=== PATIENT | female | born 1945 | race Caucasian/White ===

== ENCOUNTER → 2018-09-24 15:00 | Outpatient (CLI) | payer OTHER, SELFPAY ==
--- NOTE | 2018-09-24 | DI.MG.S_ITS ---
BILATERAL DIGITAL SCREENING MAMMOGRAM 3D/2D WITH CAD: 09/24/2018 CLINICAL: Routine screening. Family history of breast cancer. Comparison is made to exams dated: 05/21/2016 mammogram - [facility], 10/17/2014 mammogram, and 10/12/2013 mammogram - [facility]. The tissue of both breasts is heterogeneously dense. This may lower the sensitivity of mammography. Current study was also evaluated with a Computer Aided Detection (CAD) system. There are benign vascular calcifications in both breasts. No significant masses, calcifications, or other findings are seen in either breast. There has been no significant interval change. IMPRESSION: There is no mammographic evidence of malignancy. A 1 year screening mammogram is recommended. This exam was interpreted at Station ID: [id number]. NOTE: For mammograms, a report in lay terms will be sent to the patient. Approximately 15% of breast malignancies will not be visualized mammographically. In the management of a palpable breast mass, a negative mammogram must not discourage biopsy of a clinically suspicious lesion. Electronically Signed By: Roberth avitia/sebastien:09/24/2018 20:54:37 letter sent: Normal Exam ACR BI-RADS Category 2: Benign Finding(s) 3342F
== END ==
PROVIDERS: PCP Family Medicine; Visit Provider Family Medicine
DX: Z12.31 Encounter for screening mammogram for malignant neoplasm of breast (principal); Z80.3 Family history of malignant neoplasm of breast
CPT/HCPCS: 77063; 77067

== ENCOUNTER → 2020-01-06 09:51 | Outpatient (CLI) | payer MEDICARE, OTHER, SELFPAY ==
--- NOTE | 2020-01-06 | DI.MG.S_ITS ---
BILATERAL DIGITAL SCREENING MAMMOGRAM 3D/2D WITH CAD: 01/06/2020 CLINICAL: Routine screening. Family history of breast cancer. Comparison is made to exams dated: 09/24/2018 mammogram - [facility], 06/24/2017 mammogram - [facility], [facility]. The tissue of both breasts is heterogeneously dense. This may lower the sensitivity of mammography. Current study was also evaluated with a Computer Aided Detection (CAD) system. There is a 9 mm irregular mass with a spiculated margin in the left breast at 7 o'clock posterior depth 7.5 cm from the nipple. There is architectural distortion associated with the mass. No other significant masses, calcifications, or other findings are seen in either breast. IMPRESSION: INCOMPLETE: NEEDS ADDITIONAL IMAGING EVALUATION The 9 mm irregular mass in the left breast is indeterminate. A diagnostic mammogram and ultrasound is recommended. This exam was interpreted at Station ID: [id number]. NOTE: For mammograms, a report in lay terms will be sent to the patient. Approximately 15% of breast malignancies will not be visualized mammographically. In the management of a palpable breast mass, a negative mammogram must not discourage biopsy of a clinically suspicious lesion. Electronically Signed By: Jay Hudson M.D., jr/sebastien:01/06/2020 10:30:19 letter sent: Additional Imaging Needed ACR BI-RADS Category 0: Incomplete 3340F
== END ==
PROVIDERS: PCP Family Medicine; Referring Provider Family Medicine; Visit Provider Family Medicine
DX: Z12.31 Encounter for screening mammogram for malignant neoplasm of breast (principal); Z80.3 Family history of malignant neoplasm of breast
CPT/HCPCS: 77063; 77067

== ENCOUNTER → 2020-01-31 12:35 | Outpatient (CLI) | payer MEDICARE, OTHER, SELFPAY ==
--- NOTE | 2020-01-31 13:05 | DI.MG.S_ITS ---
Patient Name: XOCHITL SOTELO date: 1945 Sex: F Attending Physician: Azul Indications: Date: 01/31/2020 12:58 At the request of: AMALIA LU Procedure: MM special view LT UNILATERAL LEFT DIGITAL DIAGNOSTIC MAMMOGRAM 3D/2D WITH ADDITIONAL VIEWS: 01/31/2020 CLINICAL: Additional evaluation requested from prior study. Comparison is made to exams dated: 01/06/2020 mammogram, 09/24/2018 [address] - [facility], and 06/24/2017 mammogram - [facility]. The tissue of left breast is heterogeneously dense. This may lower the sensitivity of mammography. There is a developing 0.9 cm irregular high density mass with a spiculated margin and coarse calcification in the left breast at 9 o'clock posterior depth 1 cm from the nipple. This is seen in additional views. This is more prominent and increased in size. No other significant masses or calcifications are seen in the breast. IMPRESSION: INCOMPLETE: NEEDS ADDITIONAL IMAGING EVALUATION The developing 0.9 cm irregular high density mass in the left breast is indeterminate. An ultrasound is recommended. This was performed immediately following this exam. This exam was interpreted at Station ID: [id number]. NOTE: For mammograms, a report in lay terms will be sent to the patient. Approximately 15% of breast malignancies will not be visualized mammographically. In the management of a palpable breast mass, a negative mammogram must not discourage biopsy of a clinically suspicious lesion. Electronically Signed By: Maryuri skinner/:01/31/2020 14:52:56 Continued Report - Page 2 of 2 Patient Name: XOCHITL SOTELO date: 1945 Sex: F Attending Physician: Azul Indications: Date: 01/31/2020 12:58 At the request of: AMALIA LU Procedure: MM special view LT ACR BI-RADS Category 0: Incomplete 3340F
--- NOTE | 2020-01-31 13:59 | DI.US.S_ITS ---
Patient Name: XOCHITL SOTELO date: 1945 Sex: F Attending Physician: Azul Indications: Date: 01/31/2020 14:35 At the request of: AMALIA LU Procedure: US breast LT limited LIMITED ULTRASOUND OF LEFT BREAST AND AXILLA: 01/31/2020 CLINICAL: Patient returns today to evaluate a density in the left breast. Comparison is made to exams dated: 01/31/2020 mammogram, 01/06/2020 mammogram, 09/24/2018 mammogram - [facility], 06/24/2017 mammogram - [facility], 05/21/2016 mammogram - [facility], and 10/17/2014 mammogram - [facility]. Color flow and real-time ultrasound of the left breast 9 o'clock, retroareolar, and axilla regions were performed. Moseley scale images of the real-time examination were reviewed. There is a 9 mm irregular mass with an indistinct, angular, and spiculated margin in the left breast at 9 o'clock posterior depth. This irregular mass is hypoechoic with an echogenic boundary and posterior acoustic shadowing. This correlates with mammography findings. There are calcifications within the mass. Color flow imaging demonstrates that there is no vascularity present. No significant abnormalities were seen sonographically in the left axilla. IMPRESSION: SUSPICIOUS OF MALIGNANCY The 9 mm irregular mass in the left breast most likely is carcinoma and is at a moderate suspicion for malignancy. An ultrasound guided biopsy is recommended. Findings and recommendations were discussed with the patient by Dr Rey at time of exam. This exam was interpreted at Station ID: [id number]. Electronically Signed By: Maryuri skinner/:01/31/2020 15:11:42 letter sent: Biopsy Required Ultrasound BI-RADS: 4b Moderate suspicion of malignancy
== END ==
PROVIDERS: PCP Family Medicine; Referring Provider Family Medicine; Visit Provider Family Medicine
DX: R92.8 Other abnormal and inconclusive findings on diagnostic imaging of breast (principal); N63.25 Unspecified lump in the left breast, overlapping quadrants
CPT/HCPCS: 76642; 77065; G0279

== ENCOUNTER → 2020-02-21 10:09 | Outpatient (CLI) | payer MEDICARE, OTHER, SELFPAY ==
--- NOTE | 2020-02-21 | DI.MG.S_ITS ---
UNILATERAL LEFT DIGITAL DIAGNOSTIC MAMMOGRAM POST-PROCEDURE IMAGING FOR MARKER PLACEMENT: 02/21/2020 CLINICAL: Left post clip for left breast mass. Comparison is made to exams dated: 01/31/2020 ultrasound, 01/31/2020 mammogram, and 01/06/2020 mammogram - [facility]. The tissue of left breast is heterogeneously dense. This may lower the sensitivity of mammography. There is a marker clip in the left breast central to the nipple middle depth. This marker clip placement is 3 cm anterior from the biopsy site. Soft tissue gas foci are noted at the biopsy site. IMPRESSION: POST PROCEDURE MAMMOGRAM FOR MARKER PLACEMENT Marker clip placement in the left breast central to the nipple middle depth is migrated from biopsy site. Soft tissue foci of air fly the location of biopsy. This exam was interpreted at Station ID: [id number]. NOTE: For mammograms, a report in lay terms will be sent to the patient. Approximately 15% of breast malignancies will not be visualized mammographically. In the management of a palpable breast mass, a negative mammogram must not discourage biopsy of a clinically suspicious lesion. Electronically Signed By: Neto coates/:02/21/2020 15:02:35 ACR BI-RADS Category Post-procedure mammogram for marker placement
--- NOTE | 2020-02-21 | PATH_ITS ---
[facility] Accession Number: [id number] . 01 Material submitted: . breast - LEFT BREAST MASS 900 RETROAREOLAR . 01 Clinical history: . LEFT BREAST MASS . 01 Diagnosis: Left Breast Mass, 9 o'clock, Retroareolar, Needle Core Biopsies: Invasive ductal carcinoma; see cancer case summary. . . CANCER CASE SUMMARY - BREAST . Procedure: Needle biopsies. Specimen laterality: Left. Tumor site: 9 o'clock, retroareolar. Tumor size: 8 mm in greatest linear extent. Histologic type: Invasive carcinoma of no special type (ductal). Histologic grade: Tubular differentiation: Score 1. Nuclear pleomorphism: Score 2. Mitotic rate: Score 1. Overall grade: Grade 1 DCIS: Not identified. Lymphovascular invasion: Not identified. Microcalcifications: Not identified. . CAP BREAST BIOMARKER REPORTING TEMPLATE: . Estrogen Receptor (ER) Status: Positive, 90% Average intensity of staining: Strong Primary antibody: SP1 Progesterone Receptor (PgR) Status: Positive, 20% Average intensity of staining: Intermediate Primary antibody: 1E2 HER2 (by immunohistochemistry): Negative (1+) Primary antibody: 4B5 . . Cold Ischemia and Fixation Times: Meets requirements in the latest version of the ASCO/CAP guidelines. Testing performed on Block Number: . TECHNICAL NOTE: The scoring criteria for breast biomarkers by immunohistochemistry is based on the current ASCO/CAP guidelines (Maximino et al, Arch Pathol Lab Med 2010: 134(6): 907-922 / Zuleyma Snow, Arch Pathol Lab Med 2014: 138(2): 241-256). Deparaffinized sections of formalin fixed tissue (along with appropriate positive controls) are incubated with the above antibody(s). Using the automated Pl[place]ine stainer, tissue is incubated with the designated antibody* which is then localized by a non-biotin, dual polymer detection system. The external controls are reviewed for appropriate reactivity and found to be adequate. Results on the target cell population are indicated above. These tests have not been validated on decalcified tissue. . * This test was developed and its performance characteristics determined by [employer]. It has not been cleared or approved by the U.S. Food and Drug Administration. The FDA has determined that such clearance or approval is not necessary. This test is used for clinical purposes. It should not be regarded as investigational or for research. V 02/24/2020 1457 [facility] . 01 Comment: As part of routine quality eng, Dr. Storey has reviewed this case and agrees with the diagnosis of invasive ductal carcinoma. The finding of carcinoma was reported to Dr. Liang via RN Miryam by Dr. Alford on 02/23/2020. . 01 Electronically signed: . Bob Alford MD, PhD, Pathologist NPI- [id number] . 01 Gross description: . Received one formalin-filled container, labeled with the patient's name and designated LT breast mass 9 o'clock retroareolar. The specimen is received with a plastic filter in container, sample loose in container and consists of four yellow-molina to molina-nesbitt portions of tissue and blood which range in size from 0.7 x 0.4 x 0.4 cm to 1.5 x 0.4 x 0.4 cm. All fragments are totally submitted in one cassette. No collection date or time per container. Possible collection date and time per requisition: 02/21/20 at 12:14. Total fixation time: Approximately 36 hours. ([id number]) /[facility] 02/23/20209 Local . 01 Pathologist provided ICD-10: C50.919 . 01 CPT . 810341, M60045, [id number] Performed at: 01 [facility] [address] [place] [address] [address] [facility], [place], [place] [id number] MD Joel Nelson MD Phone: [phone]
--- NOTE | 2020-02-21 | DI.US.S_ITS ---
ULTRASOUND GUIDED BIOPSY LEFT BREAST USING VACUUM DEVICE WITH MARKING DEVICE INSERTED AND POST DIGITAL MAMMOGRAPHIC IMAGIN02/21/2020 CLINICAL: Left breast mass. Left breast biopsy, clip placement imaging. PATIENT CONSENT: Risks (minor bleeding, infection, vasovagal reaction and repeat procedure), benefits and alternatives were explained to the patient and written informed consent was obtained. Correlation is made to exams dated: 02/21/2020 mammogram, 01/31/2020 ultrasound, 01/31/2020 mammogram, and 01/06/2020 mammogram - [facility]. An ultrasound guided biopsy using real-time ultrasound was performed for the irregular shaped mass located in the left breast at 9 o'clock middle depth. The mass measured 0.9 x 0.9 x 0.7 cm on the prior diagnostic ultrasound. The skin was prepped in the usual manner. Local anesthetic was administered to the access site. A small incision was made in the breast. The abnormality was approached from the lateral aspect. A biopsy needle was placed adjacent to the abnormality under ultrasound guidance. Once the needle was documented to be in the correct location, four specimens were obtained using the Mammotome biopsy system. A Celero clip was inserted into the biopsy cavity. Post procedure digital mammographic imaging was obtained. The specimens were sent to the laboratory for pathological analysis. IMPRESSION: ULTRASOUND GUIDED BIOPSY MALIGNANT Ultrasound guided biopsy of the mass in the left breast at 9 o'clock middle depth was successful. Pathology indicates malignant invasive ductal carcinoma (ID). Pathology results are concordant with imaging findings. A surgical/oncologic consultation is recommended. This exam was interpreted at Station ID: [id number]. Neto coates,slc/:02/29/2020 08:24:36
--- NOTE | 2020-02-24 14:40 | PC.NURSE ---
Pt called requesting to speak to oncologist to discuss recent imaging and neww CA diagnoses. She reports her PCP gave her results and instructed her to call this clinic and speak to an oncologist. This RN provided pt with referral protocol and discussed involvement of pt Aysha negron. Pt information provided to Aysha who agrees to contact pt.
== END ==
PROVIDERS: PCP Family Medicine; Referring Provider Family Medicine; Visit Provider Family Medicine
DX: C50.812 Malignant neoplasm of overlapping sites of left female breast (principal); Z17.0 Estrogen receptor positive status [ER+]
CPT/HCPCS: 19083; 77065

== ENCOUNTER → 2020-09-05 10:39 | Outpatient (CLI) | payer MEDICARE, OTHER, SELFPAY ==
--- NOTE | 2020-09-05 | DI.MRI.S_ITS ---
PROCEDURE: MR STROKE Pre- and post-contrast brain MRI, non-contrast brain MR angiogram, pre- and postcontrast neck MR angiogram INDICATIONS: Acute cerebellar ataxia TECHNIQUE: Brain: Noncontrast axial T1 spin echo, axial T2 fast spin echo, sagittal and axial FLAIR, coronal T2 fast spin echo, axial gradient echo, axial diffusion and ADC through the brain. After the administration of contrast, axial 3D VIBE of the cranial vasculature and brain. Brain MRA: Non-contrast 3-D time of flight MR angiogram, with multiple cuzvurp-cuahxmdvu-qvgirhciap (MIP) reformats performed. Neck MRA: Axial and sagittal TruFISP through the neck. Coronal dynamic MR angiogram during administration of contrast in the arterial and venous phases, with 3-dimenstional acoiuzt-czdwxliix-qfnibdbldg (MIP) reformats constructed from subtraction images. COMPARISON: None. FINDINGS: Image quality: Excellent. BRAIN: CSF spaces: Ventricles are normal in size and shape. Basal cisterns are patent. No extra-axial fluid collections. Brain: No intracranial bleeds or mass effects. Moseley-white matter interface is normal. Diffusion weighted images show no acute ischemic insults. Brainstem appears normal. Normal intravascular flow voids are present. No abnormal intracranial enhancement. Brain parenchymal volume loss is seen. Chronic small vessel ischemic changes are seen. Skull and face: Calvarial marrow signal is normal. Orbits appear normal. Sinuses: Mucous retention cysts can be seen within the inferior aspects of the maxillary sinuses. Sinuses and mastoids are otherwise clear. BRAIN MR ANGIOGRAM: Anterior circulation: Intracranial internal carotid arteries are normal in size and enhancement. The flow within the paired anterior cerebral arteries is normal and symmetric. The flow within the middle cerebral arteries is normal and symmetric. The anterior communicating artery is seen. No stenoses, occlusions, or aneurysms. Posterior circulation: The left vertebral artery is normal. The right vertebral artery largely terminates in the right posterior inferior cerebellar artery. There is a normal appearing basilar artery. The flow within the posterior cerebral arteries is normal and symmetric. No stenoses, occlusions, or aneurysms. NECK MR ANGIOGRAM: Carotids: Incidental note is made of a common origin of the right brachiocephalic artery and the left common carotid artery (bovine type arch). This is considered to be a developmental variant of no clinical consequence. The origins of the common carotid arteries appear patent. The calibers and courses of both common carotid arteries are normal. The bifurcation regions appear normal bilaterally. The internal carotid arteries demonstrate normal course and caliber. Posterior circulation: The origin of the right vertebral artery demonstrates at least 50% narrowing. The origin of the left vertebral artery is unremarkable. More superior portions of both vertebral arteries demonstrate normal course and caliber, with the left vertebral artery dominant to the right. Miscellaneous: Subclavian arteries appear patent. Pre-contrast images through the neck show no soft tissue abnormalities. IMPRESSION: BRAIN MRI: Negative for acute or subacute infarction, including involving the cerebellum. No masses or abnormal enhancement can be seen. Note is made of age-appropriate brain parenchymal volume loss and chronic small vessel ischemic changes. BRAIN MR ANGIOGRAM: No significant intracranial arterial abnormality is seen. NECK MR ANGIOGRAM: No significant carotid narrowing can be seen. At least 50% narrowing of the origin of the right vertebral artery. Dictated by: Aleksander Garcia M.D. on 09/05/2020 at 12:36 Approved by: Aleksander Garcia M.D. on 09/05/2020 at 12:39
== END ==
PROVIDERS: PCP Family Medicine; Referring Provider Family Medicine; Visit Provider Family Medicine
DX: G11.9 Hereditary ataxia, unspecified (principal)
CPT/HCPCS: 70548; 70553; A9579

== ENCOUNTER → 2020-10-04 11:15 | Outpatient (CLI) | payer MEDICARE, OTHER, SELFPAY | PROVIDERS: PCP Family Medicine; Referring Provider Internal Medicine; Visit Provider Internal Medicine | DX: C50.912 Malignant neoplasm of unspecified site of left female breast (principal); Z53.8 Procedure and treatment not carried out for other reasons ==

== ENCOUNTER → 2020-10-25 12:19 | Outpatient (CLI) | payer MEDICARE, OTHER, SELFPAY ==
[2020-10-25 20:43] LABS: COVID19 - ORCAS (NP or Nasal) Negative (Negative)
== END ==
PROVIDERS: PCP Family Medicine; Visit Provider Family Medicine
DX: Z20.822 Contact with and (suspected) exposure to COVID-19 (principal)
CPT/HCPCS: C9803; U0003

== ENCOUNTER 2020-11-23 14:02 | Emergency (ER) | payer MEDICARE, OTHER, SELFPAY ==
[2020-11-23 14:13] VITALS: BP 198/84; PULSE 85; RESP 15; TEMP 36.3; O2SAT 97; BMI 33.9
--- NOTE | 2020-11-23 14:16 | DI.US.S_ITS ---
PROCEDURE: US PERIPH VENOUS LOW EXTREM LT INDICATIONS: Swelling and redness TECHNIQUE: Real-time imaging, as well as color and pulse Doppler interrogation, were performed of the lower extremity deep veins from the inguinal ligament to the popliteal fossa. COMPARISON: None. FINDINGS: The common femoral, femoral and popliteal veins are normally compressible, and free of intraluminal thrombus. Color and pulse Doppler demonstrate normal phasic intraluminal flow. There is normal augmentation response to distal compression maneuver. IMPRESSION: No evidence of deep venous thrombosis, left lower extremity Dictated by: Dante Toure M.D. on 11/23/2020 at 14:11 Approved by: Dante Toure M.D. on 11/23/2020 at 14:12
--- NOTE | 2020-11-23 16:21 | ED.EXTPRO ---
HPI - Extremity Problem General Chief complaint: Extremity Problem,Nontraumatic Stated complaint: sent from [facility], swollen/red leg, poss inf or DVT Time Seen by Provider: 11/23/20 16:21 Source: patient Mode of arrival: Ambulatory Limitations: no limitations History of Present Illness HPI Narrative: 75-year-old woman presents with left lower extremity edema before to rule out deep venous thrombosis. She notes that she has a history of and a hyperlipidemia and breast cancer. She also notes that in May of 2020 she had an injury to the left anterior ortiz that took an extended period of time to heal is occasionally still red and occasionally still painful. When she continued to have more edema on the left side rather than the right side she saw a provider at work is who recommended an ultrasound. She describes no chest pain, orthopnea, palpitations, dyspnea or exertional dyspnea. She has had no fevers or chills. Does not describe any additional lymphadenopathy upper left leg. She does note that her mother had chronic severe lymphedema that started about the same age that the patient currently is. She found that wearing a compression sock yesterday was helpful with both pain and swelling. Related Data Home Medications Medication Instructions Recorded Confirmed anastrozole 1 mg tablet 1 mg PO DAILY 11/20/20 11/23/20 ibuprofen 400 mg tablet 400 mg PO Q6H PRN 11/20/20 11/23/20 multivitamin 1 tab PO DAILY 11/20/20 11/23/20 calcium carbonate 500 mg (1,250 1 tab PO BID 11/23/20 11/23/20 mg)-vitamin D3 200 unit tablet Previous Rx's Medication Instructions Recorded pravastatin 40 mg PO Q EVENING #90 tab 09/04/16 Allergies Allergy/AdvReac Type Severity Reaction Status Date / Time Sulfa (Sulfonamide Allergy Mild Sores in Verified 11/23/20 14:13 Antibiotics) mouth [SULFA (SULFONAMIDE ANTIBIOTICS)] Review of Systems Review of Systems Narrative: Remainder of complete review of systems is otherwise unremarkable except for that included in the HPI. Patient History Medical History Other hyperlipidemia (07/11/15) Swelling of left lower extremity Social History Smoking Status: Never smoker Smoking Status: Never smoker alcohol intake frequency: holidays/special occasions only Substance Use Type: does not use Exam Narrative Exam Narrative: General: Alert appropriate in no acute distress Respiratory: Able to speak in full sentences, no obvious respiratory distress Skin: No obvious rashes, warm and dry Lower extremities: 1+ lower extremity edema on the right 2+ on the left. She has a wound on the left anterior ortiz that is well healed but still visible. There is no surrounding cellulitis no abscess and no evidence of infection. Neurologic: Grossly intact no obvious asymmetries or abnormalities Psych: appropriate insight and affect, cooperative Initial Vital Signs Initial Vital Signs: Vital Signs Temperature 97.4 F L 11/23/20 14:13 Pulse Rate 85 11/23/20 14:13 Respiratory Rate 15 11/23/20 14:13 Blood Pressure 198/84 H 11/23/20 14:13 Pulse Oximetry 97 11/23/20 14:13 Course Orders Ordered: ED Orders 11/23/20 14:16 US periph venous low extrem lt Stat Vital Signs Vital signs: Vital Signs - 8 hr 11/23/20 14:13 Temperature 97.4 F L Pulse Rate 85 Respiratory Rate 15 Blood Pressure 198/84 H Pulse Oximetry 97 MDM - Extremity (Nontraumatic) Imaging Data US - DVT: Radiologist's Impression: FINDINGS: The common femoral, femoral and popliteal veins are normally compressible, and free of intraluminal thrombus. Color and pulse Doppler demonstrate normal phasic intraluminal flow. There is normal augmentation response to distal compression maneuver. IMPRESSION: No evidence of deep venous thrombosis, left lower extremity Dictated by: Dante Toure M.D. on 11/23/2020 at 14:11 MDM Narrative Medical decision making narrative: 75-year-old woman with lower extremity edema. Injury to the anterior left ortiz about 6 months ago likely disrupted lymphatic return contributing to the continued swelling on the side. No evidence of a DVT or cellulitis. He had a nice discussion regarding compression socks and their use in managing chronic edema as well as pain from the persistent edema. She is safe for home discharge Discharge Plan Departure Patient Disposition: Home Clinical Impression: Swelling of left lower extremity Instructions: DI for Dependent Edema Activity Restrictions/Additional Instructions: Ultrasound today does not show any evidence of deep vein thrombosis. Your clinical exam does not suggest any cellulitis. I would recommend using compression socks. Doing an online search for compression socks will bleed due to ones that are used in the running community or by providers in people that stand up for extended period of time. I find that these commercial socks are much more comfortable than any of the prescription versions. I would encourage you to wear them as much as you are able to to prevent continued recurrent edema. I wish you the best Prescriptions: No Action pravastatin 40 MG tablet 40 mg PO Q EVENING Qty: 90 RF: 3 calcium carbonate-vitamin D3 [Calcium 500 + D] 500 mg(1,250mg) -200 unit tablet 1 tab PO BID RF: 0 ibuprofen 400 mg tablet 400 mg PO Q6H PRN (Reason: pain) RF: 0 multivitamin [Multiple Vitamins] Tablet 1 tab PO DAILY RF: 0 anastrozole 1 mg tablet 1 mg PO DAILY RF: 0 Referrals: Carlie Sandhu PA-C [Primary Care Provider] -
--- NOTE | 2020-11-23 17:54 | PC.NURSE ---
Assessed and seen by MD in waiting area without RN involvement.
== END 2020-11-23 17:55 | disposition home or self-care (01) ==
PROVIDERS: Emergency Provider Emergency Medicine; PCP Physician Assistant
DX: M79.89 Other specified soft tissue disorders (principal)
CPT/HCPCS: 93971; 99281; 99283

== ENCOUNTER → 2021-07-12 09:10 | Outpatient (CLI) | payer MEDICARE, OTHER, SELFPAY ==
[2021-07-12 19:06] LABS: Add Manual Diff / Slide Review NO; Basophils Absolute Auto 100 /uL (0-100); Basophils Percent Auto 1.3 % (0-2); Eosinophils Absolute Auto 200 /uL (0-450); Eosinophils Percent Auto 3.7 % (2-4); Hematocrit 40.1 % (36-46); Hemoglobin 13.5 g/dL (12.0-16.0); Lymphocytes Absolute Auto 1600 /uL (1100-4500); Lymphocytes Percent Auto 28.9 % (25-40); Mean Corpuscular HGB Conc 33.8 % (30-36); Mean Corpuscular Hemoglobin 29.7 PG (26-34); Mean Corpuscular Volume 87.8 fL (80-100); Monocytes Absolute Auto 600 /uL (0-900); Monocytes Percent Auto 9.9 % (3-14); Neutrophils Absolute Auto 3200 /uL (1500-7000); Neutrophils Percent Auto 56.2 % (50-75); Platelet Count 230 X10^3/uL (150-400); Red Blood Cell Count 4.57 X10^6/uL (4.0-5.2); White Blood Cell Count 5.7 X10^3/uL (4.5-11.0)
[2021-07-12 19:08] LABS: Alanine Aminotransferase 23 IU/L (<35); Albumin 4.1 g/dL (3.5-5.0); Albumin Globulin Ratio 1.2 (1.0-2.8); Alkaline Phosphatase 85 U/L (38-126); Aspartate Aminotransferase 32 IU/L (14-36); BUN Creatinine Ratio 26.3 (6-22); Bilirubin Total 0.5 mg/dL (0.2-1.3); Blood Urea Nitrogen 21 mg/dL (7-17); Calcium 9.6 mg/dL (8.4-10.2); Carbon Dioxide 28 mmol/L (22-32); Chloride 107 mmol/L (98-107); Cholesterol 202 mg/dL (140-199); Estimated Glomerular Filt Rate > 60.0 mL/min (>60); Globulin 3.3 g/dL (1.7-4.1); Glucose 98 mg/dL (80-110); HDL Cholesterol 48 mg/dL (40-60); HEMOLYSIS 21 (0-50); LDL Cholesterol Calculated 115 mg/dL (<100); Potassium 4.3 mmol/L (3.4-5.1); Sodium 140 mmol/L (137-145); Total Protein 7.4 g/dL (6.3-8.2); Triglycerides 193 mg/dL (35-150)
[2021-07-12 19:35] LABS: TSH w/ Reflex to FT4 2.81 uIU/mL (0.47-4.68)
== END ==
PROVIDERS: PCP Physician Assistant; Visit Provider Family Medicine
DX: Z79.899 Other long term (current) drug therapy (principal); I10 Essential (primary) hypertension; M79.89 Other specified soft tissue disorders
CPT/HCPCS: 80053; 80061; 84443; 85025

== ENCOUNTER → 2022-02-21 15:46 | Outpatient (CLI) | payer MEDICARE, OTHER, SELFPAY ==
--- NOTE | 2022-02-21 | DI.MG.S_ITS ---
BILATERAL DIGITAL SCREENING MAMMOGRAM 3D/2D WITH CAD: 02/21/2022 CLINICAL: Routine screening. Personal history of left breast cancer. Family history of breast cancer. Comparison is made to exams dated: 02/08/2021 mammogram, 11/07/2020 mammogram - [facility], 01/06/2020 mammogram, and 09/24/2018 mammogram - [facility]. Both breasts are heterogeneously dense, which may obscure small masses (category c / 51-75% glandular tissue). Current study was also evaluated with a Computer Aided Detection (CAD) system. No significant masses, calcifications, or other findings are seen in either breast. There has been no significant interval change. IMPRESSION: NEGATIVE There is no mammographic evidence of malignancy. A 1 year screening mammogram is recommended. This exam was interpreted at Station ID: [id number]. NOTE: For mammograms, a report in lay terms will be sent to the patient. Approximately 15% of breast malignancies will not be visualized mammographically. In the management of a palpable breast mass, a negative mammogram must not discourage biopsy of a clinically suspicious lesion. Electronically Signed By: Jay Hudson M.D., jr/sebastien:02/22/2022 08:45:41 letter sent: Normal Exam ACR BI-RADS Category 1: Negative [id number]
== END ==
PROVIDERS: PCP Family Medicine; Referring Provider Internal Medicine; Visit Provider Internal Medicine
DX: Z12.31 Encounter for screening mammogram for malignant neoplasm of breast (principal); Z80.3 Family history of malignant neoplasm of breast; Z85.3 Personal history of malignant neoplasm of breast
CPT/HCPCS: 77063; 77067

== ENCOUNTER → 2022-07-02 10:59 | Outpatient (CLI) | payer MEDICARE, OTHER, SELFPAY | PROVIDERS: PCP Family Medicine; Referring Provider Registered Nurse; Visit Provider Registered Nurse | DX: Z79.818 Long term (current) use of other agents affecting estrogen receptors and estrogen levels; Z13.820 Encounter for screening for osteoporosis; Z78.0 Asymptomatic menopausal state | CPT/HCPCS: 77080 ==

== ENCOUNTER 2022-08-19 18:07 | Emergency (ER) | payer MEDICARE, OTHER, SELFPAY ==
[2022-08-19] VITALS (7 sets, daily range): BP systolic 161–221; BP diastolic 74–91; PULSE 81–98; RESP 12–17; TEMP 36.8; O2SAT 96–99; BMI 33.3
--- NOTE | 2022-08-19 18:20 | DI.CT.S_ITS ---
PROCEDURE: CT ABDOMEN PELVIS W CON INDICATIONS: Abdominal pain TECHNIQUE: After the administration of oral and IV contrast, axial sections were acquired from the lung bases to the pubic symphysis. Coronal and sagittal reformats were performed. For radiation dose reduction, the following was used: automated exposure control, adjustment of mA and/or kV according to patient size. COMPARISON: None. FINDINGS: Image quality: Excellent. Lung bases: Unremarkable. Small hiatal hernia. Heart: No significant findings. ABDOMEN: Liver: Normal in size. Mild hepatic steatosis. There are multiple low-density nodules in liver, most likely hepatic cysts. Gallbladder: There are multiple gallstones. No gallbladder wall thickening or pericholecystic fluid collection Biliary ducts: Unremarkable. Pancreas: Unremarkable. Spleen: Unremarkable. Adrenal Glands: Unremarkable. Kidneys and Ureters: Unremarkable. Stomach and Bowel: Stomach, small bowel loops, and colon are normal in caliber. There are numerous colonic diverticula. There is focal thickening and pericolonic stranding in the distal descending colon/proximal sigmoid colon, consistent with acute diverticulitis. Peritoneum: No abnormal intraperitoneal fluid. No free air. Ventral Wall: No hernia. Abdominal Nodes: No retroperitoneal or mesenteric adenopathy by size criteria. Vessels: Aorta and inferior vena cava are normal in size. PELVIS: Pelvic Organs: Unremarkable. Bladder: Unremarkable. Pelvic Nodes: No enlarged lymph nodes. Miscellaneous: No inguinal hernias are seen. Bones: Moderate to severe degenerative changes in lumbar spine. IMPRESSION: 1. Acute diverticulitis of the distal descending colon/proximal sigmoid colon. 2. Cholelithiasis. No CT findings to suggest acute cholecystitis. 3. Mild hepatic steatosis. There are multiple hepatic cysts. Dictated by: Radha Ervin M.D. on 08/19/2022 at 20:34 Approved by: Radha Ervin M.D. on 08/19/2022 at 20:38
--- NOTE | 2022-08-19 18:36 | ED.ABDPAIN ---
HPI - Abdominal Pain <Harsha Connor PA-C - Last Filed: 08/19/22 20:22> General Chief Complaint: Abdominal Pain Stated Complaint: abd pain Time Seen by Provider: 08/19/22 18:19 Source: patient Mode of arrival: Ambulatory History of Present Illness HPI narrative: 77-year-old female with past medical history breast cancer, hypertension, hyperlipidemia presentsTo the ED with 4 days of lower abdominal pain. Patient was seen by Dr. Gamboa at the [facility] earlier today, sent to the ED for further evaluation due to concern over the physical exam where Patient exhibited rebound and guarding. Patient states that her pain is dull, spans the lower abdomen on both sides, worsened with movements and walking. Patient states that the pain is very mildly alleviated by bowel movements. Patient endorses loose bowel movements for the past 3 days, denies melena or hematochezia, denies that it is watery diarrhea. Endorses eating some sabillon on the day prior to feeling sick. Denies fever, chills, chest pain, shortness of breath, cough, nausea, vomiting, dysuria, lightheadedness, dizziness, syncope. Related Data Home Medications Medication Instructions Recorded Confirmed anastrozole 1 mg tablet 1 mg PO DAILY 11/20/20 08/19/22 ibuprofen 400 mg tablet 400 mg PO Q6H PRN pain 11/20/20 08/19/22 multivitamin (Multiple Vitamins 1 tab PO DAILY 11/20/20 08/19/22 tablet) calcium carbonate 500 mg calcium 500 mg PO BID 08/19/22 08/19/22 (1,250 mg) tablet Previous Rx's Medication Instructions Recorded pravastatin 40 mg tablet 40 mg PO Q EVENING #90 tabs 01/30/22 triamcinolone acetonide 0.1 % 1 applic topical DAILY #30 grams 03/11/22 topical cream ciprofloxacin HCl 500 mg tablet 500 mg PO BID #20 tabs 08/19/22 (Cipro) metronidazole 500 mg tablet 500 mg PO Q8H #30 tabs 08/19/22 Allergies Allergy/AdvReac Type Severity Reaction Status Date / Time Sulfa (Sulfonamide Allergy Mild Sores in Verified 03/07/22 14:14 Antibiotics) mouth [SULFA (SULFONAMIDE ANTIBIOTICS)] Review of Systems <Harsha Connor PA-C - Last Filed: 08/19/22 20:22> Review of Systems ROS Unobtainable: All systems reviewed & are unremarkable except as noted in HPI and below Constitutional Constitutional: Denies chills, Denies fatigue, Denies fever(s), Denies frequent falls, Denies lethargy and Denies weakness Eyes Eyes: Denies change in vision, Denies eye discharge, Denies irritation and Denies loss of vision ENT Ears, Nose, Mouth, and Throat: Denies change in voice, Denies dizziness, Denies neck pain, Denies sore throat and Denies throat swelling Cardiovascular Cardiovascular: Denies chest pain, Denies irregular heart rhythm, Denies lightheadedness, Denies palpitations, Denies dyspnea, Denies dyspnea on exertion and Denies orthopnea Respiratory Respiratory: Denies cough, Denies dyspnea, Denies dyspnea on exertion and Denies wheezing Gastrointestinal Gastrointestinal: Reports abdominal pain, Denies change in bowel habits, Denies diarrhea, Reports loose stools, Denies nausea and Denies vomiting Genitourinary Genitourinary: Denies hematuria, Denies flank pain, Denies urinary incontinence and Denies urinary urgency Musculoskeletal Musculoskeletal: Denies back pain, Denies muscle weakness, Denies neck pain, Denies numbness and Denies tingling Integumentary/Breasts Skin/Breast: Denies pruritus, Denies erythema, Denies rash and Denies wounds Neurologic Neurologic: Denies behavioral changes, Denies confusion, Denies dizziness, Denies frequent falls, Denies loss of vision, Denies numbness, Denies tingling and Denies weakness Psychiatric Psychiatric: Denies anxiety, Denies behavioral changes, Denies confusion, Denies depression, Denies homicidal ideation and Denies suicidal ideation Endocrine Endocrine: Denies fatigue, Denies flushing and Denies palpitations Hematologic/Lymphatic Hematologic/Lymphatic: Denies easy bruising Allergic/Immunologic Allergic/Immunologic: Denies urticaria, Denies throat swelling and Denies wheezing Patient History <Harsha Connor PA-C - Last Filed: 08/19/22 20:22> Medical History Other hyperlipidemia (07/11/15) Social History Smoking Status: Never smoker Smoking Status: Never smoker alcohol intake frequency: holidays/special occasions only Substance Use Type: does not use Exam <Harsha Connor PA-C - Last Filed: 08/19/22 20:22> Narrative Exam Narrative: Const General:?cooperative, healthy appearing and comfortable [facility] Head:?normal to inspection Ears:?hearing grossly normal bilaterally Nose:?external nose normal Face and sinus:?normal facial exam and sinuses nontender Mouth:?oral mucosae normal Throat:?posterior oropharynx normal Eyes General:?appearance normal, both eyes and all related structures Neck Neck:?normal visual inspection and no lymphadenopathy noted Resp Effort & Inspection:?normal respiratory effort Auscultation:?clear to auscultation bilaterally Cardio Rate:?regular rate Rhythm:?regular rhythm GI Abdomen is soft, nondistended. Abdomen is tender to palpation in bilateral lower quadrants as well as the suprapubic area. There is some guarding and rebound. Neuro General:?patient alert, patient awake and patient oriented x3 Initial Vital Signs Initial Vital Signs: Vital Signs Temperature 98.3 F 08/19/22 18:17 Pulse Rate 98 H 08/19/22 18:17 Respiratory Rate 17 08/19/22 18:17 Blood Pressure 221/91 H 08/19/22 18:17 Pulse Oximetry 96 08/19/22 18:17 Oxygen Delivery Method Room Air 08/19/22 18:17 <Erika Simon DO - Last Filed: 08/20/22 02:12> Initial Vital Signs Initial Vital Signs: Vital Signs Temperature 98.3 F 08/19/22 18:17 Pulse Rate 98 H 08/19/22 18:17 Respiratory Rate 17 08/19/22 18:17 Blood Pressure 221/91 H 08/19/22 18:17 Pulse Oximetry 96 08/19/22 18:17 Oxygen Delivery Method Room Air 08/19/22 18:17 Course <Harsha Connor PA-C - Last Filed: 08/19/22 20:22> Orders Ordered: ED Orders 08/19/22 18:20 CT abdomen pelvis w con Stat 08/19/22 18:28 Complete Blood Count AUTO DIFF Stat Comprehensive Metabolic Panel Stat Lactate (Lactic Acid) Stat Lipase Stat Vital Signs Vital signs: Vital Signs - 8 hr 08/19/22 18:17 08/19/22 18:33 08/19/22 18:35 Temperature 98.3 F Pulse Rate 98 H 90 91 H Respiratory Rate 17 Blood Pressure 221/91 H Pulse Oximetry 96 97 99 Oxygen Delivery Method Room Air 08/19/22 18:35 08/19/22 19:22 08/19/22 19:30 Temperature Pulse Rate 89 82 Respiratory Rate 12 Blood Pressure 204/84 H Pulse Oximetry 98 Oxygen Delivery Method 08/19/22 19:33 08/19/22 19:33 08/19/22 20:00 Temperature Pulse Rate 82 Respiratory Rate 17 Blood Pressure 174/74 H 161/74 H Pulse Oximetry 99 Oxygen Delivery Method 08/19/22 20:00 Temperature Pulse Rate 81 Respiratory Rate 14 Blood Pressure Pulse Oximetry 97 Oxygen Delivery Method <Erika Simon DO - Last Filed: 08/20/22 02:12> Orders Ordered: ED Orders 08/19/22 18:20 CT abdomen pelvis w con Stat 08/19/22 18:28 Complete Blood Count AUTO DIFF Stat Comprehensive Metabolic Panel Stat Lactate (Lactic Acid) Stat Lipase Stat Vital Signs Vital signs: Vital Signs - 8 hr 08/19/22 18:17 08/19/22 18:33 08/19/22 18:35 Temperature 98.3 F Pulse Rate 98 H 90 91 H Respiratory Rate 17 Blood Pressure 221/91 H Pulse Oximetry 96 97 99 Oxygen Delivery Method Room Air 08/19/22 18:35 08/19/22 19:22 08/19/22 19:30 Temperature Pulse Rate 89 82 Respiratory Rate 12 Blood Pressure 204/84 H Pulse Oximetry 98 Oxygen Delivery Method 08/19/22 19:33 08/19/22 19:33 08/19/22 20:00 Temperature Pulse Rate 82 Respiratory Rate 17 Blood Pressure 174/74 H 161/74 H Pulse Oximetry 99 Oxygen Delivery Method 08/19/22 20:00 Temperature Pulse Rate 81 Respiratory Rate 14 Blood Pressure Pulse Oximetry 97 Oxygen Delivery Method MDM - Abdominal Pain <Harsha Connor PA-C - Last Filed: 08/19/22 20:22> Lab Data 08/19/22 18:28 08/19/22 18:28 Labs: Lab Results 08/19/22 08/19/22 08/19/22 Range/Units 18:28 18:28 18:28 WBC 6.9 (4.5-11.0) X10^3/uL RBC 4.46 (4.0-5.2) X10^6/uL Hgb 13.2 (12.0-16.0) g/dL Hct 40.0 (36-46) % MCV 89.8 (80-100) fL MCH 29.7 (26-34) PG MCHC 33.1 (30-36) % RDW 13.3 (11.6-14.8) % Plt Count 245 (150-400) X10^3/uL Neut % (Auto) 48.2 L (50-75) % Lymph % (Auto) 38.7 (25-40) % [place] % (Auto) 9.6 (3-14) % Eos % (Auto) 3.2 (2-4) % Baso % (Auto) 0.3 (0-2) % Neut # (Auto) 3300 (6475-9569) /uL Lymph # (Auto) 2700 (0352-5263) /uL [place] # (Auto) 700 (0-900) /uL Eos # (Auto) 200 (0-450) /uL Baso # (Auto) 0 (0-100) /uL Sodium 138 (137-145) mmol/L Potassium 4.1 (3.4-5.1) mmol/L Chloride 104 (98-107) mmol/L Carbon Dioxide 27 (22-32) mmol/L BUN 15 (7-17) mg/dL Creatinine 0.73 (0.52-1.04) mg/dL Estimated GFR > 60 (>60) mL/min BUN/Creatinine Ratio 20.5 (6-22) Glucose 87 (80-110) mg/dL Lactate 1.2 (0.7-2.1) mmol/L Calcium 9.0 (8.4-10.2) mg/dL Total Bilirubin 0.4 (0.2-1.3) mg/dL AST 36 (14-36) IU/L ALT 32 (<35) IU/L Alkaline Phosphatase 93 (38-126) U/L Total Protein 8.2 (6.3-8.2) g/dL Albumin 4.3 (3.5-5.0) g/dL Globulin 3.9 (1.7-4.1) g/dL Albumin/Globulin Ratio 1.1 (1.0-2.8) Lipase 41 (23-300) U/L Point of care testing: Urine Dip Bedside Urine Glucose Negative Bedside Urine Bilirubin - Negative Bedside Urine Ketone - Negative Urine Specific [place] 1.010 Bedside Urine Occult Blood - Negative Bedside Urine pH 6.0 Bedside Urine Protein - Negative Bedside Urine Urobilinogen - Negative Bedside Urine Nitrite - Negative Bedside Urine Leukocytes - Negative Esterase MDM Narrative Medical decision making narrative: 77-year-old female with past medical history breast cancer, hypertension, hyperlipidemia presentsTo the ED with 4 days of lower abdominal pain. Concern for appendicitis versus diverticulitis versus UTI versus pyelonephritis versus gastroenteritis versus maligancy other intra-abdominal etiology. Will obtain labs, UA, CT abdomen pelvis. Patient declines pain medication at this time stating that her pain is mild. Will reassess. Patient is signed out to Dr. Erika Simon at this time. <Erika Simon, - Last Filed: 08/20/22 02:12> Lab Data Labs: Lab Results 08/19/22 08/19/22 08/19/22 Range/Units 18:28 18:28 18:28 WBC 6.9 (4.5-11.0) X10^3/uL RBC 4.46 (4.0-5.2) X10^6/uL Hgb 13.2 (12.0-16.0) g/dL Hct 40.0 (36-46) % MCV 89.8 (80-100) fL MCH 29.7 (26-34) PG MCHC 33.1 (30-36) % RDW 13.3 (11.6-14.8) % Plt Count 245 (150-400) X10^3/uL Neut % (Auto) 48.2 L (50-75) % Lymph % (Auto) 38.7 (25-40) % [place] % (Auto) 9.6 (3-14) % Eos % (Auto) 3.2 (2-4) % Baso % (Auto) 0.3 (0-2) % Neut # (Auto) 3300 (7080-8658) /uL Lymph # (Auto) 2700 (8409-6386) /uL [place] # (Auto) 700 (0-900) /uL Eos # (Auto) 200 (0-450) /uL Baso # (Auto) 0 (0-100) /uL Sodium 138 (137-145) mmol/L Potassium 4.1 (3.4-5.1) mmol/L Chloride 104 (98-107) mmol/L Carbon Dioxide 27 (22-32) mmol/L BUN 15 (7-17) mg/dL Creatinine 0.73 (0.52-1.04) mg/dL Estimated GFR > 60 (>60) mL/min BUN/Creatinine Ratio 20.5 (6-22) Glucose 87 (80-110) mg/dL Lactate 1.2 (0.7-2.1) mmol/L Calcium 9.0 (8.4-10.2) mg/dL Total Bilirubin 0.4 (0.2-1.3) mg/dL AST 36 (14-36) IU/L ALT 32 (<35) IU/L Alkaline Phosphatase 93 (38-126) U/L Total Protein 8.2 (6.3-8.2) g/dL Albumin 4.3 (3.5-5.0) g/dL Globulin 3.9 (1.7-4.1) g/dL Albumin/Globulin Ratio 1.1 (1.0-2.8) Lipase 41 (23-300) U/L Point of care testing: Urine Dip Bedside Urine Glucose Negative Bedside Urine Bilirubin - Negative Bedside Urine Ketone - Negative Urine Specific [place] 1.010 Bedside Urine Occult Blood - Negative Bedside Urine pH 6.0 Bedside Urine Protein - Negative Bedside Urine Urobilinogen - Negative Bedside Urine Nitrite - Negative Bedside Urine Leukocytes - Negative Esterase Imaging Data CT scan - abdomen/pelvis: Radiologist's Impression: ADDENDUMThis report includes an Addendum and supersedes previous reports for this exam. ? ? ? PROCEDURE:? CT ABDOMEN PELVIS W CON ? INDICATIONS:? Abdominal pain ? TECHNIQUE:? After the administration of oral and IV contrast, axial sections were acquired from the lung bases to the pubic symphysis.? Coronal and sagittal reformats were performed.? For radiation dose reduction, the following was used:? automated exposure control, adjustment of mA and/or kV according to patient size. ? COMPARISON:? None. ? FINDINGS:? Image quality:? Excellent.? ? Lung bases:? Unremarkable.? Small hiatal hernia. ? Heart:? No significant findings. ? ? ABDOMEN: Liver:? Normal in size.? Mild hepatic steatosis.? There are multiple low-density nodules in liver, most likely hepatic cysts.? ? Gallbladder:? There are multiple gallstones.? No gallbladder wall thickening or pericholecystic fluid collection? ? Biliary ducts:? Unremarkable.? ? Pancreas:? Unremarkable.? ? Spleen:? Unremarkable.? ? Adrenal Glands:? Unremarkable.? ? Kidneys and Ureters:? Unremarkable.? ? ? Stomach and Bowel:? Stomach, small bowel loops, and colon are normal in caliber.? There are numerous colonic diverticula.? There is focal thickening and pericolonic stranding in the distal descending colon/proximal sigmoid colon, consistent with acute diverticulitis. Peritoneum:? No abnormal intraperitoneal fluid.? No free air.? ? Ventral Wall: ? No hernia.? Abdominal Nodes:? No retroperitoneal or mesenteric adenopathy by size criteria.? Vessels:? Aorta and inferior vena cava are normal in size.? ? PELVIS: Pelvic Organs:? Unremarkable.? ? Bladder:? Unremarkable.? ? Pelvic Nodes: No enlarged lymph nodes.? Miscellaneous: No inguinal hernias are seen. ? ? ? Bones:? Moderate to severe degenerative changes in lumbar spine.? IMPRESSION:? ? 1. Acute diverticulitis of the distal descending colon/proximal sigmoid colon. ? 2. Cholelithiasis.? No CT findings to suggest acute cholecystitis.? ? 3. Mild hepatic steatosis.? There are multiple hepatic cysts.? ? ? Dictated by: Radha Ervin M.D. on 08/19/2022 at 20:34 ? ? Approved by: Radha Ervin M.D. on 08/19/2022 at 20:38 ? ? ? ADDENDUM: ? The result was discussed with Dr. Simon. ? Dictated by: Radha Ervin M.D. on 08/19/2022 at 21:02 ? ? Approved by: Radha Ervin M.D. on 08/19/2022 at 21:03 ? Addendum Dictated By: Radha Ervin MD Addendum Signed By: Addendum Cosigned By: DD/ TD/TT: 08/19/22 PROCEDURE:? CT ABDOMEN PELVIS W CON ? INDICATIONS:? Abdominal pain ? TECHNIQUE:? After the administration of oral and IV contrast, axial sections were acquired from the lung bases to the pubic symphysis.? Coronal and sagittal reformats were performed.? For radiation dose reduction, the following was used:? automated exposure control, adjustment of mA and/or kV according to patient size. ? COMPARISON:? None. ? FINDINGS:? Image quality:? Excellent.? ? Lung bases:? Unremarkable.? Small hiatal hernia. ? Heart:? No significant findings. ? ? ABDOMEN: Liver:? Normal in size.? Mild hepatic steatosis.? There are multiple low-density nodules in liver, most likely hepatic cysts.? ? Gallbladder:? There are multiple gallstones.? No gallbladder wall thickening or pericholecystic fluid collection? ? Biliary ducts:? Unremarkable.? ? Pancreas:? Unremarkable.? ? Spleen:? Unremarkable.? ? Adrenal Glands:? Unremarkable.? ? Kidneys and Ureters:? Unremarkable.? ? ? Stomach and Bowel:? Stomach, small bowel loops, and colon are normal in caliber.? There are numerous colonic diverticula.? There is focal thickening and pericolonic stranding in the distal descending colon/proximal sigmoid colon, consistent with acute diverticulitis. Peritoneum:? No abnormal intraperitoneal fluid.? No free air.? ? Ventral Wall: ? No hernia.? Abdominal Nodes:? No retroperitoneal or mesenteric adenopathy by size criteria.? Vessels:? Aorta and inferior vena cava are normal in size.? ? PELVIS: Pelvic Organs:? Unremarkable.? ? Bladder:? Unremarkable.? ? Pelvic Nodes: No enlarged lymph nodes.? Miscellaneous: No inguinal hernias are seen. ? ? ? Bones:? Moderate to severe degenerative changes in lumbar spine.? IMPRESSION:? ? 1. Acute diverticulitis of the distal descending colon/proximal sigmoid colon. ? 2. Cholelithiasis.? No CT findings to suggest acute cholecystitis.? ? 3. Mild hepatic steatosis.? There are multiple hepatic cysts.? ? ? Dictated by: Radha Ervin M.D. on 08/19/2022 at 20:34 ? ? ECG Data Interpretation: [place]-sinus rhythm rate 84 NC interval 160 QRS [address] changes no priors to compare MDM Narrative Medical decision making narrative: 77-year-old female with past medical history breast cancer, hypertension, hyperlipidemia presentsTo the ED with 4 days of lower abdominal pain. Concern for appendicitis versus diverticulitis versus UTI versus pyelonephritis versus gastroenteritis versus maligancy other intra-abdominal etiology. Will obtain labs, UA, CT abdomen pelvis. Patient declines pain medication at this time stating that her pain is mild. Will reassess. Patient is signed out to Dr. Erika Simon at this time. 20:33 patient signed out to me by JERRY Alvarado I have seen evaluated patient. She is standing getting dressed. She would like to leave her CT scan is not back. I have explained to her that I can not rule out anything emergent that she will be leaving against medical advice. I will only call her if there is something emergent that she needs to turn around 4. Otherwise she can follow-up. The patient is clinically sober, free from distracting injury, appears to have intact insight, judgment and reason. Does not meet criteria for involuntary hospitalization. Patient has the capacity to make decisions. The patient is also not under any duress to leave the hospital. In this scenario, it would be battery to subject the patient to treatment against his/her will. I have voiced my concerns for the patient's health given that a full evaluation and treatment had not occurred. I have discussed the need for continued evaluation to determine if there symptoms are caused by a condition that present risk of or morbidity. Risk including but not limited to , permanent disability, prolonged hospitalization, prolonged illness, were discussed. I tried offering alternative options in hopes that the patient might be amenable to partial evaluation and treatment which would be medically beneficial to the patient, though the patient declined my options and insisted on leaving. Because I have been unable to convince the patient to stay I answered all of their questions about the condition and ask them to return to the ED as soon as possible to complete their evaluation, especially if their symptoms worsen or do not improve. I emphasized that leaving against medical advice did not preclude returning here for further evaluation. I asked the patient to return if they change their mind about the further evaluation and treatment. I strongly encouraged the patient to return to this emergency department or any emergency department at any time, particularly with worsening symptoms. Patient CT reports diverticulitis without complication. I have called until patient this I have also called in prescriptions antibiotics. Discharge Plan Departure Patient Disposition: Left Against Medical Advice Clinical Impression: Abdominal pain Activity Restrictions/Additional Instructions: He were leaving against medical advice your CT scan is not back. Only if there is no emergency will call you with your results. Please follow-up with your doctor Please return to the emergency department any time if you are having worsening pain persistent vomiting or other symptoms Prescriptions: New ciprofloxacin HCl [Cipro] 500 mg tablet 500 mg PO BID Qty: 20 0RF metronidazole 500 mg tablet 500 mg PO Q8H Qty: 30 0RF No Action pravastatin 40 mg tablet 40 mg PO Q EVENING Qty: 90 3RF triamcinolone acetonide 0.1 % cream 1 applic topical DAILY Qty: 30 1RF Hold Instructions: Prescribed by Packing Floor Worker. Just reported here ibuprofen 400 mg tablet 400 mg PO Q6H PRN (Reason: pain) Rx Instructions: TAKE 1 TABLET BY MOUTH EVERY 6 HOURS NEEDED FOR PAIN. STOP TAKING IF EXPERIENCING STOMACH PAIN OR GI UPSET. multivitamin [Multiple Vitamins] Tablet 1 tab PO DAILY anastrozole 1 mg tablet 1 mg PO DAILY calcium carbonate 500 mg calcium (1,250 mg) tablet 500 mg PO BID Stand Alone Forms: Patient Portal/API, Against Medical Advice <Erika Simon DO - Last Filed: 08/20/22 02:12> Cosign ED Attending Coshonorioature Attestation: I was immediately available in the department for consultation. Documentation has been reviewed.
[2022-08-19 18:46] LABS: Add Manual Diff / Slide Review NO; Basophils Absolute Auto 0 /uL (0-100); Basophils Percent Auto 0.3 % (0-2); Eosinophils Absolute Auto 200 /uL (0-450); Eosinophils Percent Auto 3.2 % (2-4); Hemoglobin 13.2 g/dL (12.0-16.0); Lymphocytes Absolute Auto 2700 /uL (1100-4500); Lymphocytes Percent Auto 38.7 % (25-40); Mean Corpuscular HGB Conc 33.1 % (30-36); Mean Corpuscular Hemoglobin 29.7 PG (26-34); Mean Corpuscular Volume 89.8 fL (80-100); Monocytes Absolute Auto 700 /uL (0-900); Monocytes Percent Auto 9.6 % (3-14); Neutrophils Absolute Auto 3300 /uL (1500-7000); Neutrophils Percent Auto 48.2 % (50-75); Platelet Count 245 X10^3/uL (150-400); Red Blood Cell Count 4.46 X10^6/uL (4.0-5.2); Red Cell Distribution Width 13.3 % (11.6-14.8); White Blood Cell Count 6.9 X10^3/uL (4.5-11.0)
[2022-08-19 18:52] LABS: Lactate (Lactic Acid) 1.2 mmol/L (0.7-2.1)
[2022-08-19 18:54] LABS: Alanine Aminotransferase 32 IU/L (<35); Albumin 4.3 g/dL (3.5-5.0); Albumin Globulin Ratio 1.1 (1.0-2.8); Alkaline Phosphatase 93 U/L (38-126); Aspartate Aminotransferase 36 IU/L (14-36); BUN Creatinine Ratio 20.5 (6-22); Bilirubin Total 0.4 mg/dL (0.2-1.3); Blood Urea Nitrogen 15 mg/dL (7-17); Carbon Dioxide 27 mmol/L (22-32); Chloride 104 mmol/L (98-107); Estimated Glomerular Filt Rate > 60 mL/min (>60); Globulin 3.9 g/dL (1.7-4.1); Glucose 87 mg/dL (80-110); HEMOLYSIS 35 (0-50); Lipase 41 U/L (23-300); Potassium 4.1 mmol/L (3.4-5.1); Sodium 138 mmol/L (137-145); Total Protein 8.2 g/dL (6.3-8.2)
== END 2022-08-19 20:39 | disposition left against medical advice (07) ==
PROVIDERS: Student in an Organized Health Care Education/Training Program; Emergency Provider Emergency Medicine; PCP Family Medicine
DX: R10.9 Unspecified abdominal pain (principal)
CPT/HCPCS: 36415; 74177; 80053; 81003; 83605; 83690; 85025; 93005; 93010; 99284; Q9967

== ENCOUNTER → 2022-10-24 11:04 | Outpatient (CLI) | payer MEDICARE, OTHER, SELFPAY ==
[2022-10-24 19:35] LABS: Alanine Aminotransferase 33 IU/L (<35); Albumin 4.3 g/dL (3.5-5.0); Albumin Globulin Ratio 1.4 (1.0-2.8); Alkaline Phosphatase 88 U/L (38-126); Aspartate Aminotransferase 35 IU/L (14-36); Bilirubin Total 0.6 mg/dL (0.2-1.3); Bilirubin Unconjugated 0.3 mg/dL (0.0-1.1); Blood Urea Nitrogen 18 mg/dL (7-17); Calcium 9.5 mg/dL (8.4-10.2); Carbon Dioxide 26 mmol/L (22-32); Chloride 104 mmol/L (98-107); Cholesterol 201 mg/dL (140-199); Estimated Glomerular Filt Rate > 60 mL/min (>60); Globulin 3.1 g/dL (1.7-4.1); Glucose 97 mg/dL (80-110); HDL Cholesterol 50 mg/dL (40-60); HEMOLYSIS < 15 (0-50); LDL Cholesterol Calculated 117 mg/dL (<100); Potassium 4.4 mmol/L (3.4-5.1); Sodium 138 mmol/L (137-145); Total Protein 7.4 g/dL (6.3-8.2); Triglycerides 172 mg/dL (35-150)
[2022-10-24 19:44] LABS: Add Manual Diff / Slide Review NO; Basophils Absolute Auto 100 /uL (0-100); Basophils Percent Auto 1.3 % (0-2); Eosinophils Absolute Auto 200 /uL (0-450); Eosinophils Percent Auto 3.1 % (2-4); Hematocrit 41.2 % (36-46); Hemoglobin 13.9 g/dL (12.0-16.0); Lymphocytes Absolute Auto 1900 /uL (1100-4500); Lymphocytes Percent Auto 34.5 % (25-40); Mean Corpuscular HGB Conc 33.7 % (30-36); Mean Corpuscular Volume 88.9 fL (80-100); Monocytes Absolute Auto 800 /uL (0-900); Monocytes Percent Auto 14.3 % (3-14); Neutrophils Absolute Auto 2500 /uL (1500-7000); Neutrophils Percent Auto 46.8 % (50-75); Platelet Count 214 X10^3/uL (150-400); Red Blood Cell Count 4.64 X10^6/uL (4.0-5.2); Red Cell Distribution Width 13.9 % (11.6-14.8); White Blood Cell Count 5.4 X10^3/uL (4.5-11.0)
== END ==
PROVIDERS: PCP Family Medicine; Visit Provider Family Medicine
DX: Z29.8 Encounter for other specified prophylactic measures (principal); I10 Essential (primary) hypertension; Z87.19 Personal history of other diseases of the digestive system; R60.0 Localized edema; E78.49 Other hyperlipidemia
CPT/HCPCS: 80048; 80061; 80076; 85025

== ENCOUNTER → 2022-12-11 16:21 | Outpatient (CLI) | payer MEDICARE, OTHER, SELFPAY | PROVIDERS: PCP Family Medicine; Visit Provider Physician Assistant Medical | DX: R53.83 Other fatigue (principal) | CPT/HCPCS: 87077; 87086; 87186 ==

== ENCOUNTER 2022-12-18 13:25 | Inpatient (IN) | payer MEDICARE, OTHER, SELFPAY ==
[2022-12-18] VITALS (69 sets, daily range): BP systolic 116–182; BP diastolic 60–95; PULSE 80–105; RESP 11–54; TEMP 36.2–37.7; O2SAT 87–98; BMI 25.2
--- NOTE | 2022-12-18 13:37 | ED_ITS ---
HPI - Sepsis General Chief Complaint: Fever Mode of arrival: other (flight) Source: patient, EMS, RN notes reviewed and old records reviewed Limitations: no limitations Evaluation Narrative: This is a 77-year-old female history of dyslipidemia, prior breast cancer with lumpectomy on anastrozole and pravastatin daily. Patient presents with complaint of upper respiratory infection which has moved down into her lungs patient presented to the [facility] febrile at 1:01 a.m. F she states she is had fevers since last Friday been taking Tylenol and ibuprofen for them regularly, shortness of breath which has been increasing over time, wet cough which has become productive with yellow productive sputum. No hemoptysis. Patient denies any chest pain or pressure. No syncope. She denies nausea or vomiting, no abdominal back or flank pain. No dysuria, urgency or frequency. No diarrhea constipation. No new swelling in her extremities patient initially was diagnosed with a URI and UTI and was treated with ciprofloxacin for 1 week. Patient did not have any improvement. Patient states she is had a lumpectomy in the past couple years, she is had prior . Allergic to sulfa and muscles. She received a [place] EN route with [facility], they had her on 5-6 L and was still 90% so was bumped up to non-rebreather. Patient states that these treatments were helpful. She feels more comfortable. She also had Tylenol prior to leaving the [place]. No tobacco, alcohol or illicit. She lives on [facility]. She saw Anju falk today initially was reluctant to transfer to our facility but was convinced by EMS crew. Review of Systems Review of Systems ROS Unobtainable: All systems reviewed & are unremarkable except as noted in HPI and below Patient History Medical History Other hyperlipidemia (07/11/15) Social History household members: spouse Smoking Status: Never smoker Smoking Status: Never smoker alcohol intake frequency: holidays/special occasions only Substance Use Type: does not use Exam Narrative Exam Narrative: GEN: well nourished, well appearing female, alert and oriented x 3, patient appears to be in mild distress. HEENT: Atraumatic, pupils are equal round reactive to light, extraocular movements are intact, nares are clear, there is no conjunctival pallor. HEART: Regular rate and rhythm without murmur, clicks, rubs. Pulses are equal in upper and lower extremities LUNGS:Lungs rhonchorous bilaterally, no wheezes, rales, crackles, chest moves symmetry, mild tachypnea. Patient's speaks in full sentences. She has a wet harsh cough. ABD:bowel sounds normal, soft, non-tender, no guarding, rebound, rigidity, no masses noted, no hepatosplenomegaly :No CVA tenderness. MSCL: Non-tender, no muscle atrophy, muscles strength 5/5 upper and lower extremities, full range of motion. Normal gait. NEURO:CN 2-12 intact, sensation normal. SKIN: No rash, erythema or other skin changes. Initial Vital Signs Initial Vital Signs: Vital Signs Temperature 99.9 F H 12/18/22 13:25 Pulse Rate 100 H 12/18/22 13:25 Respiratory Rate 34 H 12/18/22 13:25 Blood Pressure 148/65 H 12/18/22 13:25 Pulse Oximetry 90 L 12/18/22 13:25 Oxygen Delivery Method Non -Rebreather 12/18/22 13:25 Course Orders Ordered: ED Orders 12/18/22 13:30 Complete Blood Count AUTO DIFF Stat Comprehensive Metabolic Panel Stat D Dimer Stat Lactate (Lactic Acid) Stat NT-proBNP (BNP-Adult 18+) Stat PTT Partial Thromboplastin Thor Stat Procalcitonin Stat Prothrombin Time INR Stat Respiratory Panel (Film Array) Stat Troponin & CK Cardiac Panel Stat 12/18/22 13:34 EKG-12 Lead Stat 12/18/22 13:57 Blood Culture Stat 12/18/22 14:15 High flow/High humidity nasal NOW 12/18/22 14:22 CT angio chest PE protocol Stat 12/18/22 14:30 Sputum Culture Stat 12/18/22 15:01 Urine Microscopic Stat 12/18/22 16:36 Arterial Blood Gas Stat Acetaminophen (Acetaminophen 325 Mg Tablet) 650 mg PO Q4H PRN PRN Reason: Fever/Mild Pain (1-3) Albuterol/Ipratropium (Albuterol/Ipratropium 3 Ml Ampul) 3 ml INH [id number] Last Admin: 12/18/22 19:04 Dose: 3 ml Documented By: ELEANOR Anastrozole (Anastrozole 1 Mg Tablet) 1 mg PO 2100 [facility] Azithromycin (Azithromycin 250 Mg Tablet) 500 mg PO DAILY [facility] Stop: 12/20/22 09:01 Last Admin: 12/18/22 17:40 Dose: 500 mg Documented By: FANNY Benzonatate (Benzonatate 100 Mg Capsule) 100 mg PO TID PRN PRN Reason: Cough Calcium Carbonate (Calcium Carbonate 500 Mg Tab) 500 mg PO BID [facility] Enoxaparin Sodium (Enoxaparin 40 Mg/0.4 Ml Syringe) 40 mg SUBCUT DAILY [facility] Last Admin: 12/18/22 17:41 Dose: 40 mg Documented By: FANNY Famotidine (Famotidine 20 Mg/2 Ml Vial) 20 mg IV BID [facility] Fluticasone Propionate (Fluticasone 120 [place]/16 Gm Celina.Susp) 2 spray NASAL DAILY [facility] Guaifenesin (Guaifenesin Er 600 Mg Tab) 600 mg PO BID [facility] Last Admin: 12/18/22 17:40 Dose: 600 mg Documented By: FANNY Ceftriaxone Sodium 2,000 mg/ (Sodium Chloride) 100 mls @ 200 mls/hr IV Q24H ERASMO Stop: 12/22/22 18:14 Last Infusion: 12/18/22 19:29 Dose: 0 mls/hr Documented By: Admin: 12/18/22 17:44 Dose: 200 mls/hr Documented By: FANNY Ibuprofen (Ibuprofen 400 Mg Tablet) 400 mg PO Q6H PRN PRN Reason: pain Melatonin (Melatonin 3 Mg Tablet) 6 mg PO BEDTIME PRN PRN Reason: Insomnia Naloxone HCl (Naloxone 0.4 Mg/Ml Vial) 0.2 mg IV Q2MIN PRN PRN Reason: Opiate Reversal Polyethylene Glycol (Polyethylene Glycol 3350 17 Gm Powd.Pack) 17 gm PO DAILY PRN PRN Reason: Constipation Pravastatin Sodium (Pravastatin 20 Mg Tablet) 40 mg PO BEDTIME [facility] Sennosides (Sennosides 8.6 Mg Tablet) 8.6 mg PO BID PRN PRN Reason: Constipation Discontinued Medications Anastrozole (Anastrozole 1 Mg Tablet) 1 mg PO DAILY [facility] Piperacillin Sod/Tazobactam (Sod 4.5 gm/ Sodium Chloride) 100 mls @ 200 mls/hr IV NOW ONE Stop: 12/18/22 13:38 Last Infusion: 12/18/22 15:04 Dose: 0 mls/hr Documented By: Admin: 12/18/22 13:49 Dose: 200 mls/hr Documented By: WOLFGANG Sodium Chloride (Normal Saline 0.9%) 1,000 mls @ 1,000 mls/hr IV BOLUS ONE Stop: 12/18/22 14:43 Last Infusion: 12/18/22 16:08 Dose: 0 mls/hr Documented By: Admin: 12/18/22 13:49 Dose: 1,000 mls/hr Documented By: WOLFGANG Ceftriaxone Sodium 2,000 mg/ (Sodium Chloride) 100 mls @ 200 mls/hr IV Q24H ERASMO Stop: 12/22/22 16:46 Last Admin: 12/18/22 18:12 Dose: Not Given Documented By: ERIC Methylprednisolone (Methylprednisolone 125 Mg/2 Ml Vial) 125 mg IV NOW ONE Stop: 12/18/22 13:45 Last Admin: 12/18/22 13:49 Dose: 125 mg Documented By: WOLFGANG Vital Signs Vital signs: Vital Signs - 8 hr 12/18/22 13:25 12/18/22 13:45 12/18/22 13:50 Temperature 99.9 F H Pulse Rate 100 H 93 H 89 Respiratory Rate 34 H 30 H 33 H Blood Pressure 148/65 H Pulse Oximetry 90 L 87 L 91 Oxygen Delivery Method Non -Rebreather Nasal Cannula Nasal Cannula Oxygen Flow Rate 5 6 12/18/22 13:55 12/18/22 14:00 12/18/22 14:00 Temperature Pulse Rate 86 88 Respiratory Rate 26 H 24 Blood Pressure 142/65 H Pulse Oximetry 91 92 Oxygen Delivery Method Oxygen Flow Rate 12/18/22 14:04 12/18/22 14:04 12/18/22 14:05 Temperature Pulse Rate 90 Respiratory Rate 31 H Blood Pressure 144/65 H 156/72 H Pulse Oximetry 92 Oxygen Delivery Method Oxygen Flow Rate 12/18/22 14:05 12/18/22 14:10 12/18/22 14:11 Temperature Pulse Rate 92 H 91 H Respiratory Rate 28 H 35 H Blood Pressure 153/64 H Pulse Oximetry 93 93 Oxygen Delivery Method Oxygen Flow Rate 12/18/22 14:11 12/18/22 14:20 12/18/22 14:15 Temperature Pulse Rate 96 H 96 H Respiratory Rate 41 H 16 Blood Pressure 153/64 H 143/72 H Pulse Oximetry 92 Oxygen Delivery Method Oxygen Flow Rate 12/18/22 14:15 12/18/22 14:20 12/18/22 14:20 Temperature Pulse Rate 90 88 Respiratory Rate 33 H 28 H Blood Pressure 146/67 H Pulse Oximetry 91 Oxygen Delivery Method High Flow Nasal Cannula Oxygen Flow Rate 12/18/22 14:25 12/18/22 14:26 12/18/22 14:26 Temperature Pulse Rate 99 H 93 H Respiratory Rate 42 H 32 H Blood Pressure 116/63 Pulse Oximetry 94 93 Oxygen Delivery Method Oxygen Flow Rate 12/18/22 14:30 12/18/22 14:30 12/18/22 14:35 Temperature Pulse Rate 92 H 92 H Respiratory Rate 33 H 29 H Blood Pressure 126/65 Pulse Oximetry 93 Oxygen Delivery Method Oxygen Flow Rate 12/18/22 14:50 12/18/22 14:55 12/18/22 15:00 Temperature Pulse Rate 98 H 105 H 96 H Respiratory Rate 41 H 34 H 33 H Blood Pressure Pulse Oximetry 90 L Oxygen Delivery Method Oxygen Flow Rate 12/18/22 15:02 12/18/22 15:02 12/18/22 15:05 Temperature Pulse Rate 95 H Respiratory Rate 29 H Blood Pressure 182/76 H 170/74 H Pulse Oximetry 90 L Oxygen Delivery Method Oxygen Flow Rate 12/18/22 15:05 12/18/22 15:10 12/18/22 15:11 Temperature Pulse Rate 96 H 92 H 93 H Respiratory Rate 22 24 24 Blood Pressure Pulse Oximetry 90 L 90 L 90 L Oxygen Delivery Method Oxygen Flow Rate 12/18/22 15:11 12/18/22 15:15 12/18/22 15:15 Temperature Pulse Rate 91 H Respiratory Rate 21 Blood Pressure 165/76 H 147/68 H Pulse Oximetry 90 L Oxygen Delivery Method Oxygen Flow Rate 12/18/22 15:20 12/18/22 15:20 12/18/22 15:25 Temperature Pulse Rate 91 H Respiratory Rate 17 Blood Pressure 148/68 H 136/69 Pulse Oximetry 90 L Oxygen Delivery Method Oxygen Flow Rate 12/18/22 15:25 12/18/22 15:30 12/18/22 15:30 Temperature Pulse Rate 92 H 92 H Respiratory Rate 22 28 H Blood Pressure 146/64 H Pulse Oximetry 90 L 90 L Oxygen Delivery Method Oxygen Flow Rate 12/18/22 15:35 12/18/22 15:35 12/18/22 15:40 Temperature Pulse Rate 93 H Respiratory Rate 25 H Blood Pressure 151/65 H 155/70 H Pulse Oximetry 90 L Oxygen Delivery Method Oxygen Flow Rate 12/18/22 15:40 12/18/22 15:45 12/18/22 15:46 Temperature Pulse Rate 93 H 95 H Respiratory Rate 17 37 H Blood Pressure 153/69 H Pulse Oximetry 89 L 90 L Oxygen Delivery Method Oxygen Flow Rate 12/18/22 15:46 12/18/22 15:50 12/18/22 15:50 Temperature Pulse Rate 91 H 92 H Respiratory Rate 33 H 33 H Blood Pressure 151/60 H Pulse Oximetry 91 90 L Oxygen Delivery Method Oxygen Flow Rate 12/18/22 15:55 12/18/22 15:55 12/18/22 16:00 Temperature Pulse Rate 88 Respiratory Rate 30 H Blood Pressure 143/63 H 138/65 Pulse Oximetry 89 L Oxygen Delivery Method Oxygen Flow Rate 12/18/22 16:00 12/18/22 16:05 12/18/22 16:05 Temperature Pulse Rate 87 90 Respiratory Rate 29 H 25 H Blood Pressure 140/66 Pulse Oximetry 89 L 89 L Oxygen Delivery Method Oxygen Flow Rate 12/18/22 16:10 12/18/22 16:10 12/18/22 16:15 Temperature Pulse Rate 91 H Respiratory Rate 24 Blood Pressure 141/70 H 152/77 H Pulse Oximetry 91 Oxygen Delivery Method Oxygen Flow Rate 12/18/22 16:15 12/18/22 16:20 12/18/22 16:20 Temperature Pulse Rate 89 90 Respiratory Rate 28 H 20 Blood Pressure 158/70 H Pulse Oximetry 90 L 89 L Oxygen Delivery Method Oxygen Flow Rate 12/18/22 16:25 12/18/22 16:25 12/18/22 16:30 Temperature Pulse Rate 88 86 Respiratory Rate 26 H 20 Blood Pressure 136/65 Pulse Oximetry 90 L 94 Oxygen Delivery Method Oxygen Flow Rate 37 12/18/22 16:35 Temperature Pulse Rate 84 Respiratory Rate 16 Blood Pressure Pulse Oximetry 93 Oxygen Delivery Method High Flow Nasal Cannula Oxygen Flow Rate 40 Sepsis Evaluation (ED) Response It is my opinion that his patient have a likely infectious etiology for meeting sepsis criteria: Does Fluid calculation based on 30 mL/kg within 1hr of criteria: Other (patient has potential for fluid overload initial 30cc/kg bolus held.) Antibiotics initiated within 1 hr of Sepis dx: Yes Tissue Perfusion Reassessed within 6 hrs of infusion start time: No (lactate negative, vitals improved. ) MDM - Sepsis Lab Data 12/18/22 13:30 12/18/22 13:30 Labs: Lab Results 12/18/22 12/18/22 12/18/22 Range/Units 13:30 13:30 13:30 WBC 7.8 (4.5-11.0) X10^3/uL RBC 4.52 (4.0-5.2) X10^6/uL Hgb 13.4 (12.0-16.0) g/dL Hct 39.2 (36-46) % MCV 86.8 (80-100) fL MCH 29.6 (26-34) PG MCHC 34.1 (30-36) % RDW 13.8 (11.6-14.8) % Plt Count 268 (150-400) X10^3/uL Neut % (Auto) 73.5 (50-75) % Lymph % (Auto) 12.7 L (25-40) % [place] % (Auto) 11.8 (3-14) % Eos % (Auto) 1.2 L (2-4) % Baso % (Auto) 0.8 (0-2) % Neut # (Auto) 5700 (6999-2646) /uL Lymph # (Auto) 1000 L (7231-6088) /uL [place] # (Auto) 900 (0-900) /uL Eos # (Auto) 100 (0-450) /uL Baso # (Auto) 100 (0-100) /uL PT 14.2 H (10.1-12.7) SECONDS INR 1.2 (0.9-1.3) APTT (26-36) SECONDS D-Dimer 2675 H (<500) ng/ml ABG pH (7.35-7.45) ABG pCO2 (35-45) mmHg ABG pO2 (80-100) mmHg ABG HCO3 (23-27) mmol/L ABG Total CO2 (23-27) mmol/L ABG O2 Saturation (95-100) % ABG Base Excess (-2-3) mmol/L FiO2 Sodium 134 L (137-145) mmol/L Potassium 3.9 (3.4-5.1) mmol/L Chloride 100 (98-107) mmol/L Carbon Dioxide 26 (22-32) mmol/L BUN 14 (7-17) mg/dL Creatinine 0.75 (0.52-1.04) mg/dL Estimated GFR > 60 (>60) mL/min BUN/Creatinine Ratio 18.7 (6-22) Glucose 123 H (80-110) mg/dL Lactate (0.7-2.1) mmol/L Calcium 8.6 (8.4-10.2) mg/dL Magnesium (1.6-2.3) mg/dL Total Bilirubin 0.5 (0.2-1.3) mg/dL AST 41 H (14-36) IU/L ALT 46 H (<35) IU/L Alkaline Phosphatase 96 (38-126) U/L Total Creatine Kinase 154 H (30-135) U/L Troponin I < 0.012 (0.01-0.034) ng/mL NT-Pro-B Natriuret Pep 192 (<450) pg/mL Total Protein 7.6 (6.3-8.2) g/dL Albumin 3.9 (3.5-5.0) g/dL Globulin 3.7 (1.7-4.1) g/dL Albumin/Globulin Ratio 1.1 (1.0-2.8) Procalcitonin 0.14 (<0.5) ng/mL Urine RBC (0-5/HPF) Urine WBC (0-5/HPF) Ur Squamous Epith Cells (0-5/HPF) Urine Bacteria (None) Chlamy pneumoniae PCR (Not Detect) Adenovirus (PCR) (Not Detect) B. pertussis DNA (PCR) (Not Detecte) B.parapertussis DNA PCR (Not Detecte) Coronavirus OC43 (PCR) (Not Detect) Coronavirus HKU1 (PCR) (Not Detect) Coronavirus 229E (PCR) (Not Detect) SARS-CoV-2 (PCR) (Not Detecte) Coronavirus NL63 (PCR) (Not Detect) Human Metapneumovir PCR (Not Detect) Influenza Type A (PCR) (Not Detect) Influenza Type B (PCR) (Not Detect) M. pneumoniae (PCR) (Not Detect) Parainfluenza 1 (PCR) (Not Detect) Parainfluenza 2 (PCR) (Not Detect) Parainfluenza 3 (PCR) (Not Detect) Parainfluenza 4 (PCR) (Not Detect) RSV (PCR) (Not Detect) Entero/Rhino (PCR) (Not Detect) 12/18/22 12/18/22 12/18/22 Range/Units 13:30 13:30 13:30 WBC (4.5-11.0) X10^3/uL RBC (4.0-5.2) X10^6/uL Hgb (12.0-16.0) g/dL Hct (36-46) % MCV (80-100) fL MCH (26-34) PG MCHC (30-36) % RDW (11.6-14.8) % Plt Count (150-400) X10^3/uL Neut % (Auto) (50-75) % Lymph % (Auto) (25-40) % [place] % (Auto) (3-14) % Eos % (Auto) (2-4) % Baso % (Auto) (0-2) % Neut # (Auto) (3894-4687) /uL Lymph # (Auto) (0002-3920) /uL [place] # (Auto) (0-900) /uL Eos # (Auto) (0-450) /uL Baso # (Auto) (0-100) /uL PT (10.1-12.7) SECONDS INR (0.9-1.3) APTT 30 (26-36) SECONDS D-Dimer (<500) ng/ml ABG pH (7.35-7.45) ABG pCO2 (35-45) mmHg ABG pO2 (80-100) mmHg ABG HCO3 (23-27) mmol/L ABG Total CO2 (23-27) mmol/L ABG O2 Saturation (95-100) % ABG Base Excess (-2-3) mmol/L FiO2 Sodium (137-145) mmol/L Potassium (3.4-5.1) mmol/L Chloride (98-107) mmol/L Carbon Dioxide (22-32) mmol/L BUN (7-17) mg/dL Creatinine (0.52-1.04) mg/dL Estimated GFR (>60) mL/min BUN/Creatinine Ratio (6-22) Glucose (80-110) mg/dL Lactate 1.1 (0.7-2.1) mmol/L Calcium (8.4-10.2) mg/dL Magnesium (1.6-2.3) mg/dL Total Bilirubin (0.2-1.3) mg/dL AST (14-36) IU/L ALT (<35) IU/L Alkaline Phosphatase (38-126) U/L Total Creatine Kinase (30-135) U/L Troponin I (0.01-0.034) ng/mL NT-Pro-B Natriuret Pep (<450) pg/mL Total Protein (6.3-8.2) g/dL Albumin (3.5-5.0) g/dL Globulin (1.7-4.1) g/dL Albumin/Globulin Ratio (1.0-2.8) Procalcitonin (<0.5) ng/mL Urine RBC (0-5/HPF) Urine WBC (0-5/HPF) Ur Squamous Epith Cells (0-5/HPF) Urine Bacteria (None) Chlamy pneumoniae PCR Not detected (Not Detect) Adenovirus (PCR) Not detected (Not Detect) B. pertussis DNA (PCR) Not detected (Not Detecte) B.parapertussis DNA PCR Not detected (Not Detecte) Coronavirus OC43 (PCR) Not detected (Not Detect) Coronavirus HKU1 (PCR) Not detected (Not Detect) Coronavirus 229E (PCR) Not detected (Not Detect) SARS-CoV-2 (PCR) Not detected (Not Detecte) Coronavirus NL63 (PCR) Not detected (Not Detect) Human Metapneumovir PCR Not detected (Not Detect) Influenza Type A (PCR) Not detected (Not Detect) Influenza Type B (PCR) Not detected (Not Detect) M. pneumoniae (PCR) Not detected (Not Detect) Parainfluenza 1 (PCR) Not detected (Not Detect) Parainfluenza 2 (PCR) Not detected (Not Detect) Parainfluenza 3 (PCR) Not detected (Not Detect) Parainfluenza 4 (PCR) Not detected (Not Detect) RSV (PCR) Not detected (Not Detect) Entero/Rhino (PCR) Not detected (Not Detect) 12/18/22 12/18/22 12/18/22 Range/Units 13:30 15:01 16:36 WBC (4.5-11.0) X10^3/uL RBC (4.0-5.2) X10^6/uL Hgb (12.0-16.0) g/dL Hct (36-46) % MCV (80-100) fL MCH (26-34) PG MCHC (30-36) % RDW (11.6-14.8) % Plt Count (150-400) X10^3/uL Neut % (Auto) (50-75) % Lymph % (Auto) (25-40) % [place] % (Auto) (3-14) % Eos % (Auto) (2-4) % Baso % (Auto) (0-2) % Neut # (Auto) (5522-2948) /uL Lymph # (Auto) (6494-3912) /uL [place] # (Auto) (0-900) /uL Eos # (Auto) (0-450) /uL Baso # (Auto) (0-100) /uL PT (10.1-12.7) SECONDS INR (0.9-1.3) APTT (26-36) SECONDS D-Dimer (<500) ng/ml ABG pH 7.49 H (7.35-7.45) ABG pCO2 30.3 L (35-45) mmHg ABG pO2 72 L (80-100) mmHg ABG HCO3 23 (23-27) mmol/L ABG Total CO2 24 (23-27) mmol/L ABG O2 Saturation 96 (95-100) % ABG Base Excess 0.0 (-2-3) mmol/L FiO2 40 Sodium (137-145) mmol/L Potassium (3.4-5.1) mmol/L Chloride (98-107) mmol/L Carbon Dioxide (22-32) mmol/L BUN (7-17) mg/dL Creatinine (0.52-1.04) mg/dL Estimated GFR (>60) mL/min BUN/Creatinine Ratio (6-22) Glucose (80-110) mg/dL Lactate (0.7-2.1) mmol/L Calcium (8.4-10.2) mg/dL Magnesium 2.5 H (1.6-2.3) mg/dL Total Bilirubin (0.2-1.3) mg/dL AST (14-36) IU/L ALT (<35) IU/L Alkaline Phosphatase (38-126) U/L Total Creatine Kinase (30-135) U/L Troponin I (0.01-0.034) ng/mL NT-Pro-B Natriuret Pep (<450) pg/mL Total Protein (6.3-8.2) g/dL Albumin (3.5-5.0) g/dL Globulin (1.7-4.1) g/dL Albumin/Globulin Ratio (1.0-2.8) Procalcitonin (<0.5) ng/mL Urine RBC 0-1/hpf (0-5/HPF) Urine WBC 0-1/hpf (0-5/HPF) Ur Squamous Epith Cells 0-1 /hpf (0-5/HPF) Urine Bacteria None seen (None) Chlamy pneumoniae PCR (Not Detect) Adenovirus (PCR) (Not Detect) B. pertussis DNA (PCR) (Not Detecte) B.parapertussis DNA PCR (Not Detecte) Coronavirus OC43 (PCR) (Not Detect) Coronavirus HKU1 (PCR) (Not Detect) Coronavirus 229E (PCR) (Not Detect) SARS-CoV-2 (PCR) (Not Detecte) Coronavirus NL63 (PCR) (Not Detect) Human Metapneumovir PCR (Not Detect) Influenza Type A (PCR) (Not Detect) Influenza Type B (PCR) (Not Detect) M. pneumoniae (PCR) (Not Detect) Parainfluenza 1 (PCR) (Not Detect) Parainfluenza 2 (PCR) (Not Detect) Parainfluenza 3 (PCR) (Not Detect) Parainfluenza 4 (PCR) (Not Detect) RSV (PCR) (Not Detect) Entero/Rhino (PCR) (Not Detect) Urine Dip Bedside Urine Glucose Negative Bedside Urine Bilirubin - Negative Bedside Urine Ketone - Negative Urine Specific [place] 1.015 Bedside Urine Occult Blood +/- Bedside Urine pH 6.0 Bedside Urine Protein + 30 Bedside Urine Urobilinogen - Negative Bedside Urine Nitrite - Negative Bedside Urine Leukocytes - Negative Esterase Imaging Data Chest x-ray: Radiologist's Impression: [facility] [place] ,? XRay Report Signed Patient: Elaine Hernandez MR#: [id number] : 1945 Acct:[id number] Age/Sex: 77 / F Date of Service: 12/18/22 Loc: [facility] Accession Number: [id number] ?? Procedure: XR chest 2V Ordering Provider: Shanta Blancas P.A-C PROCEDURE:? XR CHEST 2V ? INDICATIONS:? worsening cough, congestion x 1 week after antibiotics ? TECHNIQUE:? 2 views of the chest were acquired.? ? COMPARISON:? [facility] ([facility]), CR, XR CHEST 2V, 12/11/2022, 16:09. ? FINDINGS:? ? Surgical changes and devices:? None.? ? Lungs and pleura:? Consolidative opacity is present retrocardiac region.? Mild left effusion. ? Mediastinum:? Mediastinal contours are normal.? Heart size is normal.? ? Bones and chest wall:? No suspicious bony abnormalities.? Soft tissues appear unremarkable.? ? IMPRESSION:? Left effusion with retrocardiac opacity suggestive of pneumonia.? Recommend interval follow up after appropriate therapy to document resolution. ? ? Dictated by: Barbara Lackey M.D. on 12/18/2022 at 12:15 ? ? Approved by: Barbara Lackey M.D. on 12/18/2022 at 12:15?? CT scan - chest: Radiologist's Impression: [place] [address] CT Scan Report Signed Patient: Elaine Hernandez MR#: [id number] : 1945 Acct:[id number] Age/Sex: 77 / F Date of Service: 12/18/22 Loc: ED Accession Number: [id number] ?? Procedure: CT angio chest PE protocol Ordering Provider: Anju Jarvis D.O. PROCEDURE:? CT ANGIO CHEST PE PROTOCOL ? INDICATIONS:? pna failed treatment, sob, hypoxica dimer 1999 ? TECHNIQUE:? After the administration of intravenous contrast, 2 mm thick sections acquired from the pulmonary apices to the posterior costophrenic angles.? 3-dimensional maximum intensity projection (MIP) coronal and sagittal reformats were then acquired through the thorax.? For radiation dose reduction, the following was used:? automated exposure control, adjustment of mA and/or kV according to patient size.? ? COMPARISON:? [facility], CT, CT ABDOMEN PELVIS W CON, 08/19/2022, 19:13.? [facility] ([facility]), CR, XR CHEST 2V, 12/18/2022, 11:46. ? FINDINGS:? Image quality:? Excellent.? ? Pulmonary arteries:? Pulmonary arteries are normal in size, and demonstrate no intraluminal filling defects to suggest central pulmonary embolism.? ? Lungs and pleura:? Left lower lobe consolidative opacity is present with trace effusion.? Patchy nodular areas of opacity are present within the lungs most severe in the left upper lobe. ? Mediastinum:? Heart size is normal, without pericardial effusion.? There is a 2.1 x 2.1 cm left hilar node.? Enlarged mediastinal nodes are present, largest being a subcarinal node measuring 1.6 cm in short axis.? Thoracic aorta is normal in caliber and enhancement.? Esophagus is normal in caliber, without hiatal hernia.? ? Bones and chest wall:? No suspicious bony lesions.? Ribs and thoracic spine appear intact throughout.? Thyroid gland is unremarkable.? No axillary or supraclavicular adenopathy.? ? Abdomen:? Gallstones are noted without wall thickening.? Multiple low-attenuati on hepatic foci are present.? The largest foci are consistent with simple cysts.? There foci are too small to definitively characterize.? There overall unchanged.? Visualized upper abdominal solid organs appear normal in the early arterial phase of enhancement.? ? IMPRESSION:? Left lower lobe consolidative opacity with trace effusion.? In addition, nodular areas of opacity are present within the lungs most prominent in the left upper lobe.? Mediastinal and hilar adenopathy is present.? Overall appearance is most suggestive of infection/inflammation such as pneumonia.? Nodular opacities raise suspicion for etiology such as fungal or mycobacterial.? Recommend interval follow up after appropriate therapy to document resolution. ? No pulmonary embolism. ? Cholelithiasis, unchanged. ? Unchanged low-attenuation hepatic foci as above. ? ? ? Dictated by: Barbara Lackey M.D. on 12/18/2022 at 15:41 ? ? Approved by: Barbara Lackey M.D. on 12/18/2022 at 15:46?? ECG Data Attestation: I personally reviewed and interpreted this ECG as follows: Interpretation: EKG from [facility] shows sinus rhythm in the 90s, occasional PVC, right bundle- branch. QRS of 130 QTC 438, WA 148. EKG in the department. Sinus rhythm with sinus arrhythmia, rate 87 [place] 164 QRS of [address] No acute [address] elevation depression noted. MDM Narrative Medical decision making narrative: This is a 77-year-old female who presents with complaint of fevers for the past week, cough with productive yellow sputum, shortness of breath and hypoxia. Patient appears to have pneumonia on her chest x-ray worsened from chest x-ray 7 days prior. Patient has completed a course of ciprofloxacin with worsening symptoms. Patient's workup shows chest x-ray from [facility] with left lower lobe pneumonia. CBC, CMP, lactate, procalcitonin, troponin BNP show minimal change, D-dimer was in the 2000 range. Respiratory panel was negative. Because of dimer CT angio was obtained does not show pulmonary emboli does show consolidative pneumonia with nodular areas of opacity and mediastinal and hilar adenopathy there is some suspicion for etiology is fungal or mycobacterial. Patient did receive a L bolus, Solu-Medrol 125 although was not particularly wheezy on exam and a dose of Zosyn here in the department. Patient's O2 sat continued to drop even at 5 or 6 L placed on non-rebreather, patient was switched over to high-flow 36% FiO2 with 35 L. Attempted ABG prior to this but was difficult stick and decision was made to go ahead and start high-flow. Patient tolerating this well. Patient has been comfortable throughout her stay even when she becomes hypoxic, patient high-flow up. Spoke with Dr. Santiago, hospitalist accepts for inpatient admission. Critical Care Time Critical Care Time Critical Care Time: Yes Total Critical Care Time: 35 Attestation: The high probability of a clinically significant, sudden or life threatening deterioration of the [pulm] system(s) required my full and direct attention, intervention and personal management. The aggregate critical care time was [] minutes. This time is in addition to time spent performing reported procedures but includes the following: [x] Data Review and interpretation [x] Patient assessment and monitoring of vital signs [x] Documentation [x] Medication orders and management Discharge Plan Departure Patient Disposition: Admitted As Inpatient Clinical Impression: Acute respiratory failure with hypoxia, Pneumonia Admit Date/Time: 12/18/22 16:38 Admit Provider: Bob Santiago
[2022-12-18] MEDS: methylPREDNISolone 125 MG/2 ML VIAL IV (13:49)
[2022-12-18] MEDS: PIPERACILLIN/TAZO 4.5 GM in SODIUM CHLORIDE 0.9% 100 ML IV (13:49)
[2022-12-18] MEDS: SODIUM CHLORIDE 0.9% 1,000 ML 1000 ML IV (13:49)
[2022-12-18 13:53] LABS: Add Manual Diff / Slide Review NO; Basophils Absolute Auto 100 /uL (0-100); Basophils Percent Auto 0.8 % (0-2); Eosinophils Absolute Auto 100 /uL (0-450); Eosinophils Percent Auto 1.2 % (2-4); Hematocrit 39.2 % (36-46); Hemoglobin 13.4 g/dL (12.0-16.0); Lymphocytes Absolute Auto 1000 /uL (1100-4500); Lymphocytes Percent Auto 12.7 % (25-40); Mean Corpuscular HGB Conc 34.1 % (30-36); Mean Corpuscular Hemoglobin 29.6 PG (26-34); Mean Corpuscular Volume 86.8 fL (80-100); Monocytes Absolute Auto 900 /uL (0-900); Monocytes Percent Auto 11.8 % (3-14); Neutrophils Absolute Auto 5700 /uL (1500-7000); Neutrophils Percent Auto 73.5 % (50-75); Platelet Count 268 X10^3/uL (150-400); Red Blood Cell Count 4.52 X10^6/uL (4.0-5.2); Red Cell Distribution Width 13.8 % (11.6-14.8); White Blood Cell Count 7.8 X10^3/uL (4.5-11.0)
[2022-12-18 14:06] LABS: INR 1.2 (0.9-1.3); Prothrombin Time 14.2 SECONDS (10.1-12.7)
[2022-12-18 14:07] LABS: D Dimer 2675 ng/ml (<500)
[2022-12-18 14:09] LABS: Alanine Aminotransferase 46 IU/L (<35); Albumin 3.9 g/dL (3.5-5.0); Albumin Globulin Ratio 1.1 (1.0-2.8); Alkaline Phosphatase 96 U/L (38-126); Aspartate Aminotransferase 41 IU/L (14-36); BUN Creatinine Ratio 18.7 (6-22); Bilirubin Total 0.5 mg/dL (0.2-1.3); Blood Urea Nitrogen 14 mg/dL (7-17); Calcium 8.6 mg/dL (8.4-10.2); Carbon Dioxide 26 mmol/L (22-32); Chloride 100 mmol/L (98-107); Creatine Kinase 154 U/L (30-135); Estimated Glomerular Filt Rate > 60 mL/min (>60); Globulin 3.7 g/dL (1.7-4.1); Glucose 123 mg/dL (80-110); HEMOLYSIS < 15 (0-50); Potassium 3.9 mmol/L (3.4-5.1); Sodium 134 mmol/L (137-145); Total Protein 7.6 g/dL (6.3-8.2)
[2022-12-18 14:10] LABS: Lactate (Lactic Acid) 1.1 mmol/L (0.7-2.1)
[2022-12-18 14:17] LABS: PTT Partial Thromboplastin Tim 30 SECONDS (26-36)
[2022-12-18 14:21] LABS: NT-proBNP (BNP-Adult 18+) 192 pg/mL (<450); Troponin I < 0.012 ng/mL (0.01-0.034)
--- NOTE | 2022-12-18 14:22 | DI.CT.S_ITS ---
PROCEDURE: CT ANGIO CHEST PE PROTOCOL INDICATIONS: pna failed treatment, sob, hypoxica dimer 1999 TECHNIQUE: After the administration of intravenous contrast, 2 mm thick sections acquired from the pulmonary apices to the posterior costophrenic angles. 3-dimensional maximum intensity projection (MIP) coronal and sagittal reformats were then acquired through the thorax. For radiation dose reduction, the following was used: automated exposure control, adjustment of mA and/or kV according to patient size. COMPARISON: [facility], CT, CT ABDOMEN PELVIS W CON, 08/19/2022, 19:13. [facility] ([place]), CR, XR CHEST 2V, 12/18/2022, 11:46. FINDINGS: Image quality: Excellent. Pulmonary arteries: Pulmonary arteries are normal in size, and demonstrate no intraluminal filling defects to suggest central pulmonary embolism. Lungs and pleura: Left lower lobe consolidative opacity is present with trace effusion. Patchy nodular areas of opacity are present within the lungs most severe in the left upper lobe. Mediastinum: Heart size is normal, without pericardial effusion. There is a 2.1 x 2.1 cm left hilar node. Enlarged mediastinal nodes are present, largest being a subcarinal node measuring 1.6 cm in short axis. Thoracic aorta is normal in caliber and enhancement. Esophagus is normal in caliber, without hiatal hernia. Bones and chest wall: No suspicious bony lesions. Ribs and thoracic spine appear intact throughout. Thyroid gland is unremarkable. No axillary or supraclavicular adenopathy. Abdomen: Gallstones are noted without wall thickening. Multiple low-attenuation hepatic foci are present. The largest foci are consistent with simple cysts. There foci are too small to definitively characterize. There overall unchanged. Visualized upper abdominal solid organs appear normal in the early arterial phase of enhancement. IMPRESSION: Left lower lobe consolidative opacity with trace effusion. In addition, nodular areas of opacity are present within the lungs most prominent in the left upper lobe. Mediastinal and hilar adenopathy is present. Overall appearance is most suggestive of infection/inflammation such as pneumonia. Nodular opacities raise suspicion for etiology such as fungal or mycobacterial. Recommend interval follow up after appropriate therapy to document resolution. No pulmonary embolism. Cholelithiasis, unchanged. Unchanged low-attenuation hepatic foci as above. Dictated by: Barbara Lackey M.D. on 12/18/2022 at 15:41 Approved by: Barbara Lackey M.D. on 12/18/2022 at 15:46
[2022-12-18 14:26] LABS: Procalcitonin 0.14 ng/mL (<0.5)
[2022-12-18 15:11] LABS: Adenovirus Not Detected (Not Detect); B. parapertussis Not Detected (Not Detecte); Bordetella pertussis Not Detected (Not Detecte); Chlamydophila pneumoniae Not Detected (Not Detect); Coronavirus 229E Not Detected (Not Detect); Coronavirus HKU1 Not Detected (Not Detect); Coronavirus NL 63 Not Detected (Not Detect); Coronavirus OC43 Not Detected (Not Detect); Human Metapneumovirus Not Detected (Not Detect); Human Rhinovirus/Enterovirus Not Detected (Not Detect); Influenza A Not Detected (Not Detect); Influenza B Not Detected (Not Detect); Mycoplasma pneumoniae Not Detected (Not Detect); Parainfluenza Virus 1 Not Detected (Not Detect); Parainfluenza Virus 2 Not Detected (Not Detect); Parainfluenza Virus 3 Not Detected (Not Detect); Parainfluenza Virus 4 Not Detected (Not Detect); Respiratory Syncytial Virus Not Detected (Not Detect); SARS- CoV-2 Not Detected (Not Detecte)
[2022-12-18 15:57] LABS: Bacteria Urine None Seen; RBC Urine 0-1/HPF (0-5/HPF); Squamous Epithelial Cell Urine 0-1 /HPF (0-5/HPF); WBC Urine 0-1/HPF (0-5/HPF)
[2022-12-18 16:50] LABS: Fractionated Inspired Oxygen 40; HCO3 ABG 23 mmol/L (23-27); Oxygen Saturation ABG 96 % (95-100); PCO2 ABG 30.3 mmHg (35-45); PO2 ABG 72 mmHg (80-100); TCO2 ABG 24 mmol/L (23-27); pH ABG 7.49 (7.35-7.45)
[2022-12-18 17:03] LABS: Magnesium 2.5 mg/dL (1.6-2.3)
--- NOTE | 2022-12-18 17:38 | PM.HP.1 ---
History of Present Illness History of Present Illness Date Patient Seen: 12/18/22 Time Patient Seen: 18:18 Chief complaint: sob, hypoxia Narrative: Elaine Hernandez is a 77-year-old female with past medical history of breast cancer s/p lumpectomy on anastrazole, and HLD who presents with dyspnea, fevers and worsening productive cough for 1 week. Patient states she recently had family visiting with her young grandson who had a cough and runny nose which they thought was hay fever. She shortly after developed similar symptoms which developed into shortness of breath, cough and fevers. Had CXR 1 week ago which was clear, but UA showed possible UTI. Placed on 1 week of cipro. Her respiratory symptoms progressed until she was found to be 86% on room air at home. She was brought in by EMS thereafter. In the ED patient found to have left sided infiltrates consistent with PNA. Placed on high flow. She currently states she feels alot better on supp O2. She denies NV, abd pain, CP, diarrhea or syncope. [facility] Medical History Other hyperlipidemia (07/11/15) Social History household members: spouse Smoking Status: Never smoker Meds Home Medications and Allergies Home Medications Medication Instructions Recorded Confirmed Type anastrozole 1 mg tablet (Arimidex) 1 mg PO BEDTIME 11/20/20 12/18/22 History ibuprofen 400 mg tablet 400 mg PO Q6H PRN pain 11/20/20 12/18/22 History multivitamin (Multiple Vitamins 1 tab PO DAILY 11/20/20 12/18/22 History tablet) pravastatin 40 mg tablet 40 mg PO Q EVENING #90 tabs 01/30/22 12/18/22 Rx triamcinolone acetonide 0.1 % 1 applic topical DAILY #30 grams 03/11/22 12/18/22 Rx topical cream fluticasone furoate 27.5 2 spray intranasal DAILY #9.1 mL 12/11/22 12/18/22 Rx mcg/actuation nasal spray,suspension calcium citrate 500 mg PO BID 12/18/22 12/18/22 History Allergies Allergy/AdvReac Type Severity Reaction Status Date / Time Sulfa (Sulfonamide Allergy Mild Sores in Verified 12/18/22 13:45 Antibiotics) mouth [SULFA (SULFONAMIDE ANTIBIOTICS)] Review of Systems Review of Systems Narrative: All other systems reviewed with the patient and are negative unless otherwise stated. Exam Vital Signs (past 8 hours): - 12/18/22 13:25 12/18/22 13:45 12/18/22 13:50 Temperature 99.9 F H Pulse Rate 100 H 93 H 89 Respiratory Rate 34 H 30 H 33 H Blood Pressure 148/65 H Pulse Oximetry 90 L 87 L 91 Oxygen Delivery Method Non -Rebreather Nasal Cannula Nasal Cannula Oxygen Flow Rate 5 6 12/18/22 13:55 12/18/22 14:00 12/18/22 14:00 Temperature Pulse Rate 86 88 Respiratory Rate 26 H 24 Blood Pressure 142/65 H Pulse Oximetry 91 92 Oxygen Delivery Method Oxygen Flow Rate 12/18/22 14:04 12/18/22 14:04 12/18/22 14:05 Temperature Pulse Rate 90 Respiratory Rate 31 H Blood Pressure 144/65 H 156/72 H Pulse Oximetry 92 Oxygen Delivery Method Oxygen Flow Rate 12/18/22 14:05 12/18/22 14:10 12/18/22 14:11 Temperature Pulse Rate 92 H 91 H Respiratory Rate 28 H 35 H Blood Pressure 153/64 H Pulse Oximetry 93 93 Oxygen Delivery Method Oxygen Flow Rate 12/18/22 14:11 12/18/22 14:20 12/18/22 14:15 Temperature Pulse Rate 96 H 96 H Respiratory Rate 41 H 16 Blood Pressure 153/64 H 143/72 H Pulse Oximetry 92 Oxygen Delivery Method Oxygen Flow Rate 12/18/22 14:15 12/18/22 14:20 12/18/22 14:20 Temperature Pulse Rate 90 88 Respiratory Rate 33 H 28 H Blood Pressure 146/67 H Pulse Oximetry 91 Oxygen Delivery Method High Flow Nasal Cannula Oxygen Flow Rate 12/18/22 14:25 12/18/22 14:26 12/18/22 14:26 Temperature Pulse Rate 99 H 93 H Respiratory Rate 42 H 32 H Blood Pressure 116/63 Pulse Oximetry 94 93 Oxygen Delivery Method Oxygen Flow Rate 12/18/22 14:30 12/18/22 14:30 12/18/22 14:35 Temperature Pulse Rate 92 H 92 H Respiratory Rate 33 H 29 H Blood Pressure 126/65 Pulse Oximetry 93 Oxygen Delivery Method Oxygen Flow Rate 12/18/22 14:50 12/18/22 14:55 12/18/22 15:00 Temperature Pulse Rate 98 H 105 H 96 H Respiratory Rate 41 H 34 H 33 H Blood Pressure Pulse Oximetry 90 L Oxygen Delivery Method Oxygen Flow Rate 12/18/22 15:02 12/18/22 15:02 12/18/22 15:05 Temperature Pulse Rate 95 H Respiratory Rate 29 H Blood Pressure 182/76 H 170/74 H Pulse Oximetry 90 L Oxygen Delivery Method Oxygen Flow Rate 12/18/22 15:05 12/18/22 15:10 12/18/22 15:11 Temperature Pulse Rate 96 H 92 H 93 H Respiratory Rate 22 24 24 Blood Pressure Pulse Oximetry 90 L 90 L 90 L Oxygen Delivery Method Oxygen Flow Rate 12/18/22 15:11 12/18/22 15:15 12/18/22 15:15 Temperature Pulse Rate 91 H Respiratory Rate 21 Blood Pressure 165/76 H 147/68 H Pulse Oximetry 90 L Oxygen Delivery Method Oxygen Flow Rate 12/18/22 15:20 12/18/22 15:20 12/18/22 15:25 Temperature Pulse Rate 91 H Respiratory Rate 17 Blood Pressure 148/68 H 136/69 Pulse Oximetry 90 L Oxygen Delivery Method Oxygen Flow Rate 12/18/22 15:25 12/18/22 15:30 12/18/22 15:30 Temperature Pulse Rate 92 H 92 H Respiratory Rate 22 28 H Blood Pressure 146/64 H Pulse Oximetry 90 L 90 L Oxygen Delivery Method Oxygen Flow Rate 12/18/22 15:35 12/18/22 15:35 12/18/22 15:40 Temperature Pulse Rate 93 H Respiratory Rate 25 H Blood Pressure 151/65 H 155/70 H Pulse Oximetry 90 L Oxygen Delivery Method Oxygen Flow Rate 12/18/22 15:40 12/18/22 15:45 12/18/22 15:46 Temperature Pulse Rate 93 H 95 H Respiratory Rate 17 37 H Blood Pressure 153/69 H Pulse Oximetry 89 L 90 L Oxygen Delivery Method Oxygen Flow Rate 12/18/22 15:46 12/18/22 15:50 12/18/22 15:50 Temperature Pulse Rate 91 H 92 H Respiratory Rate 33 H 33 H Blood Pressure 151/60 H Pulse Oximetry 91 90 L Oxygen Delivery Method Oxygen Flow Rate 12/18/22 15:55 12/18/22 15:55 12/18/22 16:00 Temperature Pulse Rate 88 Respiratory Rate 30 H Blood Pressure 143/63 H 138/65 Pulse Oximetry 89 L Oxygen Delivery Method Oxygen Flow Rate 12/18/22 16:00 12/18/22 16:05 12/18/22 16:05 Temperature Pulse Rate 87 90 Respiratory Rate 29 H 25 H Blood Pressure 140/66 Pulse Oximetry 89 L 89 L Oxygen Delivery Method Oxygen Flow Rate 12/18/22 16:10 12/18/22 16:10 12/18/22 16:15 Temperature Pulse Rate 91 H Respiratory Rate 24 Blood Pressure 141/70 H 152/77 H Pulse Oximetry 91 Oxygen Delivery Method Oxygen Flow Rate 12/18/22 16:15 12/18/22 16:20 12/18/22 16:20 Temperature Pulse Rate 89 90 Respiratory Rate 28 H 20 Blood Pressure 158/70 H Pulse Oximetry 90 L 89 L Oxygen Delivery Method Oxygen Flow Rate 12/18/22 16:25 12/18/22 16:25 12/18/22 16:30 Temperature Pulse Rate 88 86 Respiratory Rate 26 H 20 Blood Pressure 136/65 Pulse Oximetry 90 L 94 Oxygen Delivery Method Oxygen Flow Rate 37 12/18/22 16:35 12/18/22 16:40 12/18/22 16:45 Temperature Pulse Rate 84 82 84 Respiratory Rate 16 20 31 H Blood Pressure Pulse Oximetry 93 94 93 Oxygen Delivery Method High Flow Nasal Cannula Oxygen Flow Rate 40 12/18/22 16:50 12/18/22 16:55 12/18/22 17:00 Temperature Pulse Rate 83 81 83 Respiratory Rate 32 H 12 17 Blood Pressure Pulse Oximetry 94 94 92 Oxygen Delivery Method Oxygen Flow Rate 12/18/22 17:05 12/18/22 17:18 12/18/22 17:20 Temperature Pulse Rate 83 88 87 Respiratory Rate 13 25 H 25 H Blood Pressure Pulse Oximetry 92 98 95 Oxygen Delivery Method Oxygen Flow Rate 12/18/22 17:22 12/18/22 17:22 12/18/22 17:25 Temperature Pulse Rate 84 82 Respiratory Rate 11 L 22 Blood Pressure 142/63 H Pulse Oximetry 91 94 Oxygen Delivery Method Oxygen Flow Rate 12/18/22 17:30 12/18/22 17:35 Temperature Pulse Rate 81 81 Respiratory Rate 18 21 Blood Pressure Pulse Oximetry 95 94 Oxygen Delivery Method Oxygen Flow Rate Oxygen Delivery Method High Flow Nasal Cannula Oxygen Flow Rate 40 Narrative Exam Narrative: GEN: no acute distress, on HFNC with wet cough HEENT: moist mucous membranes, PERRL NECK: trachea midline, no JVD CV: regular rate and rhythm, no murmurs PULM: diffuse expiratory wheezes ABD: soft, nontender, nondistended, no organomegaly EXT: warm and well perfused with no edema NEURO: awake, alert, oriented, no focal deficits Objective Labs 12/18/22 13:30 12/18/22 13:30 Labs: Laboratory Results - last 24 hr 12/18/22 12/18/22 12/18/22 13:30 13:30 13:30 WBC 7.8 RBC 4.52 Hgb 13.4 Hct 39.2 MCV 86.8 MCH 29.6 MCHC 34.1 RDW 13.8 Plt Count 268 Neut % (Auto) 73.5 Lymph % (Auto) 12.[address] % (Auto) 11.8 Eos % (Auto) 1.2 L Baso % (Auto) 0.8 Neut # (Auto) 5700 Lymph # (Auto) [address] [place] # (Auto) 900 Eos # (Auto) 100 Baso # (Auto) 100 PT 14.2 H INR 1.2 APTT D-Dimer 2675 H ABG pH ABG pCO2 ABG pO2 ABG HCO3 ABG Total CO2 ABG O2 Saturation ABG Base Excess FiO2 Sodium 134 L Potassium 3.9 Chloride 100 Carbon Dioxide 26 BUN 14 Creatinine 0.75 Estimated GFR > 60 BUN/Creatinine Ratio 18.7 Glucose 123 H Lactate Calcium 8.6 Magnesium Total Bilirubin 0.5 AST 41 H ALT 46 H Alkaline Phosphatase 96 Total Creatine Kinase 154 H Troponin I < 0.012 NT-Pro-B Natriuret Pep 192 Total Protein 7.6 Albumin 3.9 Globulin 3.7 Albumin/Globulin Ratio 1.1 Procalcitonin 0.14 Urine RBC Urine WBC Ur Squamous Epith Cells Urine Bacteria Chlamy pneumoniae PCR Adenovirus (PCR) B. pertussis DNA (PCR) B.parapertussis DNA PCR Coronavirus OC43 (PCR) Coronavirus HKU1 (PCR) Coronavirus 229E (PCR) SARS-CoV-2 (PCR) Coronavirus NL63 (PCR) Human Metapneumovir PCR Influenza Type A (PCR) Influenza Type B (PCR) M. pneumoniae (PCR) Parainfluenza 1 (PCR) Parainfluenza 2 (PCR) Parainfluenza 3 (PCR) Parainfluenza 4 (PCR) RSV (PCR) Entero/Rhino (PCR) 12/18/22 12/18/22 12/18/22 13:30 13:30 13:30 WBC RBC Hgb Hct MCV MCH MCHC RDW Plt Count Neut % (Auto) Lymph % (Auto) [place] % (Auto) Eos % (Auto) Baso % (Auto) Neut # (Auto) Lymph # (Auto) [place] # (Auto) Eos # (Auto) Baso # (Auto) PT INR APTT 30 D-Dimer ABG pH ABG pCO2 ABG pO2 ABG HCO3 ABG Total CO2 ABG O2 Saturation ABG Base Excess FiO2 Sodium Potassium Chloride Carbon Dioxide BUN Creatinine Estimated GFR BUN/Creatinine Ratio Glucose Lactate 1.1 Calcium Magnesium Total Bilirubin AST ALT Alkaline Phosphatase Total Creatine Kinase Troponin I NT-Pro-B Natriuret Pep Total Protein Albumin Globulin Albumin/Globulin Ratio Procalcitonin Urine RBC Urine WBC Ur Squamous Epith Cells Urine Bacteria Chlamy pneumoniae PCR Not detected Adenovirus (PCR) Not detected B. pertussis DNA (PCR) Not detected B.parapertussis DNA PCR Not detected Coronavirus OC43 (PCR) Not detected Coronavirus HKU1 (PCR) Not detected Coronavirus 229E (PCR) Not detected SARS-CoV-2 (PCR) Not detected Coronavirus NL63 (PCR) Not detected Human Metapneumovir PCR Not detected Influenza Type A (PCR) Not detected Influenza Type B (PCR) Not detected M. pneumoniae (PCR) Not detected Parainfluenza 1 (PCR) Not detected Parainfluenza 2 (PCR) Not detected Parainfluenza 3 (PCR) Not detected Parainfluenza 4 (PCR) Not detected RSV (PCR) Not detected Entero/Rhino (PCR) Not detected 12/18/22 12/18/22 12/18/22 13:30 15:01 16:36 WBC RBC Hgb Hct MCV MCH MCHC RDW Plt Count Neut % (Auto) Lymph % (Auto) [place] % (Auto) Eos % (Auto) Baso % (Auto) Neut # (Auto) Lymph # (Auto) [place] # (Auto) Eos # (Auto) Baso # (Auto) PT INR APTT D-Dimer ABG pH 7.49 H ABG pCO2 30.3 L ABG pO2 72 L ABG HCO3 23 ABG Total CO2 24 ABG O2 Saturation 96 ABG Base Excess 0.0 FiO2 40 Sodium Potassium Chloride Carbon Dioxide BUN Creatinine Estimated GFR BUN/Creatinine Ratio Glucose Lactate Calcium Magnesium 2.5 H Total Bilirubin AST ALT Alkaline Phosphatase Total Creatine Kinase Troponin I NT-Pro-B Natriuret Pep Total Protein Albumin Globulin Albumin/Globulin Ratio Procalcitonin Urine RBC 0-1/hpf Urine WBC 0-1/hpf Ur Squamous Epith Cells 0-1 /hpf Urine Bacteria None seen Chlamy pneumoniae PCR Adenovirus (PCR) B. pertussis DNA (PCR) B.parapertussis DNA PCR Coronavirus OC43 (PCR) Coronavirus HKU1 (PCR) Coronavirus 229E (PCR) SARS-CoV-2 (PCR) Coronavirus NL63 (PCR) Human Metapneumovir PCR Influenza Type A (PCR) Influenza Type B (PCR) M. pneumoniae (PCR) Parainfluenza 1 (PCR) Parainfluenza 2 (PCR) Parainfluenza 3 (PCR) Parainfluenza 4 (PCR) RSV (PCR) Entero/Rhino (PCR) Assessment & Plan Assessment & Plan narrative: # acute hypoxic respiratory failure -secondary to pneumonia -continue high-flow nasal cannula, wean as able -ABG with hypoxia, alkalosis, no hypercarbia # community-acquired pneumonia -CTA chest with nodular opacities and dense left lower lobe infiltrate consistent with pneumonia, however interestingly no leukocytosis and procal only 0.14 -Rocephin x5 days and azithromycin x3 days -obtain sputum culture -Mucinex, Tessalon Perles and DuoNebs as needed -respiratory PCR negative # recent UTI -completed course of Cipro -UA negative # prior breast cancer -continue home anastrozole # hyperlipidemia -continue home statin Code status is Full code. DVT prophylaxis with Lovenox. Proxy is Yrn. I have reviewed home meds and used all available resources to reconcile the home meds. I spent a total of 35 minutes of critical care time on this patient's care today; this time is exclusive of procedural time. This patient will be admitted as ICU and will require greater than 2 midnights of hospital time to treat hypoxic respiratory failure secondary to pneumonia.
[2022-12-18] MEDS: AZITHROMYCIN 250 MG TABLET 500 MG PO (17:40)
[2022-12-18] MEDS: guaiFENesin ER 600 MG TAB PO ×2 (17:40→21:00)
[2022-12-18] MEDS: ENOXAPARIN 40 MG/0.4 ML SYRINGE SUBCUT (17:41)
[2022-12-18] MEDS: cefTRIAXone 2,000 MG in SODIUM CHLORIDE 0.9% 100 ML 200 MG IV (17:44)
--- NOTE | 2022-12-18 17:44 | PM.CN.EICU ---
History of Present Illness Consult details IF CAMERA ACTIVATED, patient seen via real-time interactive audiovisual communication: Camera activated Chief complaint: sob, hypoxia Consent obtained for tele-tactical debriefer officer care: Yes Patient Location: ICU Provider location (State): [place] Other participants/roles: bedside nursing, Dr. [facility] Medical History Other hyperlipidemia (07/11/15) Social History Smoking Status: Never smoker Current Medications Current Medications Medications: Home Medications anastrozole 1 mg tablet 1 mg PO DAILY 11/20/20 [History Confirmed 12/18/22] ibuprofen 400 mg tablet 400 mg PO Q6H PRN pain 11/20/20 [History Confirmed 12/18/22] multivitamin (Multiple Vitamins tablet) 1 tab PO DAILY 11/20/20 [History Confirmed 12/18/22] pravastatin 40 mg tablet 40 mg PO Q EVENING #90 tabs 01/30/22 [Rx Confirmed 12/18/22] triamcinolone acetonide 0.1 % topical cream 1 applic topical DAILY #30 grams 03/11/22 [Rx Confirmed 12/18/22] calcium carbonate 500 mg calcium (1,250 mg) tablet 500 mg PO BID 08/19/22 [History Confirmed 12/18/22] fluticasone furoate 27.5 mcg/actuation nasal spray,suspension 2 spray intranasal DAILY #9.1 mL 12/11/22 [Rx Confirmed 12/18/22] Visit Medications (administered) Generic Name Dose Route Start Last Admin Trade Name Christopherq PRN Reason Stop Dose Admin Azithromycin 500 mg 12/18/22 16:45 12/18/22 17:40 Azithromycin 250 Mg Tablet PO 12/20/22 09:01 500 mg DAILY ERASMO Administration Enoxaparin Sodium 40 mg 12/18/22 16:45 12/18/22 17:41 Enoxaparin 40 Mg/0.4 Ml Syringe SUBCUT 40 mg DAILY ERASMO Administration Guaifenesin 600 mg 12/18/22 16:45 12/18/22 17:40 Guaifenesin Er 600 Mg Tab PO 600 mg BID ERASMO Administration Exam Vital Signs (past 8 hours): - 12/18/22 13:25 12/18/22 13:45 12/18/22 13:50 Temperature 99.9 F H Pulse Rate 100 H 93 H 89 Respiratory Rate 34 H 30 H 33 H Blood Pressure 148/65 H Pulse Oximetry 90 L 87 L 91 Oxygen Delivery Method Non -Rebreather Nasal Cannula Nasal Cannula Oxygen Flow Rate 5 6 12/18/22 13:55 12/18/22 14:00 12/18/22 14:00 Temperature Pulse Rate 86 88 Respiratory Rate 26 H 24 Blood Pressure 142/65 H Pulse Oximetry 91 92 Oxygen Delivery Method Oxygen Flow Rate 12/18/22 14:04 12/18/22 14:04 12/18/22 14:05 Temperature Pulse Rate 90 Respiratory Rate 31 H Blood Pressure 144/65 H 156/72 H Pulse Oximetry 92 Oxygen Delivery Method Oxygen Flow Rate 12/18/22 14:05 12/18/22 14:10 12/18/22 14:11 Temperature Pulse Rate 92 H 91 H Respiratory Rate 28 H 35 H Blood Pressure 153/64 H Pulse Oximetry 93 93 Oxygen Delivery Method Oxygen Flow Rate 12/18/22 14:11 12/18/22 14:20 12/18/22 14:15 Temperature Pulse Rate 96 H 96 H Respiratory Rate 41 H 16 Blood Pressure 153/64 H 143/72 H Pulse Oximetry 92 Oxygen Delivery Method Oxygen Flow Rate 12/18/22 14:15 12/18/22 14:20 12/18/22 14:20 Temperature Pulse Rate 90 88 Respiratory Rate 33 H 28 H Blood Pressure 146/67 H Pulse Oximetry 91 Oxygen Delivery Method High Flow Nasal Cannula Oxygen Flow Rate 12/18/22 14:25 12/18/22 14:26 12/18/22 14:26 Temperature Pulse Rate 99 H 93 H Respiratory Rate 42 H 32 H Blood Pressure 116/63 Pulse Oximetry 94 93 Oxygen Delivery Method Oxygen Flow Rate 12/18/22 14:30 12/18/22 14:30 12/18/22 14:35 Temperature Pulse Rate 92 H 92 H Respiratory Rate 33 H 29 H Blood Pressure 126/65 Pulse Oximetry 93 Oxygen Delivery Method Oxygen Flow Rate 12/18/22 14:50 12/18/22 14:55 12/18/22 15:00 Temperature Pulse Rate 98 H 105 H 96 H Respiratory Rate 41 H 34 H 33 H Blood Pressure Pulse Oximetry 90 L Oxygen Delivery Method Oxygen Flow Rate 12/18/22 15:02 12/18/22 15:02 12/18/22 15:05 Temperature Pulse Rate 95 H Respiratory Rate 29 H Blood Pressure 182/76 H 170/74 H Pulse Oximetry 90 L Oxygen Delivery Method Oxygen Flow Rate 12/18/22 15:05 12/18/22 15:10 12/18/22 15:11 Temperature Pulse Rate 96 H 92 H 93 H Respiratory Rate 22 24 24 Blood Pressure Pulse Oximetry 90 L 90 L 90 L Oxygen Delivery Method Oxygen Flow Rate 12/18/22 15:11 12/18/22 15:15 12/18/22 15:15 Temperature Pulse Rate 91 H Respiratory Rate 21 Blood Pressure 165/76 H 147/68 H Pulse Oximetry 90 L Oxygen Delivery Method Oxygen Flow Rate 12/18/22 15:20 12/18/22 15:20 12/18/22 15:25 Temperature Pulse Rate 91 H Respiratory Rate 17 Blood Pressure 148/68 H 136/69 Pulse Oximetry 90 L Oxygen Delivery Method Oxygen Flow Rate 12/18/22 15:25 12/18/22 15:30 12/18/22 15:30 Temperature Pulse Rate 92 H 92 H Respiratory Rate 22 28 H Blood Pressure 146/64 H Pulse Oximetry 90 L 90 L Oxygen Delivery Method Oxygen Flow Rate 12/18/22 15:35 12/18/22 15:35 12/18/22 15:40 Temperature Pulse Rate 93 H Respiratory Rate 25 H Blood Pressure 151/65 H 155/70 H Pulse Oximetry 90 L Oxygen Delivery Method Oxygen Flow Rate 12/18/22 15:40 12/18/22 15:45 12/18/22 15:46 Temperature Pulse Rate 93 H 95 H Respiratory Rate 17 37 H Blood Pressure 153/69 H Pulse Oximetry 89 L 90 L Oxygen Delivery Method Oxygen Flow Rate 12/18/22 15:46 12/18/22 15:50 12/18/22 15:50 Temperature Pulse Rate 91 H 92 H Respiratory Rate 33 H 33 H Blood Pressure 151/60 H Pulse Oximetry 91 90 L Oxygen Delivery Method Oxygen Flow Rate 12/18/22 15:55 12/18/22 15:55 12/18/22 16:00 Temperature Pulse Rate 88 Respiratory Rate 30 H Blood Pressure 143/63 H 138/65 Pulse Oximetry 89 L Oxygen Delivery Method Oxygen Flow Rate 12/18/22 16:00 12/18/22 16:05 12/18/22 16:05 Temperature Pulse Rate 87 90 Respiratory Rate 29 H 25 H Blood Pressure 140/66 Pulse Oximetry 89 L 89 L Oxygen Delivery Method Oxygen Flow Rate 12/18/22 16:10 12/18/22 16:10 12/18/22 16:15 Temperature Pulse Rate 91 H Respiratory Rate 24 Blood Pressure 141/70 H 152/77 H Pulse Oximetry 91 Oxygen Delivery Method Oxygen Flow Rate 12/18/22 16:15 12/18/22 16:20 12/18/22 16:20 Temperature Pulse Rate 89 90 Respiratory Rate 28 H 20 Blood Pressure 158/70 H Pulse Oximetry 90 L 89 L Oxygen Delivery Method Oxygen Flow Rate 12/18/22 16:25 12/18/22 16:25 12/18/22 16:30 Temperature Pulse Rate 88 86 Respiratory Rate 26 H 20 Blood Pressure 136/65 Pulse Oximetry 90 L 94 Oxygen Delivery Method Oxygen Flow Rate 37 12/18/22 16:35 12/18/22 16:40 12/18/22 16:45 Temperature Pulse Rate 84 82 84 Respiratory Rate 16 20 31 H Blood Pressure Pulse Oximetry 93 94 93 Oxygen Delivery Method High Flow Nasal Cannula Oxygen Flow Rate 40 12/18/22 16:50 12/18/22 16:55 12/18/22 17:00 Temperature Pulse Rate 83 81 83 Respiratory Rate 32 H 12 17 Blood Pressure Pulse Oximetry 94 94 92 Oxygen Delivery Method Oxygen Flow Rate 12/18/22 17:05 12/18/22 17:18 12/18/22 17:20 Temperature Pulse Rate 83 88 87 Respiratory Rate 13 25 H 25 H Blood Pressure Pulse Oximetry 92 98 95 Oxygen Delivery Method Oxygen Flow Rate 12/18/22 17:22 12/18/22 17:22 12/18/22 17:25 Temperature Pulse Rate 84 82 Respiratory Rate 11 L 22 Blood Pressure 142/63 H Pulse Oximetry 91 94 Oxygen Delivery Method Oxygen Flow Rate 12/18/22 17:30 12/18/22 17:35 Temperature Pulse Rate 81 81 Respiratory Rate 18 21 Blood Pressure Pulse Oximetry 95 94 Oxygen Delivery Method Oxygen Flow Rate Oxygen Delivery Method High Flow Nasal Cannula Oxygen Flow Rate 40 Objective Labs 12/18/22 13:30 12/18/22 13:30 Labs: Laboratory Results - last 24 hr 12/18/22 12/18/22 12/18/22 13:30 13:30 13:30 WBC 7.8 RBC 4.52 Hgb 13.4 Hct 39.2 MCV 86.8 MCH 29.6 MCHC 34.1 RDW 13.8 Plt Count 268 Neut % (Auto) 73.5 Lymph % (Auto) 12.7 L [place] % (Auto) 11.8 Eos % (Auto) 1.2 L Baso % (Auto) 0.8 Neut # (Auto) 5700 Lymph # (Auto) 1000 L [place] # (Auto) 900 Eos # (Auto) 100 Baso # (Auto) 100 PT 14.2 H INR 1.2 APTT D-Dimer 2675 H ABG pH ABG pCO2 ABG pO2 ABG HCO3 ABG Total CO2 ABG O2 Saturation ABG Base Excess FiO2 Sodium 134 L Potassium 3.9 Chloride 100 Carbon Dioxide 26 BUN 14 Creatinine 0.75 Estimated GFR > 60 BUN/Creatinine Ratio 18.7 Glucose 123 H Lactate Calcium 8.6 Magnesium Total Bilirubin 0.5 AST 41 H ALT 46 H Alkaline Phosphatase 96 Total Creatine Kinase 154 H Troponin I < 0.012 NT-Pro-B Natriuret Pep 192 Total Protein 7.6 Albumin 3.9 Globulin 3.7 Albumin/Globulin Ratio 1.1 Procalcitonin 0.14 Urine RBC Urine WBC Ur Squamous Epith Cells Urine Bacteria Chlamy pneumoniae PCR Adenovirus (PCR) B. pertussis DNA (PCR) B.parapertussis DNA PCR Coronavirus OC43 (PCR) Coronavirus HKU1 (PCR) Coronavirus 229E (PCR) SARS-CoV-2 (PCR) Coronavirus NL63 (PCR) Human Metapneumovir PCR Influenza Type A (PCR) Influenza Type B (PCR) M. pneumoniae (PCR) Parainfluenza 1 (PCR) Parainfluenza 2 (PCR) Parainfluenza 3 (PCR) Parainfluenza 4 (PCR) RSV (PCR) Entero/Rhino (PCR) 12/18/22 12/18/22 12/18/22 13:30 13:30 13:30 WBC RBC Hgb Hct MCV MCH MCHC RDW Plt Count Neut % (Auto) Lymph % (Auto) [place] % (Auto) Eos % (Auto) Baso % (Auto) Neut # (Auto) Lymph # (Auto) [place] # (Auto) Eos # (Auto) Baso # (Auto) PT INR APTT 30 D-Dimer ABG pH ABG pCO2 ABG pO2 ABG HCO3 ABG Total CO2 ABG O2 Saturation ABG Base Excess FiO2 Sodium Potassium Chloride Carbon Dioxide BUN Creatinine Estimated GFR BUN/Creatinine Ratio Glucose Lactate 1.1 Calcium Magnesium Total Bilirubin AST ALT Alkaline Phosphatase Total Creatine Kinase Troponin I NT-Pro-B Natriuret Pep Total Protein Albumin Globulin Albumin/Globulin Ratio Procalcitonin Urine RBC Urine WBC Ur Squamous Epith Cells Urine Bacteria Chlamy pneumoniae PCR Not detected Adenovirus (PCR) Not detected B. pertussis DNA (PCR) Not detected B.parapertussis DNA PCR Not detected Coronavirus OC43 (PCR) Not detected Coronavirus HKU1 (PCR) Not detected Coronavirus 229E (PCR) Not detected SARS-CoV-2 (PCR) Not detected Coronavirus NL63 (PCR) Not detected Human Metapneumovir PCR Not detected Influenza Type A (PCR) Not detected Influenza Type B (PCR) Not detected M. pneumoniae (PCR) Not detected Parainfluenza 1 (PCR) Not detected Parainfluenza 2 (PCR) Not detected Parainfluenza 3 (PCR) Not detected Parainfluenza 4 (PCR) Not detected RSV (PCR) Not detected Entero/Rhino (PCR) Not detected 12/18/22 12/18/22 12/18/22 13:30 15:01 16:36 WBC RBC Hgb Hct MCV MCH MCHC RDW Plt Count Neut % (Auto) Lymph % (Auto) [place] % (Auto) Eos % (Auto) Baso % (Auto) Neut # (Auto) Lymph # (Auto) [place] # (Auto) Eos # (Auto) Baso # (Auto) PT INR APTT D-Dimer ABG pH 7.49 H ABG pCO2 30.3 L ABG pO2 72 L ABG HCO3 23 ABG Total CO2 24 ABG O2 Saturation 96 ABG Base Excess 0.0 FiO2 40 Sodium Potassium Chloride Carbon Dioxide BUN Creatinine Estimated GFR BUN/Creatinine Ratio Glucose Lactate Calcium Magnesium 2.5 H Total Bilirubin AST ALT Alkaline Phosphatase Total Creatine Kinase Troponin I NT-Pro-B Natriuret Pep Total Protein Albumin Globulin Albumin/Globulin Ratio Procalcitonin Urine RBC 0-1/hpf Urine WBC 0-1/hpf Ur Squamous Epith Cells 0-1 /hpf Urine Bacteria None seen Chlamy pneumoniae PCR Adenovirus (PCR) B. pertussis DNA (PCR) B.parapertussis DNA PCR Coronavirus OC43 (PCR) Coronavirus HKU1 (PCR) Coronavirus 229E (PCR) SARS-CoV-2 (PCR) Coronavirus NL63 (PCR) Human Metapneumovir PCR Influenza Type A (PCR) Influenza Type B (PCR) M. pneumoniae (PCR) Parainfluenza 1 (PCR) Parainfluenza 2 (PCR) Parainfluenza 3 (PCR) Parainfluenza 4 (PCR) RSV (PCR) Entero/Rhino (PCR) Assessment & Plan Assessment & Plan narrative: patient seen chart/labs/imaging reviewed 77 year old female with PMHx of breast CA, HLD admitted to ICU with: acute respiratory failure pneumonia left pleural effusion currently afebrile, HD stable sat 93% on HFnC 40/40% wbc 12 cxr left lower lobe infiltrate CTA -ve for PE, left lower love infiltrate, left effusion, sub-carinal nodule viral panel -ve plan -avoid opiods/benzos -abx -cxs -keep sat aabove 92% -check serial ekg/trop -check echo -monitor ins/outs -replace lytes prn -keep glucose 140-180s -gi/dvt ppx -please call eICU if condition changes total ccm time 45 mins
--- NOTE | 2022-12-18 18:53 | PC.NURSE ---
Admission Arrived to ICU approx. 1730. Heated high flow at 45L/40% with sats maintaining in low 90's. Reports feeling better this evening than she did this morning. Admission completed, medications reconciled. Tolerated general diet, up to BSC with SBA. IV and PO antibiotics administered per MD order. Tele ICU provider consulted, Hospitalist at bedside for evaluation.
[2022-12-18 19:02] LABS: MRSA (Nasal) PCR Not Detected (Not Detect)
[2022-12-18] MEDS: ALBUTEROL/IPRATROPIUM 3 ML AMPUL INH (19:04)
--- NOTE | 2022-12-18 20:27 | PC.NURSE ---
1999- Observed that patient is desating to 88% frequesntly. Will in respiratory notified and Fi02 increased to keep saturation 92% or greater. Dr Corey aware as well. Will monitor.
[2022-12-18] MEDS: ANASTROZOLE 1 MG TABLET PO (21:00)
[2022-12-18] MEDS: FAMOTIDINE 20 MG/2 ML VIAL IV (21:00)
[2022-12-18] MEDS: CALCIUM CARBONATE 500 MG TAB PO (21:00)
[2022-12-18] MEDS: PRAVASTATIN 20 MG TABLET 40 MG PO (21:00)
[2022-12-18] MEDS: SODIUM CHLORIDE 0.9% FLUSH 10 ML IV (21:02)
[2022-12-19] VITALS (39 sets, daily range): BP systolic 106–201; BP diastolic 59–104; PULSE 76–119; RESP 8–47; TEMP 36.3–36.9; O2SAT 87–97
[2022-12-19 05:24] LABS: Add Manual Diff / Slide Review NO; Basophils Absolute Auto 0 /uL (0-100); Basophils Percent Auto 0.1 % (0-2); Eosinophils Absolute Auto 0 /uL (0-450); Hematocrit 39.3 % (36-46); Hemoglobin 13.4 g/dL (12.0-16.0); Lymphocytes Absolute Auto 1200 /uL (1100-4500); Lymphocytes Percent Auto 22.1 % (25-40); Mean Corpuscular HGB Conc 34.1 % (30-36); Mean Corpuscular Hemoglobin 29.7 PG (26-34); Monocytes Absolute Auto 600 /uL (0-900); Monocytes Percent Auto 11.2 % (3-14); Neutrophils Absolute Auto 3500 /uL (1500-7000); Neutrophils Percent Auto 66.6 % (50-75); Platelet Count 275 X10^3/uL (150-400); Red Blood Cell Count 4.51 X10^6/uL (4.0-5.2); Red Cell Distribution Width 13.7 % (11.6-14.8); White Blood Cell Count 5.2 X10^3/uL (4.5-11.0)
[2022-12-19 05:28] LABS: BUN Creatinine Ratio 22.9 (6-22); Blood Urea Nitrogen 16 mg/dL (7-17); Calcium 8.6 mg/dL (8.4-10.2); Carbon Dioxide 24 mmol/L (22-32); Chloride 106 mmol/L (98-107); Estimated Glomerular Filt Rate > 60 mL/min (>60); Glucose 137 mg/dL (80-110); HEMOLYSIS < 15 (0-50); Potassium 3.7 mmol/L (3.4-5.1); Sodium 140 mmol/L (137-145)
[2022-12-19 05:45] LABS: Procalcitonin 0.11 ng/mL (<0.5)
[2022-12-19] MEDS: ALBUTEROL/IPRATROPIUM 3 ML AMPUL INH (07:35)
--- NOTE | 2022-12-19 07:36 | PM.PN.1 ---
Subjective Subjective Interval history: Patient still having cough, SOB and on HFNC at 40L and 40%. Attempts at weaning her down failed as she became acutely tachycardic when going down to 30% FiO2. She has no compliants. Exam Vital Signs (past 8 hours): - 12/19/22 00:00 12/19/22 00:01 12/19/22 00:01 Temperature Pulse Rate 85 86 Respiratory Rate 32 H 22 Blood Pressure 152/104 H Pulse Oximetry 94 95 Oxygen Delivery Method Oxygen Flow Rate 12/19/22 00:02 12/19/22 00:02 12/19/22 01:00 Temperature 97.5 F L Pulse Rate 81 Respiratory Rate 22 Blood Pressure 142/63 H 152/69 H Pulse Oximetry 95 Oxygen Delivery Method Oxygen Flow Rate 45 12/19/22 01:00 12/19/22 02:00 12/19/22 02:00 Temperature Pulse Rate 78 83 Respiratory Rate 8 L 24 Blood Pressure 137/63 Pulse Oximetry 95 90 L Oxygen Delivery Method Oxygen Flow Rate 45 45 12/19/22 01:46 12/19/22 01:19 12/19/22 03:00 Temperature Pulse Rate 86 Respiratory Rate 24 Blood Pressure 120/59 L Pulse Oximetry 96 Oxygen Delivery Method Heated High Flow Oxygen Flow Rate 12/19/22 03:00 12/19/22 02:37 12/19/22 04:00 Temperature Pulse Rate 80 81 Respiratory Rate 24 22 Blood Pressure 134/61 Pulse Oximetry 92 92 Oxygen Delivery Method Oxygen Flow Rate 45 12/19/22 04:00 12/19/22 04:58 12/19/22 05:00 Temperature 97.3 F L Pulse Rate 76 86 Respiratory Rate 24 24 Blood Pressure 158/70 H Pulse Oximetry 93 93 Oxygen Delivery Method Oxygen Flow Rate 45 12/19/22 05:00 12/19/22 05:00 12/19/22 06:00 Temperature Pulse Rate 86 Respiratory Rate 15 Blood Pressure 160/71 H Pulse Oximetry 92 Oxygen Delivery Method Heated High Flow Oxygen Flow Rate 45 12/19/22 06:00 12/19/22 06:20 12/19/22 07:00 Temperature Pulse Rate 80 78 Respiratory Rate 10 L 12 Blood Pressure 163/74 H Pulse Oximetry 97 97 Oxygen Delivery Method Oxygen Flow Rate 45 12/19/22 07:00 Temperature Pulse Rate 99 H Respiratory Rate 24 Blood Pressure Pulse Oximetry 95 Oxygen Delivery Method Oxygen Flow Rate Fraction of Inspired Oxygen 40 SaO2/FiO2 Ratio 227 Oxygen Delivery Method Heated High Flow Oxygen Flow Rate 45 Narrative Exam Narrative: GEN: no acute distress, on HFNC with wet cough HEENT: moist mucous membranes, PERRL NECK: trachea midline, no JVD CV: regular rate and rhythm, no murmurs PULM: extensive crackles of left lung base, no wheezes ABD: soft, nontender, nondistended, no organomegaly EXT: warm and well perfused with no edema NEURO: awake, alert, oriented, no focal deficits Objective Labs 12/19/22 04:40 12/19/22 04:40 Labs: Laboratory Results - last 24 hr 12/18/22 12/18/22 12/18/22 13:30 13:30 13:30 WBC 7.8 RBC 4.52 Hgb 13.4 Hct 39.2 MCV 86.8 MCH 29.6 MCHC 34.1 RDW 13.8 Plt Count 268 Neut % (Auto) 73.5 Lymph % (Auto) 12.[address] [place] % (Auto) 11.8 Eos % (Auto) 1.2 L Baso % (Auto) 0.8 Neut # (Auto) 5700 Lymph # (Auto) [address] [place] # (Auto) 900 Eos # (Auto) 100 Baso # (Auto) 100 PT 14.2 H INR 1.2 APTT D-Dimer 2675 H ABG pH ABG pCO2 ABG pO2 ABG HCO3 ABG Total CO2 ABG O2 Saturation ABG Base Excess FiO2 Sodium 134 L Potassium 3.9 Chloride 100 Carbon Dioxide 26 BUN 14 Creatinine 0.75 Estimated GFR > 60 BUN/Creatinine Ratio 18.7 Glucose 123 H Lactate Calcium 8.6 Magnesium Total Bilirubin 0.5 AST 41 H ALT 46 H Alkaline Phosphatase 96 Total Creatine Kinase 154 H Troponin I < 0.012 NT-Pro-B Natriuret Pep 192 Total Protein 7.6 Albumin 3.9 Globulin 3.7 Albumin/Globulin Ratio 1.1 Procalcitonin 0.14 Urine RBC Urine WBC Ur Squamous Epith Cells Urine Bacteria Nasal Screen MRSA (PCR) Chlamy pneumoniae PCR Adenovirus (PCR) B. pertussis DNA (PCR) B.parapertussis DNA PCR Coronavirus OC43 (PCR) Coronavirus HKU1 (PCR) Coronavirus 229E (PCR) SARS-CoV-2 (PCR) Coronavirus NL63 (PCR) Human Metapneumovir PCR Influenza Type A (PCR) Influenza Type B (PCR) M. pneumoniae (PCR) Parainfluenza 1 (PCR) Parainfluenza 2 (PCR) Parainfluenza 3 (PCR) Parainfluenza 4 (PCR) RSV (PCR) Entero/Rhino (PCR) 12/18/22 12/18/22 12/18/22 13:30 13:30 13:30 WBC RBC Hgb Hct MCV MCH MCHC RDW Plt Count Neut % (Auto) Lymph % (Auto) [place] % (Auto) Eos % (Auto) Baso % (Auto) Neut # (Auto) Lymph # (Auto) [place] # (Auto) Eos # (Auto) Baso # (Auto) PT INR APTT 30 D-Dimer ABG pH ABG pCO2 ABG pO2 ABG HCO3 ABG Total CO2 ABG O2 Saturation ABG Base Excess FiO2 Sodium Potassium Chloride Carbon Dioxide BUN Creatinine Estimated GFR BUN/Creatinine Ratio Glucose Lactate 1.1 Calcium Magnesium Total Bilirubin AST ALT Alkaline Phosphatase Total Creatine Kinase Troponin I NT-Pro-B Natriuret Pep Total Protein Albumin Globulin Albumin/Globulin Ratio Procalcitonin Urine RBC Urine WBC Ur Squamous Epith Cells Urine Bacteria Nasal Screen MRSA (PCR) Chlamy pneumoniae PCR Not detected Adenovirus (PCR) Not detected B. pertussis DNA (PCR) Not detected B.parapertussis DNA PCR Not detected Coronavirus OC43 (PCR) Not detected Coronavirus HKU1 (PCR) Not detected Coronavirus 229E (PCR) Not detected SARS-CoV-2 (PCR) Not detected Coronavirus NL63 (PCR) Not detected Human Metapneumovir PCR Not detected Influenza Type A (PCR) Not detected Influenza Type B (PCR) Not detected M. pneumoniae (PCR) Not detected Parainfluenza 1 (PCR) Not detected Parainfluenza 2 (PCR) Not detected Parainfluenza 3 (PCR) Not detected Parainfluenza 4 (PCR) Not detected RSV (PCR) Not detected Entero/Rhino (PCR) Not detected 12/18/22 12/18/22 12/18/22 13:30 15:01 16:36 WBC RBC Hgb Hct MCV MCH MCHC RDW Plt Count Neut % (Auto) Lymph % (Auto) [place] % (Auto) Eos % (Auto) Baso % (Auto) Neut # (Auto) Lymph # (Auto) [place] # (Auto) Eos # (Auto) Baso # (Auto) PT INR APTT D-Dimer ABG pH 7.49 H ABG pCO2 30.3 L ABG pO2 72 L ABG HCO3 23 ABG Total CO2 24 ABG O2 Saturation 96 ABG Base Excess 0.0 FiO2 40 Sodium Potassium Chloride Carbon Dioxide BUN Creatinine Estimated GFR BUN/Creatinine Ratio Glucose Lactate Calcium Magnesium 2.5 H Total Bilirubin AST ALT Alkaline Phosphatase Total Creatine Kinase Troponin I NT-Pro-B Natriuret Pep Total Protein Albumin Globulin Albumin/Globulin Ratio Procalcitonin Urine RBC 0-1/hpf Urine WBC 0-1/hpf Ur Squamous Epith Cells 0-1 /hpf Urine Bacteria None seen Nasal Screen MRSA (PCR) Chlamy pneumoniae PCR Adenovirus (PCR) B. pertussis DNA (PCR) B.parapertussis DNA PCR Coronavirus OC43 (PCR) Coronavirus HKU1 (PCR) Coronavirus 229E (PCR) SARS-CoV-2 (PCR) Coronavirus NL63 (PCR) Human Metapneumovir PCR Influenza Type A (PCR) Influenza Type B (PCR) M. pneumoniae (PCR) Parainfluenza 1 (PCR) Parainfluenza 2 (PCR) Parainfluenza 3 (PCR) Parainfluenza 4 (PCR) RSV (PCR) Entero/Rhino (PCR) 12/18/22 12/19/22 12/19/22 17:37 04:40 04:40 WBC 5.2 RBC 4.51 Hgb 13.4 Hct 39.3 MCV 87.0 MCH 29.7 MCHC 34.1 RDW 13.7 Plt Count 275 Neut % (Auto) 66.6 Lymph % (Auto) 22.[address] [place] % (Auto) 11.2 Eos % (Auto) 0.0 L Baso % (Auto) 0.1 Neut # (Auto) 3500 Lymph # (Auto) 1200 [place] # (Auto) 600 Eos # (Auto) 0 Baso # (Auto) 0 PT INR APTT D-Dimer ABG pH ABG pCO2 ABG pO2 ABG HCO3 ABG Total CO2 ABG O2 Saturation ABG Base Excess FiO2 Sodium 140 Potassium 3.7 Chloride 106 Carbon Dioxide 24 BUN 16 Creatinine 0.70 Estimated GFR > 60 BUN/Creatinine Ratio 22.9 H Glucose 137 H Lactate Calcium 8.6 Magnesium Total Bilirubin AST ALT Alkaline Phosphatase Total Creatine Kinase Troponin I NT-Pro-B Natriuret Pep Total Protein Albumin Globulin Albumin/Globulin Ratio Procalcitonin 0.11 Urine RBC Urine WBC Ur Squamous Epith Cells Urine Bacteria Nasal Screen MRSA (PCR) Not detected Chlamy pneumoniae PCR Adenovirus (PCR) B. pertussis DNA (PCR) B.parapertussis DNA PCR Coronavirus OC43 (PCR) Coronavirus HKU1 (PCR) Coronavirus 229E (PCR) SARS-CoV-2 (PCR) Coronavirus NL63 (PCR) Human Metapneumovir PCR Influenza Type A (PCR) Influenza Type B (PCR) M. pneumoniae (PCR) Parainfluenza 1 (PCR) Parainfluenza 2 (PCR) Parainfluenza 3 (PCR) Parainfluenza 4 (PCR) RSV (PCR) Entero/Rhino (PCR) [facility] Medical History Other hyperlipidemia (07/11/15) Social History household members: spouse Smoking Status: Never smoker Assessment & Plan Assessment & Plan narrative: # acute hypoxic respiratory failure -secondary to pneumonia, likely viral as grandson was sick contact 1 week ago -continue high-flow nasal cannula, wean as able -ABG with hypoxia, alkalosis, no hypercarbia -echo with EF 60-60% with diastolic abnormality, mild MR and AR and positive for interatrial shunt, IVC collapses with sniff -added IV solumedrol in case of reactive airway disease component -consider thoracentesis if not improving # community-acquired pneumonia -CTA chest with nodular opacities and dense left lower lobe infiltrate consistent with pneumonia, however interestingly no leukocytosis and procal only 0.14 -Rocephin x5 days and azithromycin x3 days -sputum culture pending -Mucinex, Tessalon Perles and DuoNebs as needed -respiratory PCR negative # recent UTI -completed course of Cipro -UA negative # prior breast cancer -continue home anastrozole # hyperlipidemia -continue home statin Code status is Full code. DVT prophylaxis with Lovenox. Proxy is Yrn. I have reviewed home meds and used all available resources to reconcile the home meds. I spent a total of 35 minutes of critical care time on this patient's care today; this time is exclusive of procedural time. This patient will be admitted as ICU and will require greater than 2 midnights of hospital time to treat hypoxic respiratory failure secondary to pneumonia. Quality VTE Deep Vein Thrombosis/Pulmonary Embolism Present on Admission: No
[2022-12-19] MEDS: FLUTICASONE 120 SPRAY/16 GM SPRAY.SUSP NASAL (08:17)
[2022-12-19] MEDS: ENOXAPARIN 40 MG/0.4 ML SYRINGE SUBCUT (08:17)
[2022-12-19] MEDS: guaiFENesin ER 600 MG TAB PO ×2 (08:18→20:24)
[2022-12-19] MEDS: AZITHROMYCIN 250 MG TABLET 500 MG PO (08:18)
[2022-12-19] MEDS: FAMOTIDINE 20 MG/2 ML VIAL IV ×2 (08:18→20:24)
[2022-12-19] MEDS: CALCIUM CARBONATE 500 MG TAB PO ×2 (08:20→20:24)
[2022-12-19] MEDS: methylPREDNISolone 125 MG/2 ML VIAL 60 MG IV ×2 (08:21→20:24)
--- NOTE | 2022-12-19 09:44 | DI.ECHO.S_ITS ---
[facility] +---------+ : : [address] : : : : [id number] : : : : Phone: [phone]+ Echocardiogram Report + + :Name: XOCHITL SOTELO Study Date: 12/19/2022 Height: 67 in : [facility] ReadingLocation: Weight: 198 lb : : Gender: Female BSA: 2.0 m2 : :: 1945 Age: 77 yrs BP: 166/74 mmHg: :Reason For Study: HYPOXIC, BUBBLE STUDY : :Ordering Physician: MARIA A, : :ELISE Ruiz Performed By: Precious So : :Referring: ELISE SAHA : + + Interpretation Summary The ejection fraction is estimated to be 60-65%. Diastolic parameters suggest probable normal left ventricular diastolic function and normal filling pressures. Injection of contrast documented an interatrial shunt. There is mild mitral regurgitation. There is mild aortic regurgitation. Pulmonary artery pressures cannot be estimated because of the lack of a measurable TR jet velocity. Procedure: A two-dimensional transthoracic echocardiogram with color flow and Doppler was performed. The study quality was technically adequate. Comparison is made with the echocardiogram of 09/09/2017. A saline contrast injection was performed to assess for cardiac shunting. The injection was performed through an intravenous line in the right arm. The patient was in sinus rhythm with heart rates between 80-87 bpm during the exam. Left Ventricle: The left ventricle is normal in size and wall thickness. The ejection fraction is estimated to be 60-65%. Diastolic parameters suggest probable normal left ventricular diastolic function and normal filling pressures. Right Ventricle: The right ventricle is normal in size and function. Atria: The left atrial size is normal. Right atrial size is normal. Injection of contrast documented an interatrial shunt. Mitral Valve: The mitral valve is normal. There is mild mitral regurgitation. Aortic Valve: The aortic valve is trileaflet. The aortic valve opens well. There is no aortic valve stenosis. There is mild aortic regurgitation. Tricuspid Valve: The tricuspid valve is normal in structure and function. There is trace tricuspid regurgitation. Pulmonary artery pressures cannot be estimated because of the lack of a measurable TR jet velocity. Pulmonic Valve: The pulmonic valve leaflets are thin and pliable; valve motion is normal. There is no pulmonic valvular regurgitation. Great Vessels: The aortic root is normal size. The ascending aorta could not be visualized. The IVC is of normal diameter and collapses greater than 50% with a sniff. This suggests a low right atrial pressure of 3 mm Hg. Pericardium/ Pleura There is no pericardial effusion. There is no pleural effusion. MMode/2D Measurements & Calculations LVIDd: 4.5 cm LVOT diam: 1.9 cm LVIDs: 2.8 cm Ao root diam: 3.0 cm FS: 36.7 % EPSS: 0.54 cm IVSd: 0.94 cm LVPWd: 0.75 cm LV murillo. diameter/BSA (cm/m^2): 2.2 LV sys. diameter/BSA (cm/m^2): 1.4 LA A2 area: 16.9 cm2 RA long axis: 4.4 cm LA A4 area: 14.1 cm2 RA area: 12.7 cm2 LA length (vol): 4.6 cm RA vol: 31.0 ml LA vol: 44.4 ml RA : 15.4 ml/m2 LA vol index: 22.0 ml/m2 IVC diam: 1.9 cm RVD1 (basal): 4.2 cm RVD2 (mid): 2.9 cm TAPSE: 1.9 cm Doppler Measurements & Calculations Ao V2 max: 153.5 cm/sec LVOT Max Ellis: 128.8 cm/sec Ao V2 mean: 109.8 cm/sec LV V1 max P.6 mmHg Ao max P.4 mmHg LV V1 VTI: 24.4 cm Ao mean P.3 mmHg KAN(I,D): 2.6 cm2 Ao V2 VTI: 26.3 cm KAN(V,D): 2.4 cm2 sev ratio: 0.93 KAN indexed to BSA (cm^2/m^2): 1.3 MV E max ellis: 74.5 cm/sec PA V2 max: 101.7 cm/sec MV A max ellis: 102.2 cm/sec PA V2 mean: 72.0 cm/sec MV E/A: 0.73 PA mean P.3 mmHg Med Peak E' Ellis: 6.1 cm/sec PA pr(Accel): 43.0 mmHg E/E' med: 12.3 Lat Peak E' Ellis: 8.1 cm/sec E/E' lat: 9.2 E/e' average: 10.8 MV dec time: 0.33 sec Pulm A Revs Ellis: 24.7 cm/sec SV(LVOT): 69.2 ml Pulm A Revs Dur: 0.12 sec Reading Physician:01:18 PM
--- NOTE | 2022-12-19 09:48 | P.TELICUPN_ITS ---
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 Santiago Interval history: no acute events overnight Current Medications Current Medications Medications: Home Medications anastrozole 1 mg tablet (Arimidex) 1 mg PO BEDTIME 11/20/20 [History Confirmed 0 12/18/22] ibuprofen 400 mg tablet 400 mg PO Q6H PRN pain 11/20/20 [History Confirmed 12/18/22] multivitamin (Multiple Vitamins tablet) 1 tab PO DAILY 11/20/20 [History Confirmed 12/18/22] pravastatin 40 mg tablet 40 mg PO Q EVENING #90 tabs 01/30/22 [Rx Confirmed 12/18/22] triamcinolone acetonide 0.1 % topical cream 1 applic topical DAILY #30 grams 03/11/22 [Rx Confirmed 12/18/22] fluticasone furoate 27.5 mcg/actuation nasal spray,suspension 2 spray intranasal DAILY #9.1 mL 12/11/22 [Rx Confirmed 12/18/22] calcium citrate 500 mg PO BID 12/18/22 [History Confirmed 12/18/22] Visit Medications (administered) Generic Name Dose Route Start Last Admin Trade Name Christopherq PRN Reason Stop Dose Admin Anastrozole 1 mg 12/18/22 21:00 12/18/22 21:00 Anastrozole 1 Mg Tablet PO 1 mg 2100 ERASMO Administration Azithromycin 500 mg 12/18/22 16:45 12/19/22 08:18 Azithromycin 250 Mg Tablet PO 12/20/22 09:01 500 mg DAILY ERASMO Administration Calcium Carbonate 500 mg 12/18/22 21:00 12/19/22 08:20 Calcium Carbonate 500 Mg Tab PO 500 mg BID ERASMO Administration Enoxaparin Sodium 40 mg 12/18/22 16:45 12/19/22 08:17 Enoxaparin 40 Mg/0.4 Ml Syringe SUBCUT 40 mg DAILY ERASMO Administration Famotidine 20 mg 12/18/22 21:00 12/19/22 08:18 Famotidine 20 Mg/2 Ml Vial IV 20 mg BID ERASMO Administration Fluticasone Propionate 2 spray 12/19/22 09:00 12/19/22 08:17 Fluticasone 120 [place]/16 Gm [place].Susp NASAL 2 spray DAILY ERASMO Administration Guaifenesin 600 mg 12/18/22 16:45 12/19/22 08:18 Guaifenesin Er 600 Mg Tab PO 600 mg BID ERASMO Administration Ceftriaxone Sodium 2,000 mg/ 100 mls @ 200 mls/hr 12/18/22 17:45 12/18/22 19:29 Sodium Chloride IV 12/22/22 18:14 Infused Q24H ERASMO Infusion Methylprednisolone 60 mg 12/19/22 07:45 12/19/22 08:21 Methylprednisolone 125 Mg/2 Ml Vial IV 60 mg Q12H ERASMO Administration Pravastatin Sodium 40 mg 12/18/22 21:00 12/18/22 21:00 Pravastatin 20 Mg Tablet PO 40 mg BEDTIME ERASMO Administration Sodium Chloride 10 ml 12/18/22 21:01 12/18/22 21:02 Sodium Chloride 0.9% Flush IV 10 ml PRN PRN Administration keep IV patent Objective Ventilator Parameters: Ventilator Settings FiO2 45 Labs 12/19/22 04:40 12/19/22 04:40 Labs: Laboratory Results - last 24 hr 12/18/22 12/18/22 12/18/22 13:30 13:30 13:30 WBC 7.8 RBC 4.52 Hgb 13.4 Hct 39.2 MCV 86.8 MCH 29.6 MCHC 34.1 RDW 13.8 Plt Count 268 Neut % (Auto) 73.5 Lymph % (Auto) 12.7 L [place] % (Auto) 11.8 Eos % (Auto) 1.2 L Baso % (Auto) 0.8 Neut # (Auto) 5700 Lymph # (Auto) 1000 L [place] # (Auto) 900 Eos # (Auto) 100 Baso # (Auto) 100 PT 14.2 H INR 1.2 APTT D-Dimer 2675 H ABG pH ABG pCO2 ABG pO2 ABG HCO3 ABG Total CO2 ABG O2 Saturation ABG Base Excess FiO2 Sodium 134 L Potassium 3.9 Chloride 100 Carbon Dioxide 26 BUN 14 Creatinine 0.75 Estimated GFR > 60 BUN/Creatinine Ratio 18.7 Glucose 123 H Lactate Calcium 8.6 Magnesium Total Bilirubin 0.5 AST 41 H ALT 46 H Alkaline Phosphatase 96 Total Creatine Kinase 154 H Troponin I < 0.012 NT-Pro-B Natriuret Pep 192 Total Protein 7.6 Albumin 3.9 Globulin 3.7 Albumin/Globulin Ratio 1.1 Procalcitonin 0.14 Urine RBC Urine WBC Ur Squamous Epith Cells Urine Bacteria Nasal Screen MRSA (PCR) Chlamy pneumoniae PCR Adenovirus (PCR) B. pertussis DNA (PCR) B.parapertussis DNA PCR Coronavirus OC43 (PCR) Coronavirus HKU1 (PCR) Coronavirus 229E (PCR) SARS-CoV-2 (PCR) Coronavirus NL63 (PCR) Human Metapneumovir PCR Influenza Type A (PCR) Influenza Type B (PCR) M. pneumoniae (PCR) Parainfluenza 1 (PCR) Parainfluenza 2 (PCR) Parainfluenza 3 (PCR) Parainfluenza 4 (PCR) RSV (PCR) Entero/Rhino (PCR) 12/18/22 12/18/22 12/18/22 13:30 13:30 13:30 WBC RBC Hgb Hct MCV MCH MCHC RDW Plt Count Neut % (Auto) Lymph % (Auto) [place] % (Auto) Eos % (Auto) Baso % (Auto) Neut # (Auto) Lymph # (Auto) [place] # (Auto) Eos # (Auto) Baso # (Auto) PT INR APTT 30 D-Dimer ABG pH ABG pCO2 ABG pO2 ABG HCO3 ABG Total CO2 ABG O2 Saturation ABG Base Excess FiO2 Sodium Potassium Chloride Carbon Dioxide BUN Creatinine Estimated GFR BUN/Creatinine Ratio Glucose Lactate 1.1 Calcium Magnesium Total Bilirubin AST ALT Alkaline Phosphatase Total Creatine Kinase Troponin I NT-Pro-B Natriuret Pep Total Protein Albumin Globulin Albumin/Globulin Ratio Procalcitonin Urine RBC Urine WBC Ur Squamous Epith Cells Urine Bacteria Nasal Screen MRSA (PCR) Chlamy pneumoniae PCR Not detected Adenovirus (PCR) Not detected B. pertussis DNA (PCR) Not detected B.parapertussis DNA PCR Not detected Coronavirus OC43 (PCR) Not detected Coronavirus HKU1 (PCR) Not detected Coronavirus 229E (PCR) Not detected SARS-CoV-2 (PCR) Not detected Coronavirus NL63 (PCR) Not detected Human Metapneumovir PCR Not detected Influenza Type A (PCR) Not detected Influenza Type B (PCR) Not detected M. pneumoniae (PCR) Not detected Parainfluenza 1 (PCR) Not detected Parainfluenza 2 (PCR) Not detected Parainfluenza 3 (PCR) Not detected Parainfluenza 4 (PCR) Not detected RSV (PCR) Not detected Entero/Rhino (PCR) Not detected 12/18/22 12/18/22 12/18/22 13:30 15:01 16:36 WBC RBC Hgb Hct MCV MCH MCHC RDW Plt Count Neut % (Auto) Lymph % (Auto) [place] % (Auto) Eos % (Auto) Baso % (Auto) Neut # (Auto) Lymph # (Auto) [place] # (Auto) Eos # (Auto) Baso # (Auto) PT INR APTT D-Dimer ABG pH 7.49 H ABG pCO2 30.3 L ABG pO2 72 L ABG HCO3 23 ABG Total CO2 24 ABG O2 Saturation 96 ABG Base Excess 0.0 FiO2 40 Sodium Potassium Chloride Carbon Dioxide BUN Creatinine Estimated GFR BUN/Creatinine Ratio Glucose Lactate Calcium Magnesium 2.5 H Total Bilirubin AST ALT Alkaline Phosphatase Total Creatine Kinase Troponin I NT-Pro-B Natriuret Pep Total Protein Albumin Globulin Albumin/Globulin Ratio Procalcitonin Urine RBC 0-1/hpf Urine WBC 0-1/hpf Ur Squamous Epith Cells 0-1 /hpf Urine Bacteria None seen Nasal Screen MRSA (PCR) Chlamy pneumoniae PCR Adenovirus (PCR) B. pertussis DNA (PCR) B.parapertussis DNA PCR Coronavirus OC43 (PCR) Coronavirus HKU1 (PCR) Coronavirus 229E (PCR) SARS-CoV-2 (PCR) Coronavirus NL63 (PCR) Human Metapneumovir PCR Influenza Type A (PCR) Influenza Type B (PCR) M. pneumoniae (PCR) Parainfluenza 1 (PCR) Parainfluenza 2 (PCR) Parainfluenza 3 (PCR) Parainfluenza 4 (PCR) RSV (PCR) Entero/Rhino (PCR) 12/18/22 12/19/22 12/19/22 17:37 04:40 04:40 WBC 5.2 RBC 4.51 Hgb 13.4 Hct 39.3 MCV 87.0 MCH 29.7 MCHC 34.1 RDW 13.7 Plt Count 275 Neut % (Auto) 66.6 Lymph % (Auto) 22.1 L [place] % (Auto) 11.2 Eos % (Auto) 0.0 L Baso % (Auto) 0.1 Neut # (Auto) 3500 Lymph # (Auto) 1200 [place] # (Auto) 600 Eos # (Auto) 0 Baso # (Auto) 0 PT INR APTT D-Dimer ABG pH ABG pCO2 ABG pO2 ABG HCO3 ABG Total CO2 ABG O2 Saturation ABG Base Excess FiO2 Sodium 140 Potassium 3.7 Chloride 106 Carbon Dioxide 24 BUN 16 Creatinine 0.70 Estimated GFR > 60 BUN/Creatinine Ratio 22.9 H Glucose 137 H Lactate Calcium 8.6 Magnesium Total Bilirubin AST ALT Alkaline Phosphatase Total Creatine Kinase Troponin I NT-Pro-B Natriuret Pep Total Protein Albumin Globulin Albumin/Globulin Ratio Procalcitonin 0.11 Urine RBC Urine WBC Ur Squamous Epith Cells Urine Bacteria Nasal Screen MRSA (PCR) Not detected Chlamy pneumoniae PCR Adenovirus (PCR) B. pertussis DNA (PCR) B.parapertussis DNA PCR Coronavirus OC43 (PCR) Coronavirus HKU1 (PCR) Coronavirus 229E (PCR) SARS-CoV-2 (PCR) Coronavirus NL63 (PCR) Human Metapneumovir PCR Influenza Type A (PCR) Influenza Type B (PCR) M. pneumoniae (PCR) Parainfluenza 1 (PCR) Parainfluenza 2 (PCR) Parainfluenza 3 (PCR) Parainfluenza 4 (PCR) RSV (PCR) Entero/Rhino (PCR) Exam Vital Signs (past 8 hours): - 12/19/22 02:00 12/19/22 02:00 12/19/22 03:00 Temperature Pulse Rate 83 Respiratory Rate 24 Blood Pressure 137/63 120/59 L Pulse Oximetry 90 L Oxygen Delivery Method Oxygen Flow Rate 45 Fraction of Inspired Oxygen 12/19/22 03:00 12/19/22 02:37 12/19/22 04:00 Temperature Pulse Rate 80 81 Respiratory Rate 24 22 Blood Pressure 134/61 Pulse Oximetry 92 92 Oxygen Delivery Method Oxygen Flow Rate 45 Fraction of Inspired Oxygen 12/19/22 04:00 12/19/22 04:58 12/19/22 05:00 Temperature 97.3 F L Pulse Rate 76 86 Respiratory Rate 24 24 Blood Pressure 158/70 H Pulse Oximetry 93 93 Oxygen Delivery Method Oxygen Flow Rate 45 Fraction of Inspired Oxygen 12/19/22 05:00 12/19/22 05:00 12/19/22 06:00 Temperature Pulse Rate 86 Respiratory Rate 15 Blood Pressure 160/71 H Pulse Oximetry 92 Oxygen Delivery Method Heated High Flow Oxygen Flow Rate 45 Fraction of Inspired Oxygen 12/19/22 06:00 12/19/22 06:20 12/19/22 07:00 Temperature Pulse Rate 80 78 Respiratory Rate 10 L 12 Blood Pressure 163/74 H Pulse Oximetry 97 97 Oxygen Delivery Method Oxygen Flow Rate 45 Fraction of Inspired Oxygen 12/19/22 07:00 12/19/22 07:36 12/19/22 07:41 Temperature Pulse Rate 99 H 99 H 99 H Respiratory Rate 24 20 20 Blood Pressure Pulse Oximetry 95 96 96 Oxygen Delivery Method Heated High Flow Oxygen Flow Rate 45 Fraction of Inspired Oxygen 45 12/19/22 08:00 12/19/22 08:00 12/19/22 09:00 Temperature Pulse Rate 100 H Respiratory Rate 22 Blood Pressure 165/69 H 173/77 H Pulse Oximetry 95 Oxygen Delivery Method Oxygen Flow Rate Fraction of Inspired Oxygen 12/19/22 09:00 Temperature Pulse Rate 103 H Respiratory Rate 23 Blood Pressure Pulse Oximetry 94 Oxygen Delivery Method Oxygen Flow Rate Fraction of Inspired Oxygen Fraction of Inspired Oxygen 45 SaO2/FiO2 Ratio 213 Oxygen Delivery Method Heated High Flow Oxygen Flow Rate 45 Quality TeleICU VTE Deep Vein Thrombosis/Pulmonary Embolism Present on Admission: No Assessment & Plan Assessment & Plan narrative: patient seen chart/labs/imaging reviewed 77 year old female with PMHx of breast CA, HLD admitted to ICU with: acute respiratory failure pneumonia left pleural effusion currently afebrile, HD stable sat 93% on HFnC 40/45% no new significant labs trops -ve x2 plan -avoid opiods/benzos -continue abx -check final cxs -consider IR thoracentesis -keep sat above 92% -check echo w/ bubble study -monitor ins/outs -replace lytes prn -keep glucose 140-180s -gi/dvt ppx -please call eICU if condition changes -d/w Dr. Santiago total ccm time 45 mins
--- NOTE | 2022-12-19 10:33 | DI.RAD.S_ITS ---
PROCEDURE: XR CHEST 1V INDICATIONS: choked on danish toast, hypoxic TECHNIQUE: One view of the chest was acquired. COMPARISON: [facility], CT, CT ANGIO CHEST PE PROTOCOL, 12/18/2022, 14:33. [facility] ([place]), CR, XR CHEST 2V, 12/18/2022, 11:46. [facility] ([place]), CR, XR CHEST 2V, 12/11/2022, 16:09. FINDINGS: Surgical changes and devices: None. Lungs and pleura: Patchy left basilar airspace opacity with superimposed small left pleural effusion. Mediastinum: Mediastinal contours appear normal. Heart size is normal. Bones and chest wall: No suspicious bony lesions. Overlying soft tissues appear unremarkable. IMPRESSION: Patchy left basilar airspace opacity with superimposed small left pleural effusion. Aspiration not excluded. Dictated by: Hermelindo Barker M.D. on 12/19/2022 at 11:14 Approved by: Hermelindo Barker M.D. on 12/19/2022 at 11:16
--- NOTE | 2022-12-19 10:44 | PC.NURSE ---
1030--pt's HR is sustained at 120; attempted to decrease oxygen in order to wean to nasal cannula; pt is up in chair; she had a choking episode on breakfast this morning; she is afebrile; increased fio2 from 30 to 40%; status report given to Dr Santiago and orders received
--- NOTE | 2022-12-19 10:49 | PC.NURSE ---
1045--CXR done; pt remains up in chair; HR suddenly dropped back to 90s; discussed need for isolation and droplet precautions with pt and ; Dr. Santiago here to see pt and spoke w/ pt and ; corporate technical recruiter here for echo and bubble study; pt back to bed
--- NOTE | 2022-12-19 13:59 | CM.DANOTE ---
Initial DCP Assessment Note Pt is a 77 yo female, resident of [facility], presents with SOB, hypoxia, admitted inpatient for management of resp failure sec to pneumonia, on high flow O2 this morning PCP: Elbert Gamboa Payer: [employer] Reviewed chart, pt discussed in multidisciplinary rounds this morning. Patient is eager to return home, will likely be here for at least an additional 24-48 hrs Met w/patient to introduce self and role. Patient disappointed she has to be in the hospital while her children and grandchildren were visiting (headed home today) says he is indp at her baseline and has her to get her home and look after her upon discharge and throughout her recovery No barriers identified at this time to patient's safe discharge home w/family to assist; close outpatient f/u recommended CM team will plan to follow closely in case any DC needs or concerns arise, may benefit from HH RN upon discharge however may not be homebound ELBA Torres Discharge Planning/Care Management Advanced directive, confirm from FAMILY Start: 12/18/22 18:07 Freq: Q24H Status: Active Protocol: Document 12/18/22 18:07 MW (Rec: 12/18/22 18:53 MW [id number]) Advance Directive, confirm on record Time 17:30 Person contacted Hussain Trammell Copy received No CM Discharge Assessment Start: 12/19/22 13:57 Freq: Status: Active Protocol: Document 12/19/22 13:57 OTILIA (Rec: 12/19/22 13:59 [id number]) Discharge Planning Assessment Assigned Other Sports Official ELBA Castle DPOA/Assigned Designee Name Yrn Trammell, spouse Contact Information [phone] Advance Directives? Yes Advance Directives on File No History Provided By Patient Prior Living Arrangements House Household Members spouse Type of transporation used prior to Drives own vehicle admit Independent with ADL's Yes Is patient alert and oriented? Yes Barriers to Discharge No Comment Patient plans to return home w /her spouse to assist throughout her recovery Discharge Plan Home Transportation Arrangement Spouse Referrals Initiated None needed Additional Comment r/o need for HH closer to DC
[2022-12-19] MEDS: cefTRIAXone 2,000 MG in SODIUM CHLORIDE 0.9% 100 ML 200 MG IV (17:24)
--- NOTE | 2022-12-19 17:46 | DI.US.S_ITS ---
PROCEDURE: US CHEST COMPARISON: [facility], CR, XR CHEST 1V, 12/19/2022, 10:32. INDICATIONS: RULE OUT PARAPNEUMONIC EFFUSION FINDINGS: A small left pleural effusion is present. IMPRESSION: Small Left pleural effusion is present. Dictated by: Jesse Gil M.D. on 12/19/2022 at 18:56 Approved by: Jesse Gil M.D. on 12/19/2022 at 18:57
--- NOTE | 2022-12-19 17:46 | PC.NURSE ---
1739--Dr Santiago here to see pt; spoke w/ pt and about thoracentesis; questions answered; pt in agreement
--- NOTE | 2022-12-19 18:11 | PC.NURSE ---
1809--US here to evaluate size of pleural effusion and need for thoracentesis
[2022-12-19] MEDS: ANASTROZOLE 1 MG TABLET PO (20:24)
[2022-12-19] MEDS: PRAVASTATIN 20 MG TABLET 40 MG PO (20:24)
--- NOTE | 2022-12-19 20:45 | PM.ICURNDS ---
- Date Patient Seen: 12/19/22 Time Patient Seen: 20:45 :: This patient was seen via real time interactive two-way audiovisual telecommunication. Note: no acute events during the day wean fi02 continue current care
[2022-12-20] VITALS (33 sets, daily range): BP systolic 126–184; BP diastolic 61–83; PULSE 70–100; RESP 7–36; TEMP 36.3–36.8; O2SAT 86–98
[2022-12-20 04:25] LABS: BUN Creatinine Ratio 34.4 (6-22); Blood Urea Nitrogen 21 mg/dL (7-17); Calcium 9.1 mg/dL (8.4-10.2); Carbon Dioxide 22 mmol/L (22-32); Chloride 108 mmol/L (98-107); Estimated Glomerular Filt Rate > 60 mL/min (>60); Glucose 132 mg/dL (80-110); HEMOLYSIS 42 (0-50); Potassium 4.3 mmol/L (3.4-5.1); Sodium 140 mmol/L (137-145)
[2022-12-20 06:24] LABS: Add Manual Diff / Slide Review NO; Basophils Absolute Auto 100 /uL (0-100); Basophils Percent Auto 0.6 % (0-2); Eosinophils Absolute Auto 0 /uL (0-450); Eosinophils Percent Auto 0.1 % (2-4); Hematocrit 40.7 % (36-46); Hemoglobin 13.6 g/dL (12.0-16.0); Lymphocytes Absolute Auto 1500 /uL (1100-4500); Lymphocytes Percent Auto 13.5 % (25-40); Mean Corpuscular HGB Conc 33.4 % (30-36); Mean Corpuscular Hemoglobin 29.3 PG (26-34); Mean Corpuscular Volume 87.7 fL (80-100); Monocytes Absolute Auto 500 /uL (0-900); Monocytes Percent Auto 4.7 % (3-14); Neutrophils Absolute Auto 9100 /uL (1500-7000); Neutrophils Percent Auto 81.1 % (50-75); Platelet Count 325 X10^3/uL (150-400); Red Blood Cell Count 4.65 X10^6/uL (4.0-5.2); Red Cell Distribution Width 14.3 % (11.6-14.8); White Blood Cell Count 11.2 X10^3/uL (4.5-11.0)
[2022-12-20] MEDS: methylPREDNISolone 125 MG/2 ML VIAL 60 MG IV ×2 (08:16→21:01)
[2022-12-20] MEDS: FAMOTIDINE 20 MG/2 ML VIAL IV (08:17)
[2022-12-20] MEDS: CALCIUM CARBONATE 500 MG TAB PO ×2 (08:18→21:02)
[2022-12-20] MEDS: ENOXAPARIN 40 MG/0.4 ML SYRINGE SUBCUT (08:18)
[2022-12-20] MEDS: AZITHROMYCIN 250 MG TABLET 500 MG PO (08:18)
[2022-12-20] MEDS: guaiFENesin ER 600 MG TAB PO ×2 (08:18→21:02)
[2022-12-20] MEDS: FLUTICASONE 120 SPRAY/16 GM SPRAY.SUSP NASAL (08:20)
[2022-12-20] MEDS: carvediloL 3.125 MG TABLET PO ×2 (12:51→21:02)
[2022-12-20] MEDS: LACTOBACILLUS ACIDOPHILUS TABLET 1 EACH PO (12:52)
--- NOTE | 2022-12-20 15:46 | P.PN_ITS ---
Subjective Subjective Interval history: Patient weaned to 5L NC overnight. She is feeling better overall. Started having watery diarrhea this morning. C. diff ordered. Exam Vital Signs (past 8 hours): - 12/20/22 08:00 12/20/22 08:00 12/20/22 08:01 Temperature Pulse Rate 85 81 Respiratory Rate 35 H 36 H Blood Pressure 182/83 H Pulse Oximetry 93 93 Oxygen Delivery Method Oxygen Flow Rate 12/20/22 08:01 12/20/22 08:36 12/20/22 08:36 Temperature Pulse Rate 82 Respiratory Rate 32 H Blood Pressure 171/72 H 173/82 H Pulse Oximetry 92 Oxygen Delivery Method Oxygen Flow Rate 12/20/22 09:00 12/20/22 09:00 12/20/22 10:00 Temperature Pulse Rate 91 H Respiratory Rate 19 Blood Pressure 154/68 H 158/68 H Pulse Oximetry 92 Oxygen Delivery Method Oxygen Flow Rate 12/20/22 10:00 12/20/22 09:00 12/20/22 11:20 Temperature Pulse Rate 94 H Respiratory Rate 24 Blood Pressure Pulse Oximetry 95 95 Oxygen Delivery Method High Flow Nasal Cannula High Flow Nasal Cannula Oxygen Flow Rate 6 12/20/22 11:00 12/20/22 11:00 12/20/22 12:00 Temperature Pulse Rate 95 H Respiratory Rate 27 H Blood Pressure 162/67 H 153/67 H Pulse Oximetry 94 Oxygen Delivery Method Oxygen Flow Rate 12/20/22 12:00 12/20/22 12:51 12/20/22 13:00 Temperature 97.8 F Pulse Rate 89 95 H 100 H Respiratory Rate 24 Blood Pressure 153/67 H Pulse Oximetry 92 93 Oxygen Delivery Method Oxygen Flow Rate 12/20/22 13:01 12/20/22 13:01 12/20/22 14:00 Temperature Pulse Rate 97 H Respiratory Rate Blood Pressure 178/74 H 151/68 H Pulse Oximetry 86 L Oxygen Delivery Method Oxygen Flow Rate 12/20/22 14:00 12/20/22 15:00 12/20/22 15:00 Temperature 98 F Pulse Rate 89 87 Respiratory Rate 17 Blood Pressure 137/63 Pulse Oximetry 93 93 Oxygen Delivery Method Oxygen Flow Rate Fraction of Inspired Oxygen 45 SaO2/FiO2 Ratio 213 Oxygen Delivery Method High Flow Nasal Cannula Oxygen Flow Rate 6 Narrative Exam Narrative: GEN: no acute distress, on NC HEENT: moist mucous membranes, PERRL NECK: trachea midline, no JVD CV: regular rate and rhythm, no murmurs PULM: extensive crackles of left lung base, no wheezes ABD: soft, nontender, nondistended, no organomegaly EXT: warm and well perfused with no edema NEURO: awake, alert, oriented, no focal deficits Objective Labs 12/20/22 06:03 12/20/22 03:55 Labs: Laboratory Results - last 24 hr 12/20/22 12/20/22 03:55 06:03 WBC 11.2 H D RBC 4.65 Hgb 13.6 Hct 40.7 MCV 87.7 MCH 29.3 MCHC 33.4 RDW 14.3 Plt Count 325 Neut % (Auto) 81.1 H Lymph % (Auto) 13.5 L [place] % (Auto) 4.7 Eos % (Auto) 0.1 L Baso % (Auto) 0.6 Neut # (Auto) 9100 H Lymph # (Auto) 1500 [place] # (Auto) 500 Eos # (Auto) 0 Baso # (Auto) 100 Sodium 140 Potassium 4.3 Chloride 108 H Carbon Dioxide 22 BUN 21 H Creatinine 0.61 Estimated GFR > 60 BUN/Creatinine Ratio 34.4 H Glucose 132 H Calcium 9.1 PFSH Medical History Other hyperlipidemia (07/11/15) Social History household members: spouse Smoking Status: Never smoker Assessment & Plan Assessment & Plan narrative: # acute hypoxic respiratory failure, improving -secondary to pneumonia, likely viral as grandson was sick contact 1 week ago -continue high-flow nasal cannula, wean as able -ABG with hypoxia, alkalosis, no hypercarbia -echo with EF 60-60% with diastolic abnormality, mild MR and AR and positive for interatrial shunt, IVC collapses with sniff -added IV solumedrol in case of reactive airway disease component -pleural US shows not enough fluid to tap -patient now improving and weaned to 5L NC, off high flow -downgraded from ICU status # community-acquired pneumonia -CTA chest with nodular opacities and dense left lower lobe infiltrate consistent with pneumonia, however interestingly no leukocytosis and procal only 0.14 -Rocephin x7 days and azithromycin x3 days -sputum culture with very early growth -Mucinex, Tessalon Perles and DuoNebs as needed -respiratory PCR negative # watery diarrhea, not present on admission -began having watery stools on 12/20 -check C. diff -start daily probiotic # recent UTI -completed course of Cipro -UA negative # prior breast cancer -continue home anastrozole # hyperlipidemia -continue home statin # HTN -patient not on BP meds, but says her BP has been 140-150's systolic at home -here in the hospital she is 160-170's -start coreg BID Code status is Full code. DVT prophylaxis with Lovenox. Proxy is Yrn. Dispo: Home in 1-2 days. Quality VTE Deep Vein Thrombosis/Pulmonary Embolism Present on Admission: No
[2022-12-20] MEDS: cefTRIAXone 2,000 MG in SODIUM CHLORIDE 0.9% 100 ML 200 MG IV (17:32)
[2022-12-20] MEDS: ANASTROZOLE 1 MG TABLET PO (21:02)
[2022-12-20] MEDS: PRAVASTATIN 20 MG TABLET 40 MG PO (21:02)
[2022-12-20] MEDS: FAMOTIDINE 20 MG TABLET PO (21:03)
[2022-12-21] VITALS (8 sets, daily range): BP systolic 149–179; BP diastolic 67–84; PULSE 74–78; RESP 17–20; TEMP 36.3–37.1; O2SAT 90–94
[2022-12-21] MEDS: carvediloL 3.125 MG TABLET 6.25 MG PO ×2 (03:49→08:43)
[2022-12-21 04:26] LABS: Add Manual Diff / Slide Review NO; Basophils Absolute Auto 0 /uL (0-100); Basophils Percent Auto 0.1 % (0-2); Eosinophils Absolute Auto 0 /uL (0-450); Hemoglobin 13.1 g/dL (12.0-16.0); Lymphocytes Absolute Auto 1100 /uL (1100-4500); Lymphocytes Percent Auto 11.8 % (25-40); Mean Corpuscular HGB Conc 33.5 % (30-36); Mean Corpuscular Hemoglobin 29.5 PG (26-34); Mean Corpuscular Volume 87.9 fL (80-100); Monocytes Absolute Auto 300 /uL (0-900); Neutrophils Absolute Auto 7900 /uL (1500-7000); Neutrophils Percent Auto 85.1 % (50-75); Platelet Count 325 X10^3/uL (150-400); Red Blood Cell Count 4.44 X10^6/uL (4.0-5.2); Red Cell Distribution Width 14.1 % (11.6-14.8); White Blood Cell Count 9.2 X10^3/uL (4.5-11.0)
[2022-12-21 04:35] LABS: Blood Urea Nitrogen 21 mg/dL (7-17); Calcium 8.9 mg/dL (8.4-10.2); Carbon Dioxide 25 mmol/L (22-32); Chloride 106 mmol/L (98-107); Estimated Glomerular Filt Rate > 60 mL/min (>60); Glucose 131 mg/dL (80-110); HEMOLYSIS < 15 (0-50); Potassium 4.4 mmol/L (3.4-5.1); Sodium 141 mmol/L (137-145)
[2022-12-21] MEDS: FLUTICASONE 120 SPRAY/16 GM SPRAY.SUSP NASAL (08:36)
[2022-12-21] MEDS: LACTOBACILLUS ACIDOPHILUS TABLET 1 EACH PO (08:42)
[2022-12-21] MEDS: methylPREDNISolone 125 MG/2 ML VIAL 60 MG IV (08:42)
[2022-12-21] MEDS: CALCIUM CARBONATE 500 MG TAB PO ×2 (08:42→20:39)
[2022-12-21] MEDS: ENOXAPARIN 40 MG/0.4 ML SYRINGE SUBCUT (08:42)
[2022-12-21] MEDS: guaiFENesin ER 600 MG TAB PO ×2 (08:43→20:38)
[2022-12-21] MEDS: BENZONATATE 100 MG CAPSULE PO (08:43)
[2022-12-21] MEDS: FAMOTIDINE 20 MG TABLET PO ×2 (08:43→20:38)
--- NOTE | 2022-12-21 14:27 | PM.PN.1 ---
Subjective Subjective Interval history: Patient now down to 4L NC. Sputum growing yeast, but per lab it is oval spores so likely contaminant with ramez. Patient's BP still quite elevated so her coreg was increased and losartan added. Home O2 eval ordered. Exam Vital Signs (past 8 hours): - 12/21/22 08:43 12/21/22 08:00 12/21/22 09:33 Pulse Rate 75 Blood Pressure 176/80 H Pulse Oximetry 94 Oxygen Delivery Method Nasal Cannula High Flow Nasal Cannula Oxygen Flow Rate 4 Fraction of Inspired Oxygen 36 Fraction of Inspired Oxygen 36 SaO2/FiO2 Ratio 261 Oxygen Delivery Method High Flow Nasal Cannula Oxygen Flow Rate 4 Narrative Exam Narrative: GEN: no acute distress, on NC HEENT: moist mucous membranes, PERRL NECK: trachea midline, no JVD CV: regular rate and rhythm, no murmurs PULM: extensive crackles of left lung base, no wheezes ABD: soft, nontender, nondistended, no organomegaly EXT: warm and well perfused with no edema NEURO: awake, alert, oriented, no focal deficits Objective Labs 12/21/22 03:12 12/21/22 03:12 Labs: Laboratory Results - last 24 hr 12/21/22 12/21/22 03:12 03:12 WBC 9.2 RBC 4.44 Hgb 13.1 Hct 39.0 MCV 87.9 MCH 29.5 MCHC 33.5 RDW 14.1 Plt Count 325 Neut % (Auto) 85.1 H Lymph % (Auto) 11.8 L [place] % (Auto) 3.0 Eos % (Auto) 0.0 L Baso % (Auto) 0.1 Neut # (Auto) 7900 H Lymph # (Auto) 1100 [place] # (Auto) 300 Eos # (Auto) 0 Baso # (Auto) 0 Sodium 141 Potassium 4.4 Chloride 106 Carbon Dioxide 25 BUN 21 H Creatinine 0.70 Estimated GFR > 60 BUN/Creatinine Ratio 30.0 H Glucose 131 H Calcium 8.9 PFSH Medical History Other hyperlipidemia (07/11/15) Social History household members: spouse Smoking Status: Never smoker Assessment & Plan Assessment & Plan narrative: # acute hypoxic respiratory failure, improving -secondary to pneumonia, likely viral as grandson was sick contact 1 week ago -initially on high-flow nasal cannula -ABG with hypoxia, alkalosis, no hypercarbia -echo with EF 60-60% with diastolic abnormality, mild MR and AR and positive for interatrial shunt, IVC collapses with sniff -added IV solumedrol in case of reactive airway disease component -pleural US shows not enough fluid to tap -patient now improving and weaned to 4L NC -home O2 eval as patient will likely need home oxygen temporarily # community-acquired pneumonia -CTA chest with nodular opacities and dense left lower lobe infiltrate consistent with pneumonia, however interestingly no leukocytosis and procal only 0.14 -Rocephin x7 days and azithromycin x3 days -sputum culture with very early growth -Mucinex, Tessalon Perles and DuoNebs as needed -respiratory PCR negative -sputum culture growing yeast, but per lab is oval so likely ramez contamination # watery diarrhea, not present on admission -began having watery stools on 12/20 -check C. diff -start daily probiotic # recent UTI -completed course of Cipro -UA negative # prior breast cancer -continue home anastrozole # hyperlipidemia -continue home statin # HTN -patient not on BP meds, but says her BP has been 140-150's systolic at home -here in the hospital she is 160-170's -start coreg BID, increased to 12.5 -start losartan 25mg daily Code status is Full code. DVT prophylaxis with Lovenox. Proxy is Yrn. Dispo: Home on 12/22 with home O2. May want HH. Quality VTE Deep Vein Thrombosis/Pulmonary Embolism Present on Admission: No
[2022-12-21] MEDS: cefTRIAXone 2,000 MG in SODIUM CHLORIDE 0.9% 100 ML 200 MG IV (18:16)
[2022-12-21] MEDS: LOSARTAN 25 MG TABLET PO (20:38)
[2022-12-21] MEDS: PRAVASTATIN 20 MG TABLET 40 MG PO (20:38)
[2022-12-21] MEDS: carvediloL 3.125 MG TABLET 12.5 MG PO (20:39)
[2022-12-21] MEDS: ANASTROZOLE 1 MG TABLET PO (20:42)
[2022-12-22 04:27] VITALS: BP 171/79; PULSE 68; RESP 16; TEMP 36.6; O2SAT 92
[2022-12-22] MEDS: guaiFENesin ER 600 MG TAB PO (08:19)
[2022-12-22] MEDS: LACTOBACILLUS ACIDOPHILUS TABLET 1 EACH PO (08:19)
[2022-12-22] MEDS: carvediloL 3.125 MG TABLET 12.5 MG PO (08:19)
[2022-12-22] MEDS: FLUTICASONE 120 SPRAY/16 GM SPRAY.SUSP NASAL (08:20)
[2022-12-22] MEDS: FAMOTIDINE 20 MG TABLET PO (08:20)
[2022-12-22] MEDS: ENOXAPARIN 40 MG/0.4 ML SYRINGE SUBCUT (08:20)
[2022-12-22] MEDS: CALCIUM CARBONATE 500 MG TAB PO (08:20)
[2022-12-22 09:39] VITALS: BP 105/55; PULSE 67; RESP 17; TEMP 36.2; O2SAT 91
--- NOTE | 2022-12-22 10:10 | P.DS_ITS ---
History of Present Illness History of Present Illness Date Patient Seen: 12/22/22 Time Patient Seen: 10:11 Chief complaint: sob, hypoxia Narrative: Per admitting provider, Elaine Hernandez is a 77-year-old female with past medical history of breast cancer s/p lumpectomy on anastrazole, and HLD who presents with dyspnea, fevers and worsening productive cough for 1 week. Patient states she recently had family visiting with her young grandson who had a cough and runny nose which they thought was hay fever. She shortly after developed similar symptoms which developed into shortness of breath, cough and fevers. Had CXR 1 week ago which was clear, but UA showed possible UTI. Placed on 1 week of cipro. Her respiratory symptoms progressed until she was found to be 86% on room air at home. She was brought in by EMS thereafter. In the ED patient found to have left sided infiltrates consistent with PNA. Placed on high flow. She currently states she feels alot better on supp O2. She denies NV, abd pain, CP, diarrhea or syncope. Discharge Providers Provider Date of admission: 12/18/22 16:38 Discharge Date: 12/22/22 Primary care physician: Elbert Gamboa MD Consults: 12/18/22 16:53 Consult to Tele-medicinal chemist Routine Comment: Consulting Provider: [employer] Reason for consultation: Sl[employer] Control Operator Helper services Discharge provider: Darwin Lira DO Summary Hospital Course Discharge Diagnosis: # acute hypoxic respiratory failure, improving # community-acquired pneumonia # watery diarrhea, not present on admission # recent UTI # prior breast cancer # hyperlipidemia # HTN Hospital Course: This is a 77 year old female admitted with a community acquired pneumonia and acute respiratory failure with hypoxia. She improved with antibiotic administration, only requiring 1-2 L of supplemental oxygen at the time of discharge. Patient reported watery diarrhea with antiboitics, and C. diff was ordered but unable to be collected prior to discharge and this is presumed secondary to antibiotic therapy at the time of discharge. We discussed the risks and benefits continued antibiotics after discharge, and the patient elected for discharge without continued antibiotics after discussion. Given the dense consolidation on imaging and slow improvement, she was discharged home with supplemental oxygen, though the need for this will likely be minimal but follow up with primary care is recommended to further assess if there is a chronic hypoxia that was not known prior to admission. She was hypertensive, though BP was a bit soft with addition of two agents on the day of discharge. She was sent a prescription for losartan but should only start if systolic blood pressures are greater than 140 at home. Primary care follow up is again recommended after discharge for further BP monitoring. Time Spent with Patient Time spent: Greater than 30 minutes Exam Vital Signs (past 8 hours): - 12/22/22 04:27 12/22/22 09:00 12/22/22 09:39 Temperature 97.9 F 97.1 F L Pulse Rate 68 67 Respiratory Rate 16 17 Blood Pressure 171/79 H 105/55 L Pulse Oximetry 92 91 Oxygen Delivery Method Nasal Cannula Oxygen Flow Rate 0 Fraction of Inspired Oxygen 36 SaO2/FiO2 Ratio 261 Oxygen Delivery Method Nasal Cannula Oxygen Flow Rate 0 Narrative Exam Narrative: GEN: no acute distress, on NC HEENT: moist mucous membranes, PERRL NECK: trachea midline, no JVD CV: regular rate and rhythm, no murmurs PULM: extensive crackles of left lung base, no wheezes ABD: soft, nontender, nondistended, no organomegaly EXT: warm and well perfused with no edema NEURO: awake, alert, oriented, no focal deficits Objective Labs 12/21/22 03:12 12/21/22 03:12 [facility] Medical History Other hyperlipidemia (07/11/15) Social History household members: spouse Smoking Status: Never smoker Discharge Plan Discharge Plan Patient Disposition: Home Provider Discharge Comment: You were admitted to the hospital with a pneumonia. You completed antibiotics in the hospital, still requiring some oxygen which is likely short term. Your BP was high, started on a medication which was sent to the pharmacy. Do not start taking at home unless your BP at home (top #) is >140. If your diarrhea does not improve with cessation of antibiotics, please reach out to PCP about C. diff testing. Discharge orders & Medications Prescriptions: New losartan 25 mg tablet 25 mg PO DAILY 30 Days Qty: 30 0RF Continued pravastatin 40 mg tablet 40 mg PO Q EVENING Qty: 90 3RF triamcinolone acetonide 0.1 % cream 1 applic topical DAILY Qty: 30 1RF Hold Instructions: Prescribed by Fish Egg Packer. Just reported here Patient Comments: Pt. reports only in winter for dry skin calcium citrate 250 mg calcium Tablet 500 mg PO BID fluticasone furoate 27.5 mcg/actuation spray,suspension 2 spray intranasal DAILY Qty: 9.1 0RF Patient Comments: Pt. reports only using intermittently Rx Instructions: into each nostril ibuprofen 400 mg tablet 400 mg PO Q6H PRN (Reason: pain) Rx Instructions: TAKE 1 TABLET BY MOUTH EVERY 6 HOURS NEEDED FOR PAIN. STOP TAKING IF EXPERIENCING STOMACH PAIN OR GI UPSET. multivitamin [Multiple Vitamins] Tablet 1 tab PO DAILY anastrozole [Arimidex] 1 mg tablet 1 mg PO BEDTIME Patient Comments: Pt. reports that she takes this medication at night Follow up/Referrals: Elbert Gamboa MD [Primary Care Provider] - Diet/Activity/Treatments Diet: Diet as Tolerated Activity: As tolerated Visit Report/Discharge Packet Stand Alone Forms: Patient Portal/API, Stroke Signs & Symptoms Discharge Data Primary Care Provider: Elbert Gamboa Discharges patient from system. Discharge Date/Time: 12/22/22 14:01 Quality VTE Deep Vein Thrombosis/Pulmonary Embolism Present on Admission: No
[2022-12-22 10:13] VITALS: O2SAT 92
--- NOTE | 2022-12-22 12:08 | CM.DPC ---
DCP Cont: Patient is discharging home on oxygen, will be on one liter, hospitalist setting up. Met with patient and spouse, introduced self and role. Asked if she was interested in home health, since [facility] goes to the hart. Stated, would rather just follow up in the clinic, [place] Let patient and spouse know that if they change their mind, can go through the primary care clinic. P: Patient is discharging home today with oxygen. Declines home health at this time. Dinorah Warren RN/Puppy Trainer
== END 2022-12-22 14:01 | disposition home or self-care (01) | DRG 193 ==
LOC: ED 15:57 → AC 16:39 → ICU 16:50
PROVIDERS: Admitting Provider Student in an Organized Health Care Education/Training Program; Emergency Provider Emergency Medicine; PCP Family Medicine; Referring Provider Emergency Medicine; Visit Provider Student in an Organized Health Care Education/Training Program
DX: J18.9 Pneumonia, unspecified organism (principal); J96.01 Acute respiratory failure with hypoxia; J90 Pleural effusion, not elsewhere classified; C50.919 Malignant neoplasm of unspecified site of unspecified female breast; E78.5 Hyperlipidemia, unspecified; R00.0 Tachycardia, unspecified; R19.7 Diarrhea, unspecified; I10 Essential (primary) hypertension; Z87.440 Personal history of urinary (tract) infections
CPT/HCPCS: 36415; 36600; 71045; 71046; 71275; 76604; 80048; 80053; 81003; 81015; 82550; 82805; 83605; 83735; 83880; 84145; 84484; 85025; 85379; 85610; 85730; 87040; 87070; 87102; 87116; 87205; 87206; 87633; 87797; 87801; 93005; 93306; 94618; 94640; 94762; 96365; 96375; 99285; 99291; A9270; J0696; J1650; J2543; J2930; Q9967

== ENCOUNTER → 2023-02-25 08:33 | Outpatient (CLI) | payer MEDICARE, OTHER, SELFPAY ==
[2022-12-18 17:49] VITALS: BMI 25.2
--- NOTE | 2023-02-25 | DI.MG.S_ITS ---
BILATERAL DIGITAL SCREENING MAMMOGRAM 3D/2D WITH CAD: 02/25/2023 CLINICAL: Routine screening. Family history of breast cancer.Breast cancer. Comparison is made to exams dated: 02/21/2022 mammogram - [facility], 02/08/2021 mammogram, 11/07/2020 mammogram - [facility], and 01/31/2020 mammogram - [facility]. Both breasts are heterogeneously dense, which may obscure small masses (category c / 51-75% glandular tissue). Current study was also evaluated with a Computer Aided Detection (CAD) system. There are benign post operative findings in the left breast. No significant masses, calcifications, or other findings are seen in either breast. There has been no significant interval change. IMPRESSION: BENIGN There is no mammographic evidence of malignancy. A 1 year screening mammogram is recommended. This exam was interpreted at Station ID: [id number]. NOTE: For mammograms, a report in lay terms will be sent to the patient. Approximately 15% of breast malignancies will not be visualized mammographically. In the management of a palpable breast mass, a negative mammogram must not discourage biopsy of a clinically suspicious lesion. Electronically Signed By: Jesse negrete/sebastien:02/26/2023 09:30:53 copy to: ADDIS CLARK letter sent: Normal Exam ACR BI-RADS Category 2: Benign Finding(s) [id number]
== END ==
PROVIDERS: PCP Family Medicine; Referring Provider Internal Medicine; Visit Provider Internal Medicine
DX: Z12.31 Encounter for screening mammogram for malignant neoplasm of breast (principal); Z85.3 Personal history of malignant neoplasm of breast; Z80.3 Family history of malignant neoplasm of breast
CPT/HCPCS: 77063; 77067

== ENCOUNTER → 2023-08-26 11:16 | Outpatient (CLI) | payer MEDICARE, OTHER, SELFPAY ==
[2022-12-18 17:49] VITALS: BMI 25.2
== END ==
PROVIDERS: PCP Family Medicine; Visit Provider Physician Assistant
DX: R10.9 Unspecified abdominal pain (principal)
CPT/HCPCS: 87086

== ENCOUNTER → 2023-08-27 15:39 | Outpatient (CLI) | payer MEDICARE, OTHER, SELFPAY ==
[2022-12-18 17:49] VITALS: BMI 25.2
== END ==
PROVIDERS: PCP Family Medicine; Visit Provider Physician Assistant
DX: R19.5 Other fecal abnormalities (principal); R10.9 Unspecified abdominal pain
CPT/HCPCS: 87045

== ENCOUNTER → 2024-03-09 11:11 | Outpatient (CLI) | payer MEDICARE, OTHER, SELFPAY ==
[2022-12-18 17:49] VITALS: BMI 25.2
--- NOTE | 2024-03-09 11:12 | DI.MG.S_ITS ---
BILATERAL DIGITAL SCREENING MAMMOGRAM 3D/2D WITH CAD POST LUMPECTOMY: 03/09/2024 CLINICAL: Routine screening. Personal history of left breast cancer. Family history of Breast Cancer. Comparison is made to exams dated: 02/25/2023 mammogram, 02/21/2022 mammogram - [facility], and 02/08/2021 mammogram - [facility]. The breasts are heterogeneously dense, which may obscure small masses (category c / 51-75% glandular tissue). Current study was also evaluated with a Computer Aided Detection (CAD) system. There are benign calcifications in the left breast. There also are benign vascular calcifications in the right breast. Additionally, there are benign post operative findings in the left breast. No significant masses, calcifications, or other findings are seen in either breast. There has been no significant interval change. IMPRESSION: BENIGN There is no mammographic evidence of malignancy. A 1 year screening mammogram is recommended. This exam was interpreted at Station ID: [id number]. NOTE: For mammograms, a report in lay terms will be sent to the patient. Approximately 15% of breast malignancies will not be visualized mammographically. In the management of a palpable breast mass, a negative mammogram must not discourage biopsy of a clinically suspicious lesion. Electronically Signed By: Maryuri skinner/sebastien:03/09/2024 18:52:52 copy to: ADDIS CLARK letter sent: Normal Exam ACR BI-RADS Category 2: Benign
== END ==
PROVIDERS: PCP Family Medicine; Referring Provider Family Medicine; Visit Provider Family Medicine
DX: Z12.31 Encounter for screening mammogram for malignant neoplasm of breast (principal); Z85.3 Personal history of malignant neoplasm of breast; Z80.3 Family history of malignant neoplasm of breast; R92.333 Mammographic heterogeneous density, bilateral breasts
CPT/HCPCS: 77063; 77067

== ENCOUNTER → 2024-03-30 15:23 | Outpatient (CLI) | payer MEDICARE, OTHER, SELFPAY ==
[2022-12-18 17:49] VITALS: BMI 25.2
--- NOTE | 2024-03-30 15:24 | DI.RAD.S_ITS ---
PROCEDURE: XR DEXA AXIAL SKELETON INDICATIONS: MALIGNANT ELEANOR AREOLA LT BREAST COMPARISON: [facility], , XR DEXA AXIAL SKELETON, 07/02/2022, 11:54. [facility], CR, DEXA AXIAL SKELETON, 04/22/2016, 14:04. FINDINGS: Lumbar Spine: Bone mineral density 1.208 g/cm2, T score 1.5, 8.2 % *. Left Hip: Bone mineral density 1.043 g/cm2, T score 0.8. 0.6 %. Left Femoral Neck: Bone mineral density 0.852 g/cm2, T score 0.0. Right Hip: Bone mineral density 1.041 g/cm2, T score 0.8. 0.1 % Right Femoral Neck: Bone mineral density 0.851 g/cm2, T score 0.0. Fracture Risk Calculation (when applicable): 10-year fracture risk of a major osteoporotic fracture 8.3 percent and of a hip fracture 1.0 percent. (T score greater or equal to -1.0 to: NORMAL) (T score from -1.1 to -2.4: OSTEOPENIA) (T score less than or equal to -2.5: OSTEOPOROSIS) IMPRESSION: Bone mineral density is within normal limits. There is significant interval increase in bone mineral density at the lumbar spine. Follow-up guidelines as follows: Osteoporosis: Consider a repeat DEXA and Vertebral Fracture Assessment (VFA) exam in 2 years or sooner if medically necessary, to reassess this patient's status. Osteopenia: Consider a repeat DEXA in 2-3 years to reassess this patient's status, or if there is a new clinical indication. Normal: Consider a repeat DEXA in 5 years or sooner, or if there is a new clinical indication. All treatment decisions require clinical judgment and consideration of individual patient factors, including patient preferences, comorbidities, previous drug use, risk factors not captured in the FRAX model (e.g., frailty, falls, vitamin D deficiency, increased bone turnover, interval significant decline in bone density ) and possible under- or over-estimation of fracture risk by FRAX. In addition, the NOF Guide recommends that FDA-approved medical therapies be considered in postmenopausal women and men age >= 50 years with a: * Hip or vertebral (clinical or morphometric) fracture * T-score of <=-2.5 at the spine or hip * Ten-year fracture probability by FRAX of >= 3% for hip fracture or >=20% for major osteoporotic fracture. People with diagnosed cases of osteoporosis or at high risk for fracture should have regular bone mineral density tests. For patients eligible for Medicare, routine testing is allowed once every 2 years. The testing frequency can be increased to one year for patients who have rapidly progressing disease, those who are receiving or discontinuing medical therapy to restore bone mass, or have additional risk factors. Dictated by: Blake Dickens M.D. on 03/30/2024 at 21:01 Approved by: Blake Dickens M.D. on 03/30/2024 at 21:04
== END ==
PROVIDERS: PCP Family Medicine; Referring Provider Internal Medicine; Visit Provider Internal Medicine
DX: C50.012 Malignant neoplasm of nipple and areola, left female breast; Z17.0 Estrogen receptor positive status [ER+]; Z78.0 Asymptomatic menopausal state; Z79.811 Long term (current) use of aromatase inhibitors
CPT/HCPCS: 77080

== ENCOUNTER → 2024-04-01 10:36 | Outpatient (CLI) | payer MEDICARE, OTHER, SELFPAY ==
[2022-12-18 17:49] VITALS: BMI 25.2
[2024-04-01 19:30] LABS: Add Manual Diff / Slide Review NO; Basophils Absolute Auto 100 /uL (0-100); Eosinophils Absolute Auto 100 /uL (0-450); Eosinophils Percent Auto 2.6 % (2-4); Hematocrit 42.5 % (36-46); Hemoglobin 14.1 g/dL (12.0-16.0); Lymphocytes Absolute Auto 1800 /uL (1100-4500); Lymphocytes Percent Auto 33.2 % (25-40); Mean Corpuscular HGB Conc 33.3 % (30-36); Mean Corpuscular Hemoglobin 30.3 PG (26-34); Monocytes Absolute Auto 800 /uL (0-900); Monocytes Percent Auto 14.3 % (3-14); Neutrophils Absolute Auto 2600 /uL (1500-7000); Neutrophils Percent Auto 48.9 % (50-75); Platelet Count 233 X10^3/uL (150-400); Red Blood Cell Count 4.67 X10^6/uL (4.0-5.2); Red Cell Distribution Width 13.3 % (11.6-14.8); White Blood Cell Count 5.3 X10^3/uL (4.5-11.0)
[2024-04-01 19:47] LABS: Cholesterol 164 mg/dL (140-199); HDL Cholesterol 48 mg/dL (40-60); LDL Cholesterol Calculated 80 mg/dL (<100); Triglycerides 179 mg/dL (35-150)
[2024-04-01 19:48] LABS: Alanine Aminotransferase 26 IU/L (<35); Albumin 3.9 g/dL (3.5-5.0); Albumin Globulin Ratio 1.2 (1.0-2.8); Alkaline Phosphatase 92 U/L (38-126); Aspartate Aminotransferase 34 IU/L (14-36); BUN Creatinine Ratio 20.8 (6-22); Bilirubin Total 0.5 mg/dL (0.2-1.3); Blood Urea Nitrogen 15 mg/dL (7-17); Calcium 9.5 mg/dL (8.4-10.2); Carbon Dioxide 28 mmol/L (22-32); Chloride 106 mmol/L (98-107); Estimated Glomerular Filt Rate > 60 mL/min (>60); Globulin 3.3 g/dL (1.7-4.1); Glucose 99 mg/dL (80-110); HEMOLYSIS 16 (0-50); Potassium 4.1 mmol/L (3.4-5.1); Sodium 139 mmol/L (137-145); Total Protein 7.2 g/dL (6.3-8.2)
== END ==
PROVIDERS: PCP Family Medicine; Visit Provider Nurse Practitioner Family
DX: C50.012 Malignant neoplasm of nipple and areola, left female breast (principal); E78.2 Mixed hyperlipidemia; Z17.0 Estrogen receptor positive status [ER+]
CPT/HCPCS: 80053; 80061; 85025

== ENCOUNTER 2024-07-13 09:04 | Day surgery (SDC) | payer MEDICARE, OTHER, SELFPAY ==
[2022-12-18 17:49] VITALS: BMI 25.2
[2024-07-13] MEDS: LACTATED RINGERS 1,000 ML 42 ML IV (10:57)
[2024-07-13 11:09] VITALS: BP 155/72; PULSE 87; RESP 14; TEMP 36.2; O2SAT 98
--- NOTE | 2024-07-13 11:33 | PM.HP.IH.1 ---
History of Present Illness History of Present Illness Date Patient Seen: 07/13/24 Time Patient Seen: 11:33 Chief complaint: SDC Narrative: 79-year-old white female, 10 years since her last colonoscopy, presents for screening colonoscopy. No changes in bowel habits [facility] Medical History (Updated 07/13/24 @ 11:34 by Eliu Weiner MD) Colon cancer screening Other hyperlipidemia (07/11/15) Social History household members: spouse Smoking Status: Never smoker alcohol intake: current Meds Home Medications and Allergies Home Medications Medication Instructions Recorded Confirmed Type anastrozole 1 mg tablet (Arimidex) 1 mg PO BEDTIME 11/20/20 07/13/24 History ibuprofen 400 mg tablet 400 mg PO Q6H PRN pain 11/20/20 04/16/24 History multivitamin (Multiple Vitamins 1 tab PO DAILY 11/20/20 04/16/24 History tablet) calcium citrate 500 mg PO BID 12/18/22 04/16/24 History triamcinolone acetonide 0.1 % 1 applic topical DAILY PRN 04/17/23 04/16/24 History topical cream losartan 25 mg tablet 25 mg PO DAILY #90 tabs 04/16/24 07/13/24 Rx rosuvastatin 20 mg tablet 20 mg PO DAILY #90 tabs 06/22/24 07/13/24 Rx Allergies Allergy/AdvReac Type Severity Reaction Status Date / Time mussels Allergy Intermediate Vomiting Verified 07/13/24 10:56 Sulfa (Sulfonamide Allergy Mild Sores in Verified 07/13/24 10:56 Antibiotics) mouth [SULFA (SULFONAMIDE ANTIBIOTICS)] Exam Vital Signs (past 8 hours): - 07/13/24 11:09 Temperature 97.2 F L Pulse Rate 87 Respiratory Rate 14 Blood Pressure 155/72 H Pulse Oximetry 98 Oxygen Delivery Method Room Air Oxygen Delivery Method Room Air Narrative Exam Narrative: Gen: NAD, sitting comfortably in bed, appears well HEENT: Sclera are anicteric, head is normocephalic and atraumatic, trachea is midline. CV: RRR, no JVD Resp: clear to auscultation bilaterally, equal chest wall movement bilaterally Abd: soft, nontender, normoactive bowel sounds Ext: no edema, full range of motion Neuro: Cranial nerves II-XII grossly intact, no focal deficits Skin: No erythema or ecchymosis Assessment & Plan Assessment and plan (1) Colon cancer screening: Status: Acute Assessment & Plan narrative: Patient presents for colonoscopy Risks, benefits, alternatives to colonoscopy explained, including but not limited to bowel perforation or other serious complication requiring surgery at less than 1 in 5000 colonoscopies, abdominal pain, cramping or bleeding and less than 1% of colonoscopies, and the chances that we find a diagnosis that would require further intervention of about 2%. Patient agrees to proceed. Time-Based Coding :: [TOTAL MINUTES] spent with patient and on the chart (including review of chart, obtaining history, exam, reviewing outside data, placing orders, documenting exam and treatment plan, and counseling patient) on [DATE]. [facility] Supervisor Document charge(s): No
--- NOTE | 2024-07-13 11:52 | PM.OP.COLON ---
Operative Date/Time/Diagnoses Date of procedure: 07/13/24 Time of procedure: 11:53 Pre-op diagnosis: Colon screening Post-op diagnosis: same (Diverticulosis, internal hemorrhoids) Procedure & Clinicians Study performed: Colonoscopy Same procedure as scheduled: Yes Indications: Screening Surgeon: Eliu Weiner Procedure Notes SCOAP/Timeout: Performed Procedure in detail: Time-out was performed. Mac was induced. Patient was placed in left lateral decubitus position. The perineum was inspected without any gross abnormality. Lubricated pediatric colonoscope was inserted and advanced to the cecum. The terminal ileum was intubated. The colonoscope was withdrawn slowly inspecting the circumference of the colon. Extensive sigmoid diverticulosis. Very small polyps may have been missed, prep quality was adequate. Retroflexed view of the rectum showed small, non prolapsed nonbleeding internal hemorrhoids. The scope was withdrawn the patient was taken to PACU in good condition. Scope withdrawal time: 6 Sedation minutes: 11 Findings: divertiulosis and internal hemorrhoids Specimen(s): none sent Complications: none Post-procedure Recommendations: Colonoscopy in 10 years (No additional colonoscopy recommended at age 89) Follow up: as needed Disposition: PACU
[2024-07-13 11:56] VITALS: BP 138/53; PULSE 78; RESP 14; TEMP 36.1; O2SAT 94
[2024-07-13 12:01] VITALS: BP 134/60; PULSE 78; RESP 13; O2SAT 95
[2024-07-13 12:04] VITALS: BP 128/60; PULSE 80; RESP 15; TEMP 36.8; O2SAT 99
== END 2024-07-13 12:33 | disposition home or self-care (01) ==
PROVIDERS: Surgery; PCP Family Medicine; Referring Provider Surgery; Visit Provider Surgery
PROC: 0DJD8ZZ Inspection of Lower Intestinal Tract, Via Natural or Artificial Opening Endoscopic (ICD-10-PCS; CPT 45378; principal; 2024-07-13 11:15)
DX: Z12.11 Encounter for screening for malignant neoplasm of colon (principal); K57.30 Diverticulosis of large intestine without perforation or abscess without bleeding; K64.8 Other hemorrhoids
CPT/HCPCS: G0121; J2704

== ENCOUNTER → 2025-02-28 09:27 | Outpatient (CLI) | payer MEDICARE, OTHER, SELFPAY ==
[2022-12-18 17:49] VITALS: BMI 25.2
[2025-02-28 18:45] LABS: Add Manual Diff / Slide Review NO; Hematocrit 41.5 % (36-46); Hemoglobin 14.1 g/dL (12.0-16.0); Lymphocytes Absolute Auto 1900 /uL (1100-4500); Mean Corpuscular HGB Conc 33.9 % (30-36); Mean Corpuscular Hemoglobin 30.0 PG (26-34); Mean Corpuscular Volume 88.5 fL (80-100); Platelet Count 233 X10^3/uL (150-400)
[2025-02-28 18:54] LABS: Blood Urea Nitrogen 19 mg/dL (7-17); Calcium 9.7 mg/dL (8.4-10.2); Carbon Dioxide 29 mmol/L (22-32); Chloride 103 mmol/L (98-107); Cholesterol 165 mg/dL (140-199); Estimated Glomerular Filt Rate > 60 mL/min (>60); Glucose 88 mg/dL (70-99); HDL Cholesterol 50 mg/dL (40-60); HEMOLYSIS 29 (0-50); Potassium 4.3 mmol/L (3.4-5.1); Sodium 139 mmol/L (137-145); Triglycerides 173 mg/dL (35-150)
== END ==
PROVIDERS: PCP Family Medicine; Visit Provider Family Medicine
DX: R60.0 Localized edema (principal); E78.2 Mixed hyperlipidemia; I10 Essential (primary) hypertension
CPT/HCPCS: 80048; 80061; 85025

== ENCOUNTER → 2025-03-10 08:49 | Outpatient (CLI) | payer MEDICARE, OTHER, SELFPAY ==
[2022-12-18 17:49] VITALS: BMI 25.2
--- NOTE | 2025-03-10 08:52 | DI.MG.S_ITS ---
MM screening mammo BI: 03/10/2025. BI-RADS: 2 CLINICAL: 79-year old female for bilateral screening mammogram. No Tyrer-Cuzick risk score calculation due to the patient's personal history of breast cancer. Patient reports a history of left breast carcinoma diagnosed at age 74. Status-post left lumpectomy with radiation therapy. No first-degree family history of breast cancer. Current reported family history of breast cancer: paternal grandmother. History of ovarian cancer in one first-degree relative. Patient was diagnosed within the last 5 years. The patient reports testing negative for BRCA gene mutation. The patient had a prior left breast biopsy. PRIOR EXAMS: 03/09/2024, 02/25/2023, 02/21/2022, 02/21/2020, 01/31/2020, 01/06/2020, 09/24/2018, 06/24/2017, 05/21/2016. MAMMOGRAPHY TECHNIQUE: 2D and 3D (tomosynthesis) digital mammographic views obtained, with additional images as needed for full coverage. Current study was also evaluated with a Computer Aided Detection (CAD) system. DENSITY B. There are scattered areas of fibroglandular density. MAMMOGRAPHY FINDINGS Right: No suspicious mass, asymmetry, microcalcification, or other abnormality seen. Left: Benign-appearing calcification and post-surgical changes noted on the left. There are no suspicious masses, calcifications, or other findings in the breast. IMPRESSION: Right * No evidence of malignancy. Left * No evidence of malignancy with benign findings. RECOMMENDATIONS Bilateral * Annual screening mammography. OVERALL ASSESSMENT CATEGORY BI-RADS-2: Benign. The [employer] recommends annual screening mammography beginning at age 40 for women with average risk of breast cancer. ELECTRONICALLY SIGNED: Malgorzata Ahmadi M.D. on 03/10/2025 at 04:52:09 PM PT Interpreting Station ID: [id number]
== END ==
PROVIDERS: PCP Family Medicine; Referring Provider Family Medicine; Visit Provider Family Medicine
DX: Z12.31 Encounter for screening mammogram for malignant neoplasm of breast (principal); R92.1 Mammographic calcification found on diagnostic imaging of breast; Z85.3 Personal history of malignant neoplasm of breast; Z80.3 Family history of malignant neoplasm of breast; Z80.41 Family history of malignant neoplasm of ovary
CPT/HCPCS: 77063; 77067